=== PATIENT | male | born 1970 | race Caucasian/White ===

== ENCOUNTER 2022-02-03 16:16 | Inpatient (IN) | payer MEDICAID ==
[~2022-02-03] VITALS: Ht 170.2 cm; Wt 100.2 kg
[~2022-02-03 16:16] MED LIST: ATROPINE SULFATE 1MG/10ML SYR ONE; ETOMIDATE 2MG/ML 10ML VIAL IV ONE; SODIUM CHLORIDE 0.9% 10ML VIAL ONE; VECURONIUM BROMIDE 10 MG/VIAL IV ONE
[2022-02-03 16:37] LABS: BASOPHILS % 0.5 % (0.0-2.0); EOSINOPHILS % 0.6 % (0.0-5.0); HEMATOCRIT. 33.2 % (42.0-52.0); HEMOGLOBIN. 11.1 g/dL (14.0-18.0); LYMPHOCYTES % 14.9 % (20.0-50.0); MEAN CORPUSCULAR HEMOGLOBIN 28.9 pg (28.0-32.0); MEAN CORPUSCULAR VOLUME 86.7 fL (80.0-94.0); MEAN PLATELET VOLUME 9.9 fl (7.4-10.4); MONOCYTES % 11.2 % (2.0-8.0); NEUTROPHILS % 72.8 % (40.0-76.0); PLATELET 141 x1000/uL (130-400); RED BLOOD CELL COUNT 3.83 mill/uL (4.7-6.1); RED CELL DISTRIBUTION WIDTH 16.2 % (11.6-14.6)
[2022-02-03 16:42] LABS: CHLORIDE 103 mEq/L (98-107)
[2022-02-03] MEDS: LORAZEPAM 2MG/ML CPJ IV PRN (16:45)
[2022-02-03] MEDS ORDERED: SODIUM CHLORIDE 0.9% 1,000 ML IV NR (17:00)
[2022-02-03] MEDS ORDERED: LORAZEPAM 2MG/ML CPJ IV ONE ×2 (17:00→18:00)
[2022-02-03] MEDS ORDERED: LEVETIRACETAM 1000MG PREMIX 100 ML IV ONE ×2 (17:00→17:15)
[2022-02-03] MEDS ORDERED: FENTANYL 2500MCG/250ML PMX 250 ML IV PRN ×2 (17:15)
[2022-02-03] MEDS: PROPOFOL 10MG/ML 100ML 100 ML IV SCH (17:15)
[2022-02-03 18:18] LABS: CLARITY URINE CLEAR (CLEAR); COLOR URINE YELLOW (YELLOW); KETONES URINE NEGATIVE (NEGATIVE); LEUKOCYTE ESTERASE URINE 1+ (NEGATIVE); NITRITE URINE NEGATIVE (NEGATIVE); OCCULT BLOOD URINE 1+ (NEGATIVE); PH URINE 5.5 (4.5-8.0); PROTEIN URINE 1+ (NEGATIVE); SPECIFIC GRAVITY URINE 1.015 (1.005-1.030); UROBILINOGEN URINE 0.2 E.U./dL (0.2-1.0)
[2022-02-03 18:28] LABS: *AMPHETAMINES SCREEN URINE NEGATIVE (NEGATIVE); *BARBITURATES SCREEN URINE NEGATIVE (NEGATIVE)
[2022-02-03 18:29] LABS: *BENZODIAZEPINES SCREEN URINE NEGATIVE (NEGATIVE); *COCAINE SCREEN URINE NEGATIVE (NEGATIVE); METHADONE URINE SCREEN NEGATIVE (NEGATIVE); OPIATES URINE SCREEN NEGATIVE (NEGATIVE); PHENCYCLIDINE URINE SCREEN NEGATIVE (NEGATIVE)
[2022-02-03 18:30] LABS: CANNABINOID URINE SCREEN NEGATIVE (NEGATIVE)
[2022-02-03 18:41] LABS: BG BASE EXCESS -3.9 mmol/L (-2.0-2.0); BG CARBOXYHEMOGLOBIN 0.3 % (0.5-1.5); BG DEOXYHEMOGLOBIN 0.8 % (0.0-5.0); BG FRACTION INSPIRED OXYGEN 100; BG HCO3 ACT 19.7 mmol/L (22.0-26.0); BG METHEMOGLOBIN 0.3 % (0.0-1.5); BG OXYGEN SATURATION 99.2 % (92.0-98.5); BG OXYHEMOGLOBIN 98.6 % (94.0-97.0); BG PCO2 30.8 mmHg (35.0-45.0); BG PH 7.423 (7.350-7.450); BG SAMPLE SITE RIGHT RADIAL; BG TOTAL HEMOGLOBIN 10.7 g/dL (12.0-18.0); BG VENT MODE VENT - AC
[2022-02-03] MEDS ORDERED: IPRATROPIUM/ALBUTEROL 0.5-3(2.5)MG/3ML NEB HHN PRN (19:30)
[2022-02-03] MEDS ORDERED: DIPHENHYDRAMINE 50MG/ML VIAL IV PRN (19:30)
[2022-02-03] MEDS ORDERED: GUAIFENESIN 200MG/10ML SUGAR FREE UDC PO PRN (19:30)
[2022-02-03] MEDS ORDERED: DOCUSATE SODIUM 100MG CAPSULE PO PRN (19:30)
[2022-02-03] MEDS ORDERED: HYDRALAZINE 20MG/ML VIAL IV PRN (19:30)
[2022-02-03] MEDS ORDERED: HYDROCODONE/ACETAMINOPHEN 5/325MG TABLET PO PRN (19:30)
[2022-02-03] MEDS ORDERED: DEXTROSE 50% WATER 50ML SYRINGE IV PRN (19:30)
[2022-02-03] MEDS ORDERED: ACETAMINOPHEN 325MG TABLET PO PRN (19:30)
[2022-02-03] MEDS ORDERED: MORPHINE SULFATE 2 MG/ML CPJ (NOT FOR IM USE) IV PRN (19:30)
[2022-02-03] MEDS ORDERED: ONDANSETRON HCL 4MG/2ML INJ IV PRN (19:30)
[2022-02-03] MEDS ORDERED: MAGNESIUM/ALUMINUM HYDROXIDE/SIMETHICONE 30ML UDC PO PRN (19:30)
[2022-02-03] MEDS: ENOXAPARIN 40MG/0.4ML SYR SUBCUT SCH (21:01)
[2022-02-03] MEDS: BLOOD SUGAR DIAGNOSTIC STRIP TEST SCH (21:01)
[2022-02-03] MEDS: INSULIN LISPRO 100 UNITS/ML SUBCUT SCH (21:05)
[2022-02-03] MEDS ORDERED: NALOXONE HCL 0.4MG/ML VIAL IV PRN (21:30)
[2022-02-03] MEDS: SODIUM CHLORIDE 0.9% INJ 3ML FLUSH IVF SCH (22:13)
[2022-02-04] VITALS (80 sets, daily range): BP systolic 96–148; BP diastolic 66–92
[2022-02-04] MEDS: BLOOD SUGAR DIAGNOSTIC STRIP TEST SCH ×4 (01:30→18:55)
[2022-02-04] MEDS: LORAZEPAM 2MG/ML CPJ IV PRN ×2 (03:46→20:14)
[2022-02-04] MEDS: SODIUM CHLORIDE 0.9% INJ 3ML FLUSH IVF SCH ×3 (05:14→20:14)
[2022-02-04] MEDS: PROPOFOL 10MG/ML 100ML 100 ML IV SCH (05:15)
[2022-02-04 05:35] LABS: BASOPHILS % 0.4 % (0.0-2.0); HEMATOCRIT. 30.9 % (42.0-52.0); HEMOGLOBIN. 10.3 g/dL (14.0-18.0); LYMPHOCYTES % 20.4 % (20.0-50.0); MEAN CORPUSCULAR HEMOGLOBIN 29.1 pg (28.0-32.0); MEAN CORPUSCULAR VOLUME 87.2 fL (80.0-94.0); MEAN PLATELET VOLUME 10.1 fl (7.4-10.4); MONOCYTES % 11.9 % (2.0-8.0); NEUTROPHILS % 65.3 % (40.0-76.0); PLATELET 131 x1000/uL (130-400); RED BLOOD CELL COUNT 3.55 mill/uL (4.7-6.1); RED CELL DISTRIBUTION WIDTH 16.4 % (11.6-14.6)
[2022-02-04 05:53] LABS: CHLORIDE 108 mEq/L (98-107)
[2022-02-04] MEDS ORDERED: LEVETIRACETAM 500 MG in SODIUM CHLORIDE 0.9% 100 ML IV SCH (08:00)
[2022-02-04] MEDS: INSULIN LISPRO 100 UNITS/ML SUBCUT SCH ×3 (08:20→19:00)
[2022-02-04 08:29] LABS: BG CARBOXYHEMOGLOBIN 0.2 % (0.5-1.5); BG DEOXYHEMOGLOBIN 1.3 % (0.0-5.0); BG FRACTION INSPIRED OXYGEN 50; BG HCO3 ACT 18.6 mmol/L (22.0-26.0); BG METHEMOGLOBIN 0.2 % (0.0-1.5); BG OXYGEN SATURATION 98.7 % (92.0-98.5); BG OXYHEMOGLOBIN 98.3 % (94.0-97.0); BG PCO2 26.7 mmHg (35.0-45.0); BG PH 7.461 (7.350-7.450); BG PO2 229.7 mmHg (75.0-100.0); BG SAMPLE SITE LEFT RADIAL; BG VENT MODE VENT - AC
[2022-02-04] MEDS: LEVETIRACETAM 500MG PREMIX 100 ML IV SCH ×2 (09:18→20:14)
[2022-02-04] MEDS: DEXT 5%/0.45% NACL 1000ML 1,000 ML IV SCH (10:03)
[2022-02-04] MEDS ORDERED: MIDAZOLAM HCL 100 MG in SODIUM CHLORIDE 0.9% 80 ML IV PRN (11:30)
[2022-02-04] MEDS ORDERED: CEFTRIAXONE 1 G PREMIX 50 ML IV SCH (11:30)
[2022-02-04] MEDS: PANTOPRAZOLE SODIUM 40 MG/VIAL IV SCH (12:43)
[2022-02-04] MEDS: CEFTRIAXONE 1,000 MG in DEXTROSE 5% WATER 50 ML IV SCH (13:43)
[2022-02-04] MEDS: IPRATROPIUM/ALBUTEROL 0.5-3(2.5)MG/3ML NEB HHN SCH ×2 (14:22→20:48)
[2022-02-04] MEDS: FENTANYL 2500MCG/250ML PMX 250 ML IV PRN (14:29)
[2022-02-04] MEDS: ENOXAPARIN 40MG/0.4ML SYR SUBCUT SCH (19:00)
[2022-02-05] VITALS (50 sets, daily range): BP systolic 107–146; BP diastolic 62–96
[2022-02-05] MEDS: BLOOD SUGAR DIAGNOSTIC STRIP TEST SCH ×5 (00:42→23:28)
[2022-02-05] MEDS: INSULIN LISPRO 100 UNITS/ML SUBCUT SCH ×5 (00:42→23:29)
[2022-02-05] MEDS: LORAZEPAM 2MG/ML CPJ IV PRN ×4 (00:48→21:50)
[2022-02-05] MEDS: IPRATROPIUM/ALBUTEROL 0.5-3(2.5)MG/3ML NEB HHN SCH ×3 (02:22→19:58)
[2022-02-05] MEDS: DEXT 5%/0.45% NACL 1000ML 1,000 ML IV SCH (05:19)
[2022-02-05] MEDS: SODIUM CHLORIDE 0.9% INJ 3ML FLUSH IVF SCH ×3 (05:19→21:26)
[2022-02-05 07:04] LABS: BASOPHILS % 0.3 % (0.0-2.0); EOSINOPHILS % 2.4 % (0.0-5.0); HEMATOCRIT. 34.4 % (42.0-52.0); HEMOGLOBIN. 11.2 g/dL (14.0-18.0); LYMPHOCYTES % 12.4 % (20.0-50.0); MEAN CORPUSCULAR HEMOGLOBIN 29.4 pg (28.0-32.0); MEAN PLATELET VOLUME 10.7 fl (7.4-10.4); MONOCYTES % 12.3 % (2.0-8.0); NEUTROPHILS % 72.6 % (40.0-76.0); PLATELET 117 x1000/uL (130-400); RED BLOOD CELL COUNT 3.82 mill/uL (4.7-6.1); RED CELL DISTRIBUTION WIDTH 16.5 % (11.6-14.6)
[2022-02-05 07:45] LABS: CHLORIDE 109 mEq/L (98-107)
[2022-02-05] MEDS: PANTOPRAZOLE SODIUM 40 MG/VIAL IV SCH (08:58)
[2022-02-05] MEDS: LEVETIRACETAM 500MG PREMIX 100 ML IV SCH (08:58)
[2022-02-05 09:07] LABS: BG BASE EXCESS -2.6 mmol/L (-2.0-2.0); BG CARBOXYHEMOGLOBIN 0.3 % (0.5-1.5); BG FRACTION INSPIRED OXYGEN 40; BG HCO3 ACT 21.2 mmol/L (22.0-26.0); BG METHEMOGLOBIN 0.3 % (0.0-1.5); BG OXYHEMOGLOBIN 97.4 % (94.0-97.0); BG PCO2 33.5 mmHg (35.0-45.0); BG PH 7.419 (7.350-7.450); BG SAMPLE SITE RIGHT RADIAL; BG TOTAL HEMOGLOBIN 11.5 g/dL (12.0-18.0); BG VENT MODE VENT - AC
[2022-02-05] MEDS: CEFTRIAXONE 1,000 MG in DEXTROSE 5% WATER 50 ML IV SCH (12:39)
[2022-02-05] MEDS ORDERED: MAGNESIUM 2 G PREMIX 50 ML IV NR (16:00)
[2022-02-05] MEDS: FENTANYL 2500MCG/250ML PMX 250 ML IV PRN (16:42)
[2022-02-05] MEDS ORDERED: MIDAZOLAM 100MG/100ML PREMIX IV PRN (20:30)
[2022-02-05] MEDS ORDERED: LEVETIRACETAM 1000MG PREMIX 100 ML IV SCH (21:00)
[2022-02-05] MEDS: ENOXAPARIN 40MG/0.4ML SYR SUBCUT SCH (21:25)
[2022-02-05] MEDS ORDERED: LEVETIRACETAM 500MG PREMIX 100 ML IV NR (22:30)
[2022-02-06] VITALS (70 sets, daily range): BP systolic 83–167; BP diastolic 42–106
[2022-02-06] MEDS: IPRATROPIUM/ALBUTEROL 0.5-3(2.5)MG/3ML NEB HHN SCH ×4 (01:59→20:42)
[2022-02-06] MEDS: DEXT 5%/0.45% NACL 1000ML 1,000 ML IV SCH ×2 (02:44→21:38)
[2022-02-06] MEDS: LORAZEPAM 2MG/ML CPJ IV PRN ×2 (04:37→21:41)
[2022-02-06] MEDS: BLOOD SUGAR DIAGNOSTIC STRIP TEST SCH ×3 (05:37→17:14)
[2022-02-06] MEDS: INSULIN LISPRO 100 UNITS/ML SUBCUT SCH ×3 (05:38→17:14)
[2022-02-06] MEDS: PHENYTOIN 100 MG/4 ML UDC NG SCH ×3 (05:53→21:38)
[2022-02-06] MEDS: MIDAZOLAM HCL 100 MG in SODIUM CHLORIDE 0.9% 100 ML IV PRN (05:55)
[2022-02-06] MEDS: SODIUM CHLORIDE 0.9% INJ 3ML FLUSH IVF SCH ×3 (05:56→22:00)
[2022-02-06] MEDS: FENTANYL 2500MCG/250ML PMX 250 ML IV PRN ×2 (05:56→18:56)
[2022-02-06 06:00] LABS: BASOPHILS % 0.3 % (0.0-2.0); EOSINOPHILS % 2.4 % (0.0-5.0); HEMATOCRIT. 34.6 % (42.0-52.0); HEMOGLOBIN. 11.6 g/dL (14.0-18.0); LYMPHOCYTES % 18.2 % (20.0-50.0); MEAN CORPUSCULAR HEMOGLOBIN 29.7 pg (28.0-32.0); MEAN PLATELET VOLUME 10.1 fl (7.4-10.4); MONOCYTES % 12.2 % (2.0-8.0); NEUTROPHILS % 66.9 % (40.0-76.0); PLATELET 130 x1000/uL (130-400); RED BLOOD CELL COUNT 3.89 mill/uL (4.7-6.1); RED CELL DISTRIBUTION WIDTH 16.7 % (11.6-14.6)
[2022-02-06] MEDS: PANTOPRAZOLE SODIUM 40 MG/VIAL IV SCH (09:27)
[2022-02-06] MEDS: LEVETIRACETAM 1,500 MG in SODIUM CHLORIDE 0.9% 100 ML IV SCH ×2 (09:34→21:37)
[2022-02-06 09:36] LABS: BG BASE EXCESS -4.5 mmol/L (-2.0-2.0); BG CARBOXYHEMOGLOBIN 0.7 % (0.5-1.5); BG DEOXYHEMOGLOBIN 2.9 % (0.0-5.0); BG FRACTION INSPIRED OXYGEN 40; BG HCO3 ACT 20.6 mmol/L (22.0-26.0); BG METHEMOGLOBIN 0.3 % (0.0-1.5); BG OXYGEN SATURATION 97.1 % (92.0-98.5); BG OXYHEMOGLOBIN 96.1 % (94.0-97.0); BG PH 7.351 (7.350-7.450); BG PO2 103.8 mmHg (75.0-100.0); BG SAMPLE SITE LEFT RADIAL; BG TOTAL HEMOGLOBIN 12.7 g/dL (12.0-18.0); BG VENT MODE VENT - AC
[2022-02-06] MEDS: CEFTRIAXONE 1,000 MG in DEXTROSE 5% WATER 50 ML IV SCH (13:59)
[2022-02-06] MEDS: CLONIDINE 0.1MG TABLET PO PRN (14:58)
[2022-02-06] MEDS: ENOXAPARIN 30MG/0.3ML SYR SUBCUT SCH (21:38)
[2022-02-07] VITALS (59 sets, daily range): BP systolic 99–170; BP diastolic 37–136
[2022-02-07] MEDS: LORAZEPAM 2MG/ML CPJ IV PRN (00:46)
[2022-02-07] MEDS: MIDAZOLAM HCL 100 MG in SODIUM CHLORIDE 0.9% 100 ML IV PRN ×2 (00:46→21:06)
[2022-02-07] MEDS: BLOOD SUGAR DIAGNOSTIC STRIP TEST SCH ×4 (00:47→18:02)
[2022-02-07] MEDS: INSULIN LISPRO 100 UNITS/ML SUBCUT SCH ×4 (00:47→18:06)
[2022-02-07] MEDS: IPRATROPIUM/ALBUTEROL 0.5-3(2.5)MG/3ML NEB HHN SCH ×4 (02:06→20:32)
[2022-02-07] MEDS: FENTANYL 2500MCG/250ML PMX 250 ML IV PRN ×2 (03:11→13:28)
[2022-02-07] MEDS: SODIUM CHLORIDE 0.9% INJ 3ML FLUSH IVF SCH ×3 (05:17→21:21)
[2022-02-07] MEDS: PHENYTOIN 100 MG/4 ML UDC NG SCH ×3 (05:51→21:40)
[2022-02-07 06:32] LABS: BASOPHILS % 0.1 % (0.0-2.0); EOSINOPHILS % 2.8 % (0.0-5.0); HEMOGLOBIN. 10.2 g/dL (14.0-18.0); LYMPHOCYTES % 15.2 % (20.0-50.0); MEAN CORPUSCULAR HEMOGLOBIN 27.7 pg (28.0-32.0); MEAN CORPUSCULAR VOLUME 87.2 fL (80.0-94.0); MEAN PLATELET VOLUME 10.1 fl (7.4-10.4); MONOCYTES % 14.8 % (2.0-8.0); NEUTROPHILS % 67.1 % (40.0-76.0); PLATELET 136 x1000/uL (130-400); RED BLOOD CELL COUNT 3.67 mill/uL (4.7-6.1); RED CELL DISTRIBUTION WIDTH 16.4 % (11.6-14.6)
[2022-02-07 06:40] LABS: CHLORIDE 111 mEq/L (98-107)
[2022-02-07 09:08] LABS: BG CARBOXYHEMOGLOBIN 0.1 % (0.5-1.5); BG DEOXYHEMOGLOBIN 1.5 % (0.0-5.0); BG FRACTION INSPIRED OXYGEN 40; BG HCO3 ACT 19.6 mmol/L (22.0-26.0); BG METHEMOGLOBIN 0.3 % (0.0-1.5); BG OXYGEN SATURATION 98.5 % (92.0-98.5); BG OXYHEMOGLOBIN 98.1 % (94.0-97.0); BG PCO2 34.8 mmHg (35.0-45.0); BG PH 7.368 (7.350-7.450); BG PO2 135.1 mmHg (75.0-100.0); BG SAMPLE SITE RIGHT RADIAL; BG TOTAL HEMOGLOBIN 11.7 g/dL (12.0-18.0); BG VENT MODE VENT - AC
[2022-02-07] MEDS: LEVETIRACETAM 1,500 MG in SODIUM CHLORIDE 0.9% 100 ML IV SCH ×2 (12:14→21:20)
[2022-02-07] MEDS: PANTOPRAZOLE SODIUM 40 MG/VIAL IV SCH (12:48)
[2022-02-07] MEDS: ENOXAPARIN 30MG/0.3ML SYR SUBCUT SCH ×2 (12:58→21:07)
[2022-02-07] MEDS: SULFAMETHOXAZOLE/TRIMETHOPRIM 800/160MG TABLET PO SCH ×2 (12:59→22:59)
[2022-02-07] MEDS: DEXT 5%/0.45% NACL 1000ML 1,000 ML IV SCH (18:07)
[2022-02-07] MEDS ORDERED: AMLODIPINE 2.5MG TABLET NG SCH (21:00)
[2022-02-08] VITALS (62 sets, daily range): BP systolic 112–185; BP diastolic 69–113
[2022-02-08] MEDS: BLOOD SUGAR DIAGNOSTIC STRIP TEST SCH ×4 (00:15→18:17)
[2022-02-08] MEDS: INSULIN LISPRO 100 UNITS/ML SUBCUT SCH ×4 (00:20→18:21)
[2022-02-08] MEDS: CLONIDINE 0.1MG TABLET PO PRN (00:21)
[2022-02-08] MEDS: FENTANYL 2500MCG/250ML PMX 250 ML IV PRN (00:55)
[2022-02-08] MEDS: IPRATROPIUM/ALBUTEROL 0.5-3(2.5)MG/3ML NEB HHN SCH ×3 (01:26→14:19)
[2022-02-08] MEDS: MIDAZOLAM HCL 100 MG in SODIUM CHLORIDE 0.9% 100 ML IV PRN (05:01)
[2022-02-08] MEDS: SODIUM CHLORIDE 0.9% INJ 3ML FLUSH IVF SCH ×2 (06:00→14:57)
[2022-02-08] MEDS: PHENYTOIN 100 MG/4 ML UDC NG SCH ×2 (06:07→14:56)
[2022-02-08] MEDS: ENOXAPARIN 30MG/0.3ML SYR SUBCUT SCH (08:35)
[2022-02-08] MEDS: SULFAMETHOXAZOLE/TRIMETHOPRIM 800/160MG TABLET PO SCH (08:35)
[2022-02-08] MEDS: PANTOPRAZOLE SODIUM 40 MG/VIAL IV SCH (08:35)
[2022-02-08] MEDS ORDERED: AMLODIPINE 5MG TABLET NG SCH (09:00)
[2022-02-08 09:03] LABS: BG BASE EXCESS -2.3 mmol/L (-2.0-2.0); BG CARBOXYHEMOGLOBIN 0.2 % (0.5-1.5); BG DEOXYHEMOGLOBIN 2.8 % (0.0-5.0); BG FRACTION INSPIRED OXYGEN 40; BG HCO3 ACT 22.7 mmol/L (22.0-26.0); BG METHEMOGLOBIN 0.3 % (0.0-1.5); BG OXYGEN SATURATION 97.2 % (92.0-98.5); BG OXYHEMOGLOBIN 96.7 % (94.0-97.0); BG PCO2 39.6 mmHg (35.0-45.0); BG PEEP (cmH2O) 0 cmH2O; BG PH 7.376 (7.350-7.450); BG PO2 101.2 mmHg (75.0-100.0); BG SAMPLE SITE LEFT RADIAL; BG TOTAL HEMOGLOBIN 10.3 g/dL (12.0-18.0); BG VENT MODE VENT - AC
[2022-02-08] MEDS: LEVETIRACETAM 1,500 MG in SODIUM CHLORIDE 0.9% 100 ML IV SCH (09:24)
[2022-02-08 10:43] LABS: BG BASE EXCESS -5.1 mmol/L (-2.0-2.0); BG CARBOXYHEMOGLOBIN 0.3 % (0.5-1.5); BG CPAP (cmH2O) 0 cm(H2O); BG DEOXYHEMOGLOBIN 3.9 % (0.0-5.0); BG FRACTION INSPIRED OXYGEN 40; BG HCO3 ACT 21.1 mmol/L (22.0-26.0); BG METHEMOGLOBIN 0.3 % (0.0-1.5); BG OXYGEN SATURATION 96.1 % (92.0-98.5); BG OXYHEMOGLOBIN 95.5 % (94.0-97.0); BG PEEP (cmH2O) 0 cmH2O; BG PH 7.299 (7.350-7.450); BG PO2 97.9 mmHg (75.0-100.0); BG SAMPLE SITE LEFT RADIAL; BG TOTAL HEMOGLOBIN 10.9 g/dL (12.0-18.0); BG VENT MODE VENT - CPAP
[2022-02-08] MEDS ORDERED: LIDOCAINE HCL 1% 10 MG/ML 10ML VIAL ONE (13:19)
[2022-02-08] MEDS: DEXT 5%/0.45% NACL 1000ML 1,000 ML IV SCH (14:57)
== END 2022-02-08 21:46 | disposition left against medical advice (07) | DRG 720 ==
LOC: ER 16:16 → CVICU 19:01 → ENRESERV 23:43
PROVIDERS: ADMIT Internal Medicine; ATTEND Internal Medicine
PROC: 5A1955Z Respiratory Ventilation, Greater than 96 Consecutive Hours (ICD-10-PCS; principal; 2022-02-03)
PROC: 0BH17EZ Insertion of Endotracheal Airway into Trachea, Via Natural or Artificial Opening (ICD-10-PCS; 2022-02-03)
PROC: 4A10X4Z Monitoring of Central Nervous Electrical Activity, External Approach (ICD-10-PCS; 2022-02-05)
PROC: 0JBR0ZZ Excision of Left Foot Subcutaneous Tissue and Fascia, Open Approach (ICD-10-PCS; 2022-02-08)
PROC: 02HV33Z Insertion of Infusion Device into Superior Vena Cava, Percutaneous Approach (ICD-10-PCS; 2022-02-08)
PROC: B548ZZA Ultrasonography of Superior Vena Cava, Guidance (ICD-10-PCS; 2022-02-08)
DX: A41.51 Sepsis due to Escherichia coli [E. coli] (principal); J96.01 Acute respiratory failure with hypoxia; G93.40 Encephalopathy, unspecified; G40.401 Other generalized epilepsy and epileptic syndromes, not intractable, with status epilepticus; E72.20 Disorder of urea cycle metabolism, unspecified; I13.2 Hypertensive heart and chronic kidney disease with heart failure and with stage 5 chronic kidney disease, or end stage renal disease; N17.9 Acute kidney failure, unspecified; E11.22 Type 2 diabetes mellitus with diabetic chronic kidney disease; E87.3 Alkalosis; N30.00 Acute cystitis without hematuria; I25.10 Atherosclerotic heart disease of native coronary artery without angina pectoris; E11.621 Type 2 diabetes mellitus with foot ulcer; E87.5 Hyperkalemia; E11.65 Type 2 diabetes mellitus with hyperglycemia; E66.09 Other obesity due to excess calories; E83.42 Hypomagnesemia; E78.00 Pure hypercholesterolemia, unspecified; N18.6 End stage renal disease; R00.1 Bradycardia, unspecified; S50.821A Blister (nonthermal) of right forearm, initial encounter; X58.XXXA Exposure to other specified factors, initial encounter; I50.9 Heart failure, unspecified; Z86.73 Personal history of transient ischemic attack (TIA), and cerebral infarction without residual deficits; Z86.74 Personal history of sudden cardiac arrest; I25.2 Old myocardial infarction; Z78.1 Physical restraint status; Y93.89 Activity, other specified; Y92.89 Other specified places as the place of occurrence of the external cause; Y99.8 Other external cause status
CPT/HCPCS: 36415; 36600; 71045; 76937; 80048; 80053; 80305; 80320; 81003; 82040; 82140; 82375; 82805; 82962; 83036; 83735; 83880; 84134; 84443; 84484; 85025; 87070; 87077; 87186; 93005; 93306; 94002; 94003; 94640; 95816; 99291; C1725; C1769; C9113; J0461; J0696; J1650; J1815; J1953; J2060; J2250; J2704; J3010; J3475; J3490; J7040; J7050; J7060; A4315; G0480

== ENCOUNTER 2022-02-26 11:54 | Inpatient (IN) | payer MEDICAID ==
[~2022-02-26] VITALS: Ht 177.8 cm; Wt 103.0 kg
[2022-02-26 13:15] LABS: HEMATOCRIT. 33.2 % (42.0-52.0); MEAN CORPUSCULAR HEMOGLOBIN 28.7 pg (28.0-32.0); MEAN CORPUSCULAR VOLUME 86.7 fL (80.0-94.0); MEAN PLATELET VOLUME 9.4 fl (7.4-10.4); PLATELET 183 x1000/uL (130-400); RED BLOOD CELL COUNT 3.83 mill/uL (4.7-6.1); RED CELL DISTRIBUTION WIDTH 16.4 % (11.6-14.6)
[2022-02-26 13:43] LABS: CHLORIDE 105 mEq/L (98-107); CREATINE KINASE 61 IU/L (39-308); ETHANOL BLOOD < 10 mg/dL
[2022-02-26 13:52] LABS: PLATELET ESTIMATE NORMAL
[2022-02-26 13:54] LABS: CLARITY URINE CLEAR (CLEAR); COLOR URINE YELLOW (YELLOW); KETONES URINE NEGATIVE (NEGATIVE); LEUKOCYTE ESTERASE URINE NEGATIVE (NEGATIVE); NITRITE URINE NEGATIVE (NEGATIVE); OCCULT BLOOD URINE NEGATIVE (NEGATIVE); PROTEIN URINE 1+ (NEGATIVE); SPECIFIC GRAVITY URINE 1.016 (1.005-1.030); UROBILINOGEN URINE 0.2 E.U./dL (0.2-1.0)
[2022-02-26] MEDS ORDERED: ASPIRIN 325MG EC TABLET PO NR (14:00)
[2022-02-26 14:10] LABS: *AMPHETAMINES SCREEN URINE NEGATIVE (NEGATIVE); *BARBITURATES SCREEN URINE NEGATIVE (NEGATIVE); *BENZODIAZEPINES SCREEN URINE NEGATIVE (NEGATIVE); *COCAINE SCREEN URINE NEGATIVE (NEGATIVE); METHADONE URINE SCREEN NEGATIVE (NEGATIVE); OPIATES URINE SCREEN NEGATIVE (NEGATIVE); PHENCYCLIDINE URINE SCREEN NEGATIVE (NEGATIVE)
[2022-02-26 14:11] LABS: CANNABINOID URINE SCREEN NEGATIVE (NEGATIVE)
[2022-02-26] MEDS ORDERED: INSULIN REGULAR (HUMULIN R) 300UNITS/3ML VIAL SUBCUT NR (14:30)
[2022-02-26] MEDS ORDERED: HYDRALAZINE 20MG/ML VIAL IV ONE (16:30)
[2022-02-26] MEDS ORDERED: ONDANSETRON HCL 4MG/2ML INJ IV PRN (16:45)
[2022-02-26] MEDS ORDERED: GUAIFENESIN 200MG/10ML SUGAR FREE UDC PO PRN (16:45)
[2022-02-26] MEDS ORDERED: MAGNESIUM/ALUMINUM HYDROXIDE/SIMETHICONE 30ML UDC PO PRN (16:45)
[2022-02-26] MEDS ORDERED: CLONIDINE 0.1MG TABLET PO PRN (16:45)
[2022-02-26] MEDS ORDERED: ACETAMINOPHEN 325MG TABLET PO PRN ×2 (16:45)
[2022-02-26] MEDS ORDERED: ENOXAPARIN 40MG/0.4ML SYR SUBCUT SCH (16:45)
[2022-02-26] MEDS: HYDROCODONE/ACETAMINOPHEN 5/325MG TABLET PO PRN (16:55)
[2022-02-26] MEDS: ENOXAPARIN 30MG/0.3ML SYR SUBCUT SCH (19:52)
[2022-02-26 20:00] VITALS: BP 179/94
[2022-02-26] MEDS ORDERED: DEXTROSE 50% WATER 50ML SYRINGE IV PRN (21:15)
[2022-02-26] MEDS ORDERED: KEPP500 PO (21:35)
[2022-02-26] MEDS ORDERED: DIVA-75 PO (21:35)
[2022-02-26] MEDS: LORAZEPAM 2MG/ML CPJ IV PRN (21:47)
[2022-02-26] MEDS ORDERED: LEVETIRACETAM 500MG TABLET PO SCH (22:30)
[2022-02-27] VITALS (7 sets, daily range): BP systolic 120–179; BP diastolic 70–94
[2022-02-27] MEDS: ATORVASTATIN CALCIUM 40MG TABLET PO SCH ×2 (00:06→20:41)
[2022-02-27] MEDS: INSULIN GLARGINE 100 UNITS/ML SUBCUT SCH ×2 (00:07→22:11)
[2022-02-27] MEDS: HYDROCODONE/ACETAMINOPHEN 5/325MG TABLET PO PRN (00:24)
[2022-02-27] MEDS ORDERED: CARV12.545 PO (03:20)
[2022-02-27] MEDS ORDERED: ATOR-2 PO (03:20)
[2022-02-27] MEDS ORDERED: DICL100G31 TP (03:20)
[2022-02-27] MEDS ORDERED: DIVA-75 PO (03:20)
[2022-02-27] MEDS ORDERED: CHLO25TA2 PO (03:20)
[2022-02-27] MEDS ORDERED: AMLO10TA80 MT (03:20)
[2022-02-27] MEDS ORDERED: ASPI-1160 PO (03:20)
[2022-02-27] MEDS ORDERED: SERT-422 PO (03:30)
[2022-02-27] MEDS ORDERED: TRAZ-251 PO (03:30)
[2022-02-27] MEDS ORDERED: INSU100I28 SQ (03:30)
[2022-02-27] MEDS ORDERED: FERR325T6 PO (03:30)
[2022-02-27] MEDS ORDERED: TAMS-11 PO (03:30)
[2022-02-27] MEDS ORDERED: OMEP20CA14 PO (03:30)
[2022-02-27] MEDS ORDERED: SILV50CR31 TP (03:30)
[2022-02-27] MEDS ORDERED: RIVA20TA PO (03:30)
[2022-02-27] MEDS ORDERED: GABA-529 PO (03:30)
[2022-02-27] MEDS ORDERED: [UNRECOGNIZED DRUG - CODE] TP (03:30)
[2022-02-27] MEDS: ENOXAPARIN 30MG/0.3ML SYR SUBCUT SCH (06:00)
[2022-02-27] MEDS: BLOOD SUGAR DIAGNOSTIC STRIP TEST SCH ×4 (06:36→20:51)
[2022-02-27] MEDS: INSULIN LISPRO 100 UNITS/ML SUBCUT SCH ×4 (06:36→22:11)
[2022-02-27 07:23] LABS: BASOPHILS % 0.3 % (0.0-2.0); EOSINOPHILS % 3.8 % (0.0-5.0); HEMATOCRIT. 33.5 % (42.0-52.0); LYMPHOCYTES % 25.8 % (20.0-50.0); MEAN CORPUSCULAR HEMOGLOBIN 28.9 pg (28.0-32.0); MEAN PLATELET VOLUME 9.7 fl (7.4-10.4); MONOCYTES % 11.3 % (2.0-8.0); NEUTROPHILS % 58.8 % (40.0-76.0); PLATELET 183 x1000/uL (130-400)
[2022-02-27 07:25] LABS: CHLORIDE 108 mEq/L (98-107)
[2022-02-27 07:33] LABS: PHOSPHORUS 2.9 mg/dL (2.5-4.9)
[2022-02-27 07:35] LABS: TOTAL IRON BINDING CAPACITY 260 ug/dL (250-450)
[2022-02-27 07:53] LABS: VALPROIC ACID < 3.0 ug/mL (50-100)
[2022-02-27 07:59] LABS: FOLIC ACID (FOLATE) SERUM 15.6 ng/mL (>5.38)
[2022-02-27] MEDS ORDERED: DIVALPROEX SODIUM 500MG DR TABLET PO SCH (10:00)
[2022-02-27] MEDS ORDERED: MAGNESIUM OXIDE 400MG TABLET PO SCH (10:00)
[2022-02-27] MEDS: LEVETIRACETAM 500MG TABLET PO SCH ×2 (10:06→20:41)
[2022-02-27] MEDS: GABAPENTIN 100MG CAPSULE PO SCH ×3 (10:07→17:53)
[2022-02-27] MEDS: AMLODIPINE 10MG TABLET PO SCH (10:07)
[2022-02-27] MEDS: SERTRALINE HCL 50MG TABLET PO SCH (10:07)
[2022-02-27] MEDS: CARVEDILOL 12.5MG TABLET PO SCH ×2 (10:08→20:42)
[2022-02-27] MEDS: TAMSULOSIN HCL 0.4MG SR CAPSULE PO SCH (10:16)
[2022-02-27] MEDS ORDERED: INFLUENZA VACCINE 05/PF 0.5 ML SYRINGE IM ONE (12:00)
[2022-02-27] MEDS: KETOROLAC 15MG/ML VIAL IV PRN ×2 (16:02→22:32)
[2022-02-27] MEDS: CHLORTHALIDONE 25MG TABLET PO SCH ×2 (16:03→22:10)
[2022-02-27] MEDS: DIVALPROEX SODIUM 500MG DR TABLET PO SCH ×2 (16:09→20:42)
[2022-02-27] MEDS: MAGNESIUM OXIDE 400MG TABLET PO SCH ×2 (16:13→22:07)
[2022-02-27] MEDS: RIVAROXABAN 20 MG TABLET PO SCH (17:53)
[2022-02-27] MEDS ORDERED: BACL-141 PO (20:56)
[2022-02-28] VITALS: BP 119/65
[2022-02-28 04:00] VITALS: BP 154/87
[2022-02-28] MEDS: BACLOFEN 10MG TABLET PO SCH ×3 (06:43→21:57)
[2022-02-28] MEDS: BLOOD SUGAR DIAGNOSTIC STRIP TEST SCH ×4 (06:51→20:55)
[2022-02-28] MEDS: INSULIN LISPRO 100 UNITS/ML SUBCUT SCH ×4 (06:52→20:55)
[2022-02-28 07:48] LABS: BASOPHILS % 0.3 % (0.0-2.0); EOSINOPHILS % 3.4 % (0.0-5.0); HEMATOCRIT. 37.4 % (42.0-52.0); HEMOGLOBIN. 11.8 g/dL (14.0-18.0); LYMPHOCYTES % 26.8 % (20.0-50.0); MEAN CORPUSCULAR HEMOGLOBIN 28.9 pg (28.0-32.0); MEAN CORPUSCULAR VOLUME 91.8 fL (80.0-94.0); MEAN PLATELET VOLUME 9.8 fl (7.4-10.4); MONOCYTES % 10.9 % (2.0-8.0); NEUTROPHILS % 58.6 % (40.0-76.0); PLATELET 172 x1000/uL (130-400); RED BLOOD CELL COUNT 4.07 mill/uL (4.7-6.1); RED CELL DISTRIBUTION WIDTH 16.6 % (11.6-14.6)
[2022-02-28] MEDS: KETOROLAC 15MG/ML VIAL IV PRN (07:51)
[2022-02-28 08:00] VITALS: BP 163/91
[2022-02-28] MEDS: AMLODIPINE 10MG TABLET PO SCH (08:06)
[2022-02-28] MEDS: SERTRALINE HCL 50MG TABLET PO SCH (08:06)
[2022-02-28] MEDS: CARVEDILOL 12.5MG TABLET PO SCH ×2 (08:06→20:42)
[2022-02-28] MEDS: GABAPENTIN 100MG CAPSULE PO SCH ×3 (08:06→17:42)
[2022-02-28] MEDS: LEVETIRACETAM 500MG TABLET PO SCH ×2 (08:06→20:42)
[2022-02-28] MEDS: DIVALPROEX SODIUM 500MG DR TABLET PO SCH ×2 (08:06→20:42)
[2022-02-28] MEDS: TAMSULOSIN HCL 0.4MG SR CAPSULE PO SCH (08:06)
[2022-02-28 08:22] LABS: PHOSPHORUS 3.8 mg/dL (2.5-4.9)
[2022-02-28] MEDS ORDERED: VERAPAMIL HCL 2.5 MG/1 ML 2ML VIAL IV ONE (08:58)
[2022-02-28] MEDS ORDERED: DIPHENHYDRAMINE 50MG/ML VIAL ONE (08:58)
[2022-02-28] MEDS ORDERED: LIDOCAINE HCL 1% 20ML VIAL (Pyxis) INJ ONE (08:58)
[2022-02-28] MEDS ORDERED: MIDAZOLAM HCL 2 MG/2 ML VIAL ONE (08:59)
[2022-02-28] MEDS ORDERED: FENTANYL CITRATE/PF 50MCG/ML 2ML VIAL ONE (08:59)
[2022-02-28] MEDS ORDERED: IODIXANOL 320MG/ML 100 ML BOTTLE IV ONE (08:59)
[2022-02-28] MEDS ORDERED: SODIUM CHLORIDE 0.9% 1,000 ML IV ONE ×2 (10:45→23:15)
[2022-02-28] MEDS ORDERED: ATROPINE SULFATE 1MG/10ML SYR IV PRN (10:45)
[2022-02-28 12:00] VITALS: BP_SYST 118; BP_SYST 19; BP_DIAS 83
[2022-02-28] MEDS ORDERED: NICARDIPINE 100MCG/ML 10ML VIAL (CATH LAB) IV ONE (14:57)
[2022-02-28] MEDS ORDERED: NITROGLYCERIN 50MCG/ML 10ML VIAL (CATH LAB) IV ONE (14:57)
[2022-02-28] MEDS ORDERED: HEPARIN SODIUM 1,000 UNIT/1ML VIAL IV ONE (14:57)
[2022-02-28 16:00] VITALS: BP 132/90
[2022-02-28] MEDS: RIVAROXABAN 20 MG TABLET PO SCH (17:42)
[2022-02-28 20:00] VITALS: BP 125/76
[2022-02-28] MEDS: CHLORTHALIDONE 25MG TABLET PO SCH (20:42)
[2022-02-28] MEDS: ATORVASTATIN CALCIUM 40MG TABLET PO SCH (20:42)
[2022-02-28] MEDS: HYDROCODONE/ACETAMINOPHEN 5/325MG TABLET PO PRN (20:43)
[2022-02-28] MEDS: INSULIN GLARGINE 100 UNITS/ML SUBCUT SCH (21:57)
[2022-02-28] MEDS: LORAZEPAM 2MG/ML CPJ IV PRN (23:56)
[2022-03-01 00:15] VITALS: BP 131/95
[2022-03-01 04:00] VITALS: BP 119/73
[2022-03-01] MEDS: BACLOFEN 10MG TABLET PO SCH ×3 (05:28→21:42)
[2022-03-01] MEDS: INSULIN LISPRO 100 UNITS/ML SUBCUT SCH ×4 (06:31→21:45)
[2022-03-01] MEDS: BLOOD SUGAR DIAGNOSTIC STRIP TEST SCH ×4 (06:31→21:25)
[2022-03-01 08:00] VITALS: BP 183/76
[2022-03-01] MEDS: DIVALPROEX SODIUM 500MG DR TABLET PO SCH ×2 (09:00→21:42)
[2022-03-01] MEDS: AMLODIPINE 10MG TABLET PO SCH (09:00)
[2022-03-01] MEDS: CARVEDILOL 12.5MG TABLET PO SCH ×2 (09:00→21:42)
[2022-03-01] MEDS: GABAPENTIN 100MG CAPSULE PO SCH ×3 (09:00→17:00)
[2022-03-01] MEDS: TAMSULOSIN HCL 0.4MG SR CAPSULE PO SCH (09:00)
[2022-03-01] MEDS: SERTRALINE HCL 50MG TABLET PO SCH (09:00)
[2022-03-01] MEDS: LORAZEPAM 2MG/ML CPJ IV PRN ×2 (09:04→09:17)
[2022-03-01] MEDS: LEVETIRACETAM 1000MG PREMIX 100 ML IV SCH ×2 (09:35→21:41)
[2022-03-01 10:06] LABS: BG BASE EXCESS -1.1 mmol/L (-2.0-2.0); BG CARBOXYHEMOGLOBIN 0.4 % (0.5-1.5); BG DEOXYHEMOGLOBIN 2.7 % (0.0-5.0); BG FRACTION INSPIRED OXYGEN 28; BG HCO3 ACT 25.3 mmol/L (22.0-26.0); BG METHEMOGLOBIN 0.1 % (0.0-1.5); BG OXYGEN SATURATION 97.3 % (92.0-98.5); BG OXYHEMOGLOBIN 96.8 % (94.0-97.0); BG PCO2 49.6 mmHg (35.0-45.0); BG PH 7.325 (7.350-7.450); BG PO2 109.7 mmHg (75.0-100.0); BG SAMPLE SITE LEFT RADIAL; BG TOTAL HEMOGLOBIN 11.5 g/dL (12.0-18.0); BG VENT MODE NASAL CANNULA
[2022-03-01 12:00] VITALS: BP 165/90
[2022-03-01 16:00] VITALS: BP 134/79
[2022-03-01 16:11] LABS: BASOPHILS % 0.1 % (0.0-2.0); EOSINOPHILS % 3.9 % (0.0-5.0); HEMATOCRIT. 34.4 % (42.0-52.0); HEMOGLOBIN. 11.2 g/dL (14.0-18.0); LYMPHOCYTES % 23.9 % (20.0-50.0); MEAN CORPUSCULAR HEMOGLOBIN 28.7 pg (28.0-32.0); MEAN CORPUSCULAR VOLUME 88.6 fL (80.0-94.0); MEAN PLATELET VOLUME 9.9 fl (7.4-10.4); MONOCYTES % 10.3 % (2.0-8.0); NEUTROPHILS % 61.8 % (40.0-76.0); PLATELET 159 x1000/uL (130-400); RED BLOOD CELL COUNT 3.88 mill/uL (4.7-6.1); RED CELL DISTRIBUTION WIDTH 16.4 % (11.6-14.6)
[2022-03-01 16:21] LABS: INR 1.1; PROTHROMBIN TIME 11.9 sec (9.6-11.0)
[2022-03-01 16:43] LABS: CHLORIDE 108 mEq/L (98-107)
[2022-03-01 16:59] LABS: PHENOBARBITAL < 2.1 ug/mL (15.0-40.0)
[2022-03-01] MEDS: RIVAROXABAN 20 MG TABLET PO SCH (18:06)
[2022-03-01 20:00] VITALS: BP 144/68
[2022-03-01] MEDS: CHLORTHALIDONE 25MG TABLET PO SCH (21:43)
[2022-03-01] MEDS: ATORVASTATIN CALCIUM 40MG TABLET PO SCH (21:48)
[2022-03-01] MEDS: INSULIN GLARGINE 100 UNITS/ML SUBCUT SCH (22:19)
[2022-03-02] VITALS (7 sets, daily range): BP systolic 109–157; BP diastolic 63–95
[2022-03-02] MEDS: BACLOFEN 10MG TABLET PO SCH ×3 (05:58→20:58)
[2022-03-02] MEDS: BLOOD SUGAR DIAGNOSTIC STRIP TEST SCH ×4 (07:30→21:07)
[2022-03-02] MEDS: LORAZEPAM 2MG/ML CPJ IV PRN (07:42)
[2022-03-02] MEDS: LEVETIRACETAM 1000MG PREMIX 100 ML IV SCH ×3 (08:32→21:09)
[2022-03-02] MEDS: INSULIN LISPRO 100 UNITS/ML SUBCUT SCH ×4 (10:01→20:53)
[2022-03-02] MEDS: GABAPENTIN 100MG CAPSULE PO SCH ×3 (10:07→17:00)
[2022-03-02] MEDS: TAMSULOSIN HCL 0.4MG SR CAPSULE PO SCH (10:07)
[2022-03-02] MEDS: AMLODIPINE 10MG TABLET PO SCH (10:09)
[2022-03-02] MEDS: SERTRALINE HCL 50MG TABLET PO SCH (10:09)
[2022-03-02] MEDS: CARVEDILOL 12.5MG TABLET PO SCH ×2 (10:10→20:55)
[2022-03-02] MEDS: DIVALPROEX SODIUM 500MG DR TABLET PO SCH (10:10)
[2022-03-02] MEDS: RIVAROXABAN 20 MG TABLET PO SCH (17:43)
[2022-03-02] MEDS: INSULIN GLARGINE 100 UNITS/ML SUBCUT SCH (20:53)
[2022-03-02] MEDS: ATORVASTATIN CALCIUM 40MG TABLET PO SCH (20:58)
[2022-03-02] MEDS: CHLORTHALIDONE 25MG TABLET PO SCH (21:09)
[2022-03-02] MEDS: LEVETIRACETAM 1,500 MG in SODIUM CHLORIDE 0.9% 100 ML IV SCH (21:11)
[2022-03-02] MEDS ORDERED: NALOXONE HCL 0.4MG/ML VIAL IV PRN (21:30)
[2022-03-03] VITALS (9 sets, daily range): BP systolic 106–160; BP diastolic 59–102
[2022-03-03] MEDS: LORAZEPAM 2MG/ML CPJ IV PRN (05:41)
[2022-03-03] MEDS: BACLOFEN 10MG TABLET PO SCH ×3 (05:51→20:51)
[2022-03-03 06:23] LABS: BASOPHILS % 0.1 % (0.0-2.0); HEMATOCRIT. 33.4 % (42.0-52.0); HEMOGLOBIN. 10.9 g/dL (14.0-18.0); LYMPHOCYTES % 13.8 % (20.0-50.0); MEAN CORPUSCULAR HEMOGLOBIN 28.7 pg (28.0-32.0); MEAN CORPUSCULAR VOLUME 87.7 fL (80.0-94.0); NEUTROPHILS % 76.1 % (40.0-76.0); PLATELET 167 x1000/uL (130-400); RED BLOOD CELL COUNT 3.81 mill/uL (4.7-6.1); RED CELL DISTRIBUTION WIDTH 16.8 % (11.6-14.6)
[2022-03-03] MEDS: BLOOD SUGAR DIAGNOSTIC STRIP TEST SCH ×4 (07:40→20:51)
[2022-03-03 07:49] LABS: BG BASE EXCESS -2.3 mmol/L (-2.0-2.0); BG CARBOXYHEMOGLOBIN 0.4 % (0.5-1.5); BG DEOXYHEMOGLOBIN 4.9 % (0.0-5.0); BG FRACTION INSPIRED OXYGEN 21; BG HCO3 ACT 22.8 mmol/L (22.0-26.0); BG METHEMOGLOBIN 0.3 % (0.0-1.5); BG OXYGEN SATURATION 95.1 % (92.0-98.5); BG OXYHEMOGLOBIN 94.4 % (94.0-97.0); BG PCO2 40.3 mmHg (35.0-45.0); BG PO2 80.8 mmHg (75.0-100.0); BG SAMPLE SITE RIGHT RADIAL; BG TOTAL HEMOGLOBIN 12.2 g/dL (12.0-18.0); BG VENT MODE ROOM AIR
[2022-03-03] MEDS: LEVETIRACETAM 1,500 MG in SODIUM CHLORIDE 0.9% 100 ML IV SCH ×2 (08:22→20:47)
[2022-03-03] MEDS: TAMSULOSIN HCL 0.4MG SR CAPSULE PO SCH (08:34)
[2022-03-03] MEDS: CARVEDILOL 12.5MG TABLET PO SCH ×2 (08:34→20:50)
[2022-03-03] MEDS: SERTRALINE HCL 50MG TABLET PO SCH (08:35)
[2022-03-03] MEDS: AMLODIPINE 10MG TABLET PO SCH (08:35)
[2022-03-03] MEDS: GABAPENTIN 100MG CAPSULE PO SCH ×3 (08:38→16:33)
[2022-03-03] MEDS: INSULIN LISPRO 100 UNITS/ML SUBCUT SCH ×7 (09:02→20:50)
[2022-03-03] MEDS: FERROUS SULFATE 325MG TABLET PO SCH (13:43)
[2022-03-03 14:03] LABS: CREATINE KINASE 53 IU/L (39-308)
[2022-03-03] MEDS ORDERED: PHENYTOIN SODIUM 500 MG in SODIUM CHLORIDE 0.9% 50 ML IV ONE (15:30)
[2022-03-03] MEDS: RIVAROXABAN 20 MG TABLET PO SCH (17:21)
[2022-03-03] MEDS: INSULIN GLARGINE 100 UNITS/ML SUBCUT SCH (20:49)
[2022-03-03] MEDS: ATORVASTATIN CALCIUM 40MG TABLET PO SCH (20:52)
[2022-03-03] MEDS: CHLORTHALIDONE 25MG TABLET PO SCH (20:57)
[2022-03-03] MEDS: PHENYTOIN SODIUM 100MG/2ML VIAL IV SCH (21:17)
[2022-03-04] VITALS (11 sets, daily range): BP systolic 92–155; BP diastolic 53–94
[2022-03-04] MEDS ORDERED: LORAZEPAM 2MG/ML CPJ IV PRN (02:45)
[2022-03-04] MEDS: BACLOFEN 10MG TABLET PO SCH ×2 (05:13→13:51)
[2022-03-04] MEDS: PHENYTOIN SODIUM 100MG/2ML VIAL IV SCH ×2 (05:13→13:50)
[2022-03-04] MEDS ORDERED: LOPERAMIDE HCL 2MG CAPSULE PO NR (06:45)
[2022-03-04] MEDS ORDERED: LOPERAMIDE HCL 2MG CAPSULE PO PRN (06:45)
[2022-03-04 07:00] LABS: BASOPHILS % 0.1 % (0.0-2.0); HEMATOCRIT. 34.6 % (42.0-52.0); HEMOGLOBIN. 11.5 g/dL (14.0-18.0); LYMPHOCYTES % 19.9 % (20.0-50.0); MEAN CORPUSCULAR VOLUME 87.2 fL (80.0-94.0); MEAN PLATELET VOLUME 10.2 fl (7.4-10.4); MONOCYTES % 11.6 % (2.0-8.0); NEUTROPHILS % 66.4 % (40.0-76.0); PLATELET 167 x1000/uL (130-400); RED BLOOD CELL COUNT 3.96 mill/uL (4.7-6.1); RED CELL DISTRIBUTION WIDTH 16.4 % (11.6-14.6)
[2022-03-04] MEDS: BLOOD SUGAR DIAGNOSTIC STRIP TEST SCH ×3 (07:30→17:30)
[2022-03-04 07:58] LABS: PHOSPHORUS 3.5 mg/dL (2.5-4.9)
[2022-03-04] MEDS: INSULIN LISPRO 100 UNITS/ML SUBCUT SCH ×6 (08:00→18:00)
[2022-03-04 08:24] LABS: BG BASE EXCESS -1.6 mmol/L (-2.0-2.0); BG CARBOXYHEMOGLOBIN 0.6 % (0.5-1.5); BG DEOXYHEMOGLOBIN 2.9 % (0.0-5.0); BG FRACTION INSPIRED OXYGEN 21; BG HCO3 ACT 23.3 mmol/L (22.0-26.0); BG METHEMOGLOBIN 0.1 % (0.0-1.5); BG OXYGEN SATURATION 97.1 % (92.0-98.5); BG OXYHEMOGLOBIN 96.4 % (94.0-97.0); BG PCO2 40.1 mmHg (35.0-45.0); BG PH 7.382 (7.350-7.450); BG PO2 102.5 mmHg (75.0-100.0); BG SAMPLE SITE RIGHT RADIAL; BG TOTAL HEMOGLOBIN 11.9 g/dL (12.0-18.0); BG VENT MODE ROOM AIR
[2022-03-04] MEDS: GABAPENTIN 100MG CAPSULE PO SCH ×3 (08:34→17:00)
[2022-03-04] MEDS: AMLODIPINE 10MG TABLET PO SCH (08:34)
[2022-03-04] MEDS: CARVEDILOL 12.5MG TABLET PO SCH (08:34)
[2022-03-04] MEDS: FERROUS SULFATE 325MG TABLET PO SCH (08:34)
[2022-03-04] MEDS: TAMSULOSIN HCL 0.4MG SR CAPSULE PO SCH (08:35)
[2022-03-04] MEDS: SERTRALINE HCL 50MG TABLET PO SCH (08:35)
[2022-03-04] MEDS: LEVETIRACETAM 1,500 MG in SODIUM CHLORIDE 0.9% 100 ML IV SCH (08:36)
[2022-03-04] MEDS: SODIUM CHLORIDE 0.9% 1,000 ML IV SCH ×2 (11:12→17:45)
[2022-03-04] MEDS ORDERED: KEPP500 PO (14:08)
[2022-03-04] MEDS ORDERED: IMOD PO (14:08)
[2022-03-04] MEDS ORDERED: PHEN100C4 PO (14:08)
[2022-03-04] MEDS: RIVAROXABAN 20 MG TABLET PO SCH (17:00)
== END 2022-03-04 18:59 | disposition home or self-care (01) | DRG 192 ==
LOC: ER 11:54 → EDBEDREQ 14:24 → EDBEDREQTM 14:24 → 8WST 16:33 → SUPCPDRO 16:37 → EDBEDREQTM 16:39 → EDBEDREQSVC 16:39 → EDBEDREQ 16:39 → ENRESERV 17:47 → 5EST 03-01 10:09
PROVIDERS: ADMIT Internal Medicine; ATTEND Internal Medicine
PROC: 4A023N7 Measurement of Cardiac Sampling and Pressure, Left Heart, Percutaneous Approach (ICD-10-PCS; principal; 2022-02-28)
PROC: B211YZZ Fluoroscopy of Multiple Coronary Arteries using Other Contrast (ICD-10-PCS; 2022-02-28)
PROC: 4A10X4Z Monitoring of Central Nervous Electrical Activity, External Approach (ICD-10-PCS; 2022-03-01)
DX: M94.0 Chondrocostal junction syndrome [Tietze] (principal); N17.9 Acute kidney failure, unspecified; I69.354 Hemiplegia and hemiparesis following cerebral infarction affecting left non-dominant side; I25.110 Atherosclerotic heart disease of native coronary artery with unstable angina pectoris; I50.32 Chronic diastolic (congestive) heart failure; Z86.74 Personal history of sudden cardiac arrest; D50.9 Iron deficiency anemia, unspecified; I11.0 Hypertensive heart disease with heart failure; G40.909 Epilepsy, unspecified, not intractable, without status epilepticus; I48.91 Unspecified atrial fibrillation; E11.9 Type 2 diabetes mellitus without complications; E66.9 Obesity, unspecified; E78.00 Pure hypercholesterolemia, unspecified; E78.5 Hyperlipidemia, unspecified; R53.1 Weakness; H53.2 Diplopia; F41.9 Anxiety disorder, unspecified; N40.0 Benign prostatic hyperplasia without lower urinary tract symptoms; R42 Dizziness and giddiness; Z20.822 Contact with and (suspected) exposure to COVID-19; R51.9 Headache, unspecified; G47.30 Sleep apnea, unspecified; M19.90 Unspecified osteoarthritis, unspecified site; Z79.01 Long term (current) use of anticoagulants; Z79.82 Long term (current) use of aspirin; Z86.718 Personal history of other venous thrombosis and embolism; Z87.891 Personal history of nicotine dependence; Z79.4 Long term (current) use of insulin; I25.2 Old myocardial infarction; Z86.711 Personal history of pulmonary embolism; Z95.5 Presence of coronary angioplasty implant and graft; Z79.899 Other long term (current) drug therapy; Z68.33 Body mass index [BMI] 33.0-33.9, adult
CPT/HCPCS: 36415; 36600; 70551; 71045; 72141; 76770; 80048; 80053; 80061; 80165; 80184; 80305; 80320; 81003; 82375; 82550; 82607; 82728; 82746; 82805; 82962; 83036; 83540; 83550; 83605; 83735; 83880; 84100; 84484; 85025; 85347; 85384; 87426; 90686; 93005; 93306; 93458; 93880; 95816; 97162; 99291; C1769; C1887; C1893; J0360; J1165; J1200; J1644; J1650; J1815; J1885; J1953; J2060; J2250; J2405; J3010; J3490; J7030; J7050; Q9967; G0480

== ENCOUNTER 2022-09-20 14:22 | Emergency (ER) | payer MEDICAID ==
[~2022-09-20] VITALS: Ht 175.3 cm; Wt 99.0 kg
[~2022-09-20 14:22] MED LIST changes: +AMLO10TA80 MT; +ATOR-2 PO; -ATROPINE SULFATE 1MG/10ML SYR ONE; +BACL20TA PO; +CHLO25TA2 PO; +DICL100G31 TP; +DIVA-75 MT; -ETOMIDATE 2MG/ML 10ML VIAL IV ONE; +FERR325T6 PO; +GABA-529 PO; +IMOD PO; +INSU100I28 SQ; +INSU100V37 SQ; +KEPP500 PO; +OMEP20CA14 PO; +PHEN100C4 PO; +RIVA20TA PO; +SERT-422 PO; +SILV50CR31 TP; -SODIUM CHLORIDE 0.9% 10ML VIAL ONE; +TAMS-11 PO; +TRAZ-251 PO; -VECURONIUM BROMIDE 10 MG/VIAL IV ONE; +[UNRECOGNIZED DRUG - CODE] TP
[2022-09-20] MEDS ORDERED: ACETAMINOPHEN 325MG TABLET PO STA (15:57)
[2022-09-20] MEDS ORDERED: SODIUM CHLORIDE 0.9% 1,000 ML IV ONE (16:00)
[2022-09-20 16:49] LABS: BASOPHILS % 0.1 % (0.0-2.0); EOSINOPHILS % 1.5 % (0.0-5.0); HEMATOCRIT. 39.5 % (42.0-52.0); LYMPHOCYTES % 9.8 % (20.0-50.0); MEAN CORPUSCULAR HEMOGLOBIN 28.8 pg (28.0-32.0); MEAN CORPUSCULAR VOLUME 87.8 fL (80.0-94.0); MEAN PLATELET VOLUME 10.1 fl (7.4-10.4); MONOCYTES % 8.3 % (2.0-8.0); NEUTROPHILS % 80.3 % (40.0-76.0); PLATELET 168 x1000/uL (130-400); RED CELL DISTRIBUTION WIDTH 14.5 % (11.6-14.6)
[2022-09-20 16:53] LABS: CHLORIDE 105 mEq/L (98-107)
[2022-09-20 17:28] LABS: CLARITY URINE CLEAR (CLEAR); COLOR URINE YELLOW (YELLOW); KETONES URINE NEGATIVE (NEGATIVE); LEUKOCYTE ESTERASE URINE NEGATIVE (NEGATIVE); NITRITE URINE NEGATIVE (NEGATIVE); OCCULT BLOOD URINE 1+ (NEGATIVE); PROTEIN URINE 2+ (NEGATIVE); SPECIFIC GRAVITY URINE 1.016 (1.005-1.030); UROBILINOGEN URINE 0.2 E.U./dL (0.2-1.0)
[2022-09-20] MEDS ORDERED: BENZONATATE 200MG CAPSULE PO ONE (20:15)
[2022-09-20] MEDS ORDERED: TOPUD MT (21:29)
[2022-09-20] MEDS ORDERED: BENZ200C52 MT (21:29)
[2022-09-20 22:06] VITALS: BP 124/72
== END 2022-09-20 22:07 | disposition home or self-care (01) ==
LOC: ER 14:22
DX: J06.9 Acute upper respiratory infection, unspecified (principal); R50.9 Fever, unspecified; R05.9 Cough, unspecified; I48.91 Unspecified atrial fibrillation; D64.9 Anemia, unspecified; F41.9 Anxiety disorder, unspecified; E11.9 Type 2 diabetes mellitus without complications; E78.00 Pure hypercholesterolemia, unspecified; I10 Essential (primary) hypertension; Z20.822 Contact with and (suspected) exposure to COVID-19
CPT/HCPCS: 36415; 71045; 73630; 80053; 81003; 83605; 84484; 85025; 87040; 87086; 87426; 96360; 96361; 99285; C9803; J7030

== ENCOUNTER 2022-11-02 08:56 | Inpatient (IN) | payer MEDICAID ==
[~2022-11-02] VITALS: Ht 165.1 cm; Wt 101.6 kg
[~2022-11-02 08:56] MED LIST changes: +BENZ200C52 MT; +TOPUD MT
[2022-11-02 09:27] LABS: BASOPHILS % 0.3 % (0.0-2.0); EOSINOPHILS % 2.4 % (0.0-5.0); HEMATOCRIT. 32.7 % (42.0-52.0); HEMOGLOBIN. 10.5 g/dL (14.0-18.0); MEAN CORPUSCULAR HEMOGLOBIN 28.3 pg (28.0-32.0); MEAN CORPUSCULAR VOLUME 88.2 fL (80.0-94.0); MEAN PLATELET VOLUME 9.8 fl (7.4-10.4); NEUTROPHILS % 68.3 % (40.0-76.0); PLATELET 198 x1000/uL (130-400); RED CELL DISTRIBUTION WIDTH 15.1 % (11.6-14.6)
[2022-11-02 09:34] LABS: CHLORIDE 106 mEq/L (98-107)
[2022-11-02 09:43] LABS: ETHANOL BLOOD < 10 mg/dL
[2022-11-02] MEDS ORDERED: SODIUM CHLORIDE 0.9% 1,000 ML IV ONE (10:00)
[2022-11-02] MEDS ORDERED: INSULIN REGULAR (HUMULIN R) 300UNITS/3ML VIAL IV ONE (10:00)
[2022-11-02] MEDS ORDERED: LORAZEPAM 2MG/ML CPJ IV ONE (12:15)
[2022-11-02] MEDS ORDERED: PHENYTOIN SODIUM 1,000 MG in SODIUM CHLORIDE 0.9% 100 ML IV ONE (12:15)
[2022-11-02] MEDS ORDERED: LEVETIRACETAM 1000MG PREMIX 100 ML IV ONE (12:30)
[2022-11-02 15:00] VITALS: BP 143/76
[2022-11-02] MEDS ORDERED: MAGNESIUM/ALUMINUM HYDROXIDE/SIMETHICONE 30ML UDC PO PRN (16:00)
[2022-11-02] MEDS ORDERED: CLONIDINE 0.1MG TABLET PO PRN (16:00)
[2022-11-02] MEDS ORDERED: DIPHENHYDRAMINE 50MG/ML VIAL IV PRN (16:00)
[2022-11-02] MEDS ORDERED: ONDANSETRON HCL 4MG/2ML INJ IV PRN (16:00)
[2022-11-02] MEDS ORDERED: DEXTROSE 50% WATER 50ML SYRINGE IV PRN (16:00)
[2022-11-02] MEDS ORDERED: ACETAMINOPHEN 325MG TABLET PO PRN ×2 (16:00)
[2022-11-02] MEDS: BLOOD SUGAR DIAGNOSTIC STRIP TEST SCH ×2 (16:40→21:00)
[2022-11-02] MEDS: DIVALPROEX SODIUM 250MG ER TABLET PO SCH (17:00)
[2022-11-02] MEDS: APIXABAN 5 MG TABLET PO SCH (17:00)
[2022-11-02] MEDS: LORAZEPAM 2MG/ML CPJ IV PRN (18:16)
[2022-11-02] MEDS: PHENYTOIN SODIUM 300 MG in SODIUM CHLORIDE 0.9% 50 ML IV SCH (18:30)
[2022-11-02] MEDS: SODIUM CHLORIDE 0.9% 1,000 ML IV SCH (18:30)
[2022-11-02] MEDS: INSULIN LISPRO 100 UNITS/ML SUBCUT SCH ×2 (18:42→21:00)
[2022-11-02] MEDS ORDERED: LEVETIRACETAM 1,500 MG in SODIUM CHLORIDE 0.9% 100 ML IV SCH (19:30)
[2022-11-02 20:00] VITALS: BP 105/57
[2022-11-02] MEDS: CARVEDILOL 3.125 MG TABLET PO SCH (21:00)
[2022-11-02] MEDS ORDERED: LEVETIRACETAM 500MG TABLET PO SCH (21:00)
[2022-11-02] MEDS: ATORVASTATIN CALCIUM 40MG TABLET PO SCH (21:00)
[2022-11-02] MEDS ORDERED: PHENYTOIN SODIUM EXTENDED 100MG CAPSULE PO SCH (22:00)
[2022-11-02] MEDS: INSULIN GLARGINE 100 UNITS/ML SUBCUT SCH (22:00)
[2022-11-02] MEDS: SODIUM CHLORIDE 0.9% INJ 3ML FLUSH IVF SCH (22:30)
[2022-11-03] VITALS: BP 109/66
[2022-11-03] MEDS: LORAZEPAM 2MG/ML CPJ IV PRN ×2 (01:05→19:32)
[2022-11-03] MEDS: SODIUM CHLORIDE 0.9% 1,000 ML IV SCH ×4 (03:37→23:15)
[2022-11-03 04:00] VITALS: BP 105/55
[2022-11-03] MEDS: INSULIN LISPRO 100 UNITS/ML SUBCUT SCH ×4 (05:53→21:00)
[2022-11-03] MEDS: BLOOD SUGAR DIAGNOSTIC STRIP TEST SCH ×4 (05:53→21:07)
[2022-11-03] MEDS: PHENYTOIN SODIUM 300 MG in SODIUM CHLORIDE 0.9% 50 ML IV SCH ×2 (05:54→17:54)
[2022-11-03] MEDS: SODIUM CHLORIDE 0.9% INJ 3ML FLUSH IVF SCH ×3 (05:54→21:07)
[2022-11-03 08:00] VITALS: BP 143/72
[2022-11-03] MEDS: TAMSULOSIN HCL 0.4MG SR CAPSULE PO SCH ×2 (09:00→17:15)
[2022-11-03] MEDS: CARVEDILOL 3.125 MG TABLET PO SCH ×3 (09:00→21:07)
[2022-11-03] MEDS: APIXABAN 5 MG TABLET PO SCH ×3 (09:00→17:13)
[2022-11-03] MEDS: DIVALPROEX SODIUM 250MG ER TABLET PO SCH ×3 (09:00→17:13)
[2022-11-03] MEDS: INSULIN GLARGINE 100 UNITS/ML SUBCUT SCH ×2 (09:20→21:08)
[2022-11-03] MEDS: LEVETIRACETAM 1,500 MG in SODIUM CHLORIDE 0.9% 100 ML IV SCH ×2 (10:18→21:07)
[2022-11-03] MEDS ORDERED: LIDOCAINE HCL/PF 1% 10 MG/ML 5ML VIAL ONE (11:14)
[2022-11-03 12:00] VITALS: BP 150/89
[2022-11-03 17:14] LABS: CLARITY URINE CLEAR (CLEAR); COLOR URINE YELLOW (YELLOW); KETONES URINE NEGATIVE (NEGATIVE); LEUKOCYTE ESTERASE URINE NEGATIVE (NEGATIVE); NITRITE URINE NEGATIVE (NEGATIVE); OCCULT BLOOD URINE NEGATIVE (NEGATIVE); PH URINE 6.5 (4.5-8.0); PROTEIN URINE 2+ (NEGATIVE); SPECIFIC GRAVITY URINE 1.014 (1.005-1.030); UROBILINOGEN URINE 0.2 E.U./dL (0.2-1.0)
[2022-11-03 17:28] LABS: *AMPHETAMINES SCREEN URINE NEGATIVE (NEGATIVE); *BARBITURATES SCREEN URINE NEGATIVE (NEGATIVE); *BENZODIAZEPINES SCREEN URINE PRESUMTIVE POSITIVE (NEGATIVE); *COCAINE SCREEN URINE NEGATIVE (NEGATIVE); CANNABINOID URINE SCREEN NEGATIVE (NEGATIVE); METHADONE URINE SCREEN NEGATIVE (NEGATIVE); OPIATES URINE SCREEN NEGATIVE (NEGATIVE); PHENCYCLIDINE URINE SCREEN NEGATIVE (NEGATIVE)
[2022-11-03 20:00] VITALS: BP 133/70
[2022-11-03] MEDS: ATORVASTATIN CALCIUM 40MG TABLET PO SCH (21:07)
[2022-11-04] VITALS: BP 136/77
[2022-11-04 04:00] VITALS: BP 116/53
[2022-11-04] MEDS: SODIUM CHLORIDE 0.9% INJ 3ML FLUSH IVF SCH ×2 (04:56→13:31)
[2022-11-04] MEDS: PHENYTOIN SODIUM 300 MG in SODIUM CHLORIDE 0.9% 50 ML IV SCH (04:56)
[2022-11-04] MEDS: BLOOD SUGAR DIAGNOSTIC STRIP TEST SCH ×3 (05:46→17:10)
[2022-11-04] MEDS: INSULIN LISPRO 100 UNITS/ML SUBCUT SCH ×3 (05:46→17:10)
[2022-11-04 08:00] VITALS: BP 148/86
[2022-11-04] MEDS: TAMSULOSIN HCL 0.4MG SR CAPSULE PO SCH (08:35)
[2022-11-04] MEDS: APIXABAN 5 MG TABLET PO SCH ×2 (08:35→17:11)
[2022-11-04] MEDS: CARVEDILOL 3.125 MG TABLET PO SCH (08:36)
[2022-11-04] MEDS: DIVALPROEX SODIUM 250MG ER TABLET PO SCH ×2 (08:36→17:12)
[2022-11-04] MEDS: INSULIN GLARGINE 100 UNITS/ML SUBCUT SCH (08:46)
[2022-11-04] MEDS: LEVETIRACETAM 1,500 MG in SODIUM CHLORIDE 0.9% 100 ML IV SCH (09:00)
[2022-11-04] MEDS ORDERED: PHENYTOIN SODIUM 500 MG in SODIUM CHLORIDE 0.9% 50 ML IV NR (11:30)
[2022-11-04 12:00] VITALS: BP 154/91
[2022-11-04] MEDS: SODIUM CHLORIDE 0.9% 1,000 ML IV SCH (13:31)
[2022-11-04 16:00] VITALS: BP 141/83
[2022-11-20] MEDS ORDERED: VALP500V2 IV (13:42)
== END 2022-11-04 18:40 | disposition home or self-care (01) | DRG 53 ==
LOC: ER 08:56 → MICUSO 10:54 → 7EST 14:35
PROVIDERS: ADMIT Internal Medicine; ATTEND Internal Medicine
PROC: 02HV33Z Insertion of Infusion Device into Superior Vena Cava, Percutaneous Approach (ICD-10-PCS; principal; 2022-11-03)
PROC: B548ZZA Ultrasonography of Superior Vena Cava, Guidance (ICD-10-PCS; 2022-11-03)
DX: G40.901 Epilepsy, unspecified, not intractable, with status epilepticus (principal); E44.0 Moderate protein-calorie malnutrition; E11.65 Type 2 diabetes mellitus with hyperglycemia; E78.00 Pure hypercholesterolemia, unspecified; I48.91 Unspecified atrial fibrillation; I10 Essential (primary) hypertension; E78.5 Hyperlipidemia, unspecified; I25.10 Atherosclerotic heart disease of native coronary artery without angina pectoris; N40.0 Benign prostatic hyperplasia without lower urinary tract symptoms; M19.90 Unspecified osteoarthritis, unspecified site; I25.2 Old myocardial infarction; Z86.73 Personal history of transient ischemic attack (TIA), and cerebral infarction without residual deficits; Z95.1 Presence of aortocoronary bypass graft; Z82.49 Family history of ischemic heart disease and other diseases of the circulatory system
CPT/HCPCS: 36415; 36573; 71045; 80053; 80185; 80305; 80320; 81003; 82010; 82962; 83036; 85025; 93005; 99285; C1725; C1892; C1893; J1165; J1815; J1953; J2060; J3490; J7030; J7050; G0480

== ENCOUNTER 2022-12-26 16:13 | Inpatient (IN) | payer MEDICAID ==
[~2022-12-26] VITALS: Ht 177.8 cm; Wt 103.9 kg
[~2022-12-26 16:13] MED LIST changes: +VALP500V2 IV
[2022-12-26] MEDS ORDERED: MORPHINE SULFATE 4 MG/ML CPJ (NOT FOR IM USE) IV ONE (17:15)
[2022-12-26] MEDS ORDERED: ONDANSETRON HCL 4MG/2ML INJ IM ONE (17:15)
[2022-12-26 17:21] LABS: CHLORIDE 106 mEq/L (98-107)
[2022-12-26 17:25] LABS: BASOPHILS % 0.3 % (0.0-2.0); EOSINOPHILS % 1.5 % (0.0-5.0); HEMATOCRIT. 36.3 % (42.0-52.0); HEMOGLOBIN. 11.9 g/dL (14.0-18.0); LYMPHOCYTES % 23.4 % (20.0-50.0); MEAN CORPUSCULAR HEMOGLOBIN 28.5 pg (28.0-32.0); MEAN CORPUSCULAR VOLUME 86.9 fL (80.0-94.0); MEAN PLATELET VOLUME 9.6 fl (7.4-10.4); MONOCYTES % 9.1 % (2.0-8.0); NEUTROPHILS % 65.7 % (40.0-76.0); PLATELET 192 x1000/uL (130-400); RED BLOOD CELL COUNT 4.17 mill/uL (4.7-6.1)
[2022-12-26] MEDS ORDERED: MORPHINE SULFATE 4 MG/ML CPJ (NOT FOR IM USE) IV NR (19:15)
[2022-12-26] MEDS ORDERED: CLONIDINE 0.1MG TABLET PO PRN (21:30)
[2022-12-26] MEDS ORDERED: ACETAMINOPHEN 325MG TABLET PO PRN ×2 (21:30)
[2022-12-26] MEDS ORDERED: LORAZEPAM 2MG/ML CPJ IV PRN (21:30)
[2022-12-26] MEDS ORDERED: ONDANSETRON HCL 4MG/2ML INJ IV PRN (21:30)
[2022-12-26] MEDS ORDERED: DEXTROSE 50% WATER 50ML SYRINGE IV PRN (21:45)
[2022-12-26] MEDS ORDERED: FUROSEMIDE 40MG/4ML VIAL IVP SCH (21:45)
[2022-12-26] MEDS: LEVETIRACETAM 500MG TABLET PO SCH (22:39)
[2022-12-26] MEDS: GABAPENTIN 300MG CAPSULE PO SCH (22:39)
[2022-12-26] MEDS ORDERED: NITROGLYCERIN 0.4MG TABLET SL SL PRN (23:15)
[2022-12-26] MEDS: INSULIN GLARGINE 100 UNITS/ML SUBCUT SCH (23:15)
[2022-12-26] MEDS ORDERED: SODIUM POLYSTYRENE SULFONATE 15 G/60 ML BOT PO NR (23:15)
[2022-12-27] VITALS (7 sets, daily range): BP systolic 122–146; BP diastolic 59–91
[2022-12-27] MEDS: GABAPENTIN 300MG CAPSULE PO SCH ×3 (06:33→21:34)
[2022-12-27] MEDS: LEVETIRACETAM 500MG TABLET PO SCH ×3 (06:33→21:34)
[2022-12-27] MEDS: BLOOD SUGAR DIAGNOSTIC STRIP TEST SCH ×4 (06:35→21:36)
[2022-12-27] MEDS: INSULIN LISPRO 100 UNITS/ML SUBCUT SCH ×7 (06:50→21:36)
[2022-12-27] MEDS: IPRATROPIUM/ALBUTEROL 0.5-3(2.5)MG/3ML NEB HHN SCH ×4 (08:11→21:09)
[2022-12-27] MEDS: DIVALPROEX SODIUM 500MG DR TABLET PO SCH ×3 (09:00→18:16)
[2022-12-27] MEDS ORDERED: ENOXAPARIN 30MG/0.3ML SYR SUBCUT SCH (09:00)
[2022-12-27] MEDS ORDERED: AZITHROMYCIN 250 MG in DEXT 5% WATER 250 ML IV SCH (09:00)
[2022-12-27] MEDS: TAMSULOSIN HCL 0.4MG SR CAPSULE PO SCH (09:35)
[2022-12-27] MEDS: SERTRALINE HCL 25MG TABLET PO SCH (09:36)
[2022-12-27] MEDS: APIXABAN 5 MG TABLET PO SCH ×2 (09:36→18:17)
[2022-12-27] MEDS: AMLODIPINE 10MG TABLET PO SCH (09:37)
[2022-12-27] MEDS: PHENYTOIN SODIUM EXTENDED 100MG CAPSULE PO SCH (09:42)
[2022-12-27] MEDS ORDERED: SODIUM POLYSTYRENE SULFONATE 15 G/60 ML BOT PO NR (12:00)
[2022-12-27] MEDS: AZITHROMYCIN 250 MG in DEXT 5% WATER 250 ML IV SCH (12:21)
[2022-12-27 18:51] LABS: BASOPHILS % 0.2 % (0.0-2.0); EOSINOPHILS % 1.5 % (0.0-5.0); HEMATOCRIT. 36.7 % (42.0-52.0); HEMOGLOBIN. 12.1 g/dL (14.0-18.0); LYMPHOCYTES % 21.8 % (20.0-50.0); MEAN CORPUSCULAR HEMOGLOBIN 28.2 pg (28.0-32.0); MEAN PLATELET VOLUME 9.5 fl (7.4-10.4); MONOCYTES % 11.1 % (2.0-8.0); NEUTROPHILS % 65.4 % (40.0-76.0); PLATELET 214 x1000/uL (130-400); RED BLOOD CELL COUNT 4.27 mill/uL (4.7-6.1); RED CELL DISTRIBUTION WIDTH 15.2 % (11.6-14.6)
[2022-12-27 19:02] LABS: CHLORIDE 106 mEq/L (98-107)
[2022-12-27] MEDS: ATORVASTATIN CALCIUM 10MG TABLET PO SCH (20:46)
[2022-12-27] MEDS: INSULIN GLARGINE 100 UNITS/ML SUBCUT SCH (21:35)
[2022-12-28] VITALS: BP 127/78
[2022-12-28] MEDS: IPRATROPIUM/ALBUTEROL 0.5-3(2.5)MG/3ML NEB HHN SCH ×6 (00:41→20:23)
[2022-12-28 04:00] VITALS: BP 125/78
[2022-12-28] MEDS: GABAPENTIN 300MG CAPSULE PO SCH ×3 (06:49→21:16)
[2022-12-28] MEDS: LEVETIRACETAM 500MG TABLET PO SCH ×3 (06:49→21:16)
[2022-12-28] MEDS: BLOOD SUGAR DIAGNOSTIC STRIP TEST SCH ×4 (06:51→21:23)
[2022-12-28 07:46] VITALS: BP 136/80
[2022-12-28 08:03] LABS: BASOPHILS % 0.2 % (0.0-2.0); EOSINOPHILS % 2.1 % (0.0-5.0); HEMATOCRIT. 36.4 % (42.0-52.0); HEMOGLOBIN. 11.8 g/dL (14.0-18.0); LYMPHOCYTES % 23.6 % (20.0-50.0); MEAN CORPUSCULAR HEMOGLOBIN 28.1 pg (28.0-32.0); MEAN CORPUSCULAR VOLUME 86.6 fL (80.0-94.0); MEAN PLATELET VOLUME 9.6 fl (7.4-10.4); MONOCYTES % 9.7 % (2.0-8.0); NEUTROPHILS % 64.4 % (40.0-76.0); PLATELET 200 x1000/uL (130-400); RED BLOOD CELL COUNT 4.21 mill/uL (4.7-6.1); RED CELL DISTRIBUTION WIDTH 15.2 % (11.6-14.6)
[2022-12-28] MEDS: AMLODIPINE 10MG TABLET PO SCH (08:18)
[2022-12-28] MEDS: DIVALPROEX SODIUM 500MG DR TABLET PO SCH ×3 (08:18→16:56)
[2022-12-28] MEDS: APIXABAN 5 MG TABLET PO SCH ×2 (08:18→16:56)
[2022-12-28] MEDS: PHENYTOIN SODIUM EXTENDED 100MG CAPSULE PO SCH (08:18)
[2022-12-28] MEDS: SERTRALINE HCL 25MG TABLET PO SCH (08:18)
[2022-12-28] MEDS: TAMSULOSIN HCL 0.4MG SR CAPSULE PO SCH (08:18)
[2022-12-28] MEDS: INSULIN LISPRO 100 UNITS/ML SUBCUT SCH ×7 (08:20→21:23)
[2022-12-28] MEDS: AZITHROMYCIN 250 MG in DEXT 5% WATER 250 ML IV SCH (10:29)
[2022-12-28 11:33] VITALS: BP 115/77
[2022-12-28] MEDS ORDERED: INSULIN GLARGINE 100 UNITS/ML SUBCUT SCH (12:00)
[2022-12-28 16:00] VITALS: BP 122/62
[2022-12-28 20:00] VITALS: BP 127/85
[2022-12-28] MEDS: IPRATROPIUM BROMIDE (0.02%) 0.5MG/2.5ML NEB HHN SCH (20:34)
[2022-12-28] MEDS: ALBUTEROL (0.083%) 2.5MG/3ML NEB HHN SCH (20:35)
[2022-12-28] MEDS: ATORVASTATIN CALCIUM 10MG TABLET PO SCH (21:16)
[2022-12-28] MEDS: INSULIN GLARGINE 100 UNITS/ML SUBCUT SCH (21:18)
[2022-12-29] VITALS: BP 130/86
[2022-12-29] MEDS: ALBUTEROL (0.083%) 2.5MG/3ML NEB HHN SCH ×3 (01:53→10:00)
[2022-12-29] MEDS: IPRATROPIUM BROMIDE (0.02%) 0.5MG/2.5ML NEB HHN SCH ×3 (01:53→10:01)
[2022-12-29 04:00] VITALS: BP 130/72
[2022-12-29] MEDS: GABAPENTIN 300MG CAPSULE PO SCH ×2 (06:21→13:18)
[2022-12-29] MEDS: LEVETIRACETAM 500MG TABLET PO SCH ×2 (06:21→13:18)
[2022-12-29] MEDS: BLOOD SUGAR DIAGNOSTIC STRIP TEST SCH ×2 (06:21→11:10)
[2022-12-29 08:00] VITALS: BP 155/87
[2022-12-29] MEDS: INSULIN LISPRO 100 UNITS/ML SUBCUT SCH ×4 (08:02→11:20)
[2022-12-29] MEDS: PHENYTOIN SODIUM EXTENDED 100MG CAPSULE PO SCH (08:03)
[2022-12-29] MEDS: APIXABAN 5 MG TABLET PO SCH (08:04)
[2022-12-29] MEDS: AMLODIPINE 10MG TABLET PO SCH (08:04)
[2022-12-29] MEDS: DIVALPROEX SODIUM 500MG DR TABLET PO SCH ×2 (08:04→13:18)
[2022-12-29] MEDS: TAMSULOSIN HCL 0.4MG SR CAPSULE PO SCH (08:04)
[2022-12-29] MEDS: SERTRALINE HCL 25MG TABLET PO SCH (08:04)
[2022-12-29] MEDS ORDERED: AZITHROMYCIN 250 MG TABLET PO SCH (09:00)
[2022-12-29] MEDS ORDERED: INSULIN GLARGINE 100 UNITS/ML SUBCUT SCH (10:00)
[2022-12-29 12:00] VITALS: BP 111/72
[2022-12-29 12:33] VITALS: BP 111/72
== END 2022-12-29 14:50 | disposition home or self-care (01) | DRG 364 ==
LOC: ER 16:13 → 3WST 21:56 → EDBEDREQTM 22:05 → EDBEDREQ 22:05
PROVIDERS: ADMIT Hospitalist; ATTEND Hospitalist
PROC: 0LBW0ZZ Excision of Left Foot Tendon, Open Approach (ICD-10-PCS; principal; 2022-12-28)
PROC: 05HY33Z Insertion of Infusion Device into Upper Vein, Percutaneous Approach (ICD-10-PCS; 2022-12-28)
PROC: B54MZZA Ultrasonography of Right Upper Extremity Veins, Guidance (ICD-10-PCS; 2022-12-28)
DX: E11.621 Type 2 diabetes mellitus with foot ulcer (principal); L97.529 Non-pressure chronic ulcer of other part of left foot with unspecified severity; N17.0 Acute kidney failure with tubular necrosis; E44.0 Moderate protein-calorie malnutrition; G40.901 Epilepsy, unspecified, not intractable, with status epilepticus; I50.33 Acute on chronic diastolic (congestive) heart failure; I25.110 Atherosclerotic heart disease of native coronary artery with unstable angina pectoris; I48.0 Paroxysmal atrial fibrillation; E11.65 Type 2 diabetes mellitus with hyperglycemia; J44.1 Chronic obstructive pulmonary disease with (acute) exacerbation; I13.0 Hypertensive heart and chronic kidney disease with heart failure and stage 1 through stage 4 chronic kidney disease, or unspecified chronic kidney disease; E11.42 Type 2 diabetes mellitus with diabetic polyneuropathy; E11.22 Type 2 diabetes mellitus with diabetic chronic kidney disease; N18.30 Chronic kidney disease, stage 3 unspecified; E78.00 Pure hypercholesterolemia, unspecified; E78.1 Pure hyperglyceridemia; S90.512A Abrasion, left ankle, initial encounter; F41.9 Anxiety disorder, unspecified; M19.90 Unspecified osteoarthritis, unspecified site; N40.0 Benign prostatic hyperplasia without lower urinary tract symptoms; E87.5 Hyperkalemia; Z68.32 Body mass index [BMI] 32.0-32.9, adult; Z86.73 Personal history of transient ischemic attack (TIA), and cerebral infarction without residual deficits; Z79.01 Long term (current) use of anticoagulants; Z79.4 Long term (current) use of insulin; Z79.899 Other long term (current) drug therapy; Z86.711 Personal history of pulmonary embolism; Z86.718 Personal history of other venous thrombosis and embolism; Z86.79 Personal history of other diseases of the circulatory system; Z87.891 Personal history of nicotine dependence; Z95.1 Presence of aortocoronary bypass graft; X58.XXXA Exposure to other specified factors, initial encounter; Y93.89 Activity, other specified; Y92.89 Other specified places as the place of occurrence of the external cause; Y99.8 Other external cause status
CPT/HCPCS: 36415; 36573; 71045; 80048; 80053; 80061; 82962; 83036; 83880; 84484; 85025; 85379; 86803; 93005; 93306; 93970; 94640; 99285; C1725; J0456; J1815; J1940; J2270; J2405; J7060

== ENCOUNTER 2023-02-11 05:05 | Emergency (ER) | payer MEDICAID ==
[~2023-02-11] VITALS: Ht 177.8 cm; Wt 143.0 kg
[~2023-02-11 05:05] MED LIST changes: -[UNRECOGNIZED DRUG - CODE] TP
[2023-02-11] MEDS ORDERED: LORAZEPAM 2MG/ML CPJ IV ONE (05:30)
[2023-02-11] MEDS ORDERED: SODIUM CHLORIDE 0.9% 1,000 ML IV ONE (05:30)
[2023-02-11 06:05] LABS: BASOPHILS % 0.2 % (0.0-2.0); EOSINOPHILS % 1.9 % (0.0-5.0); HEMATOCRIT. 35.8 % (42.0-52.0); HEMOGLOBIN. 11.8 g/dL (14.0-18.0); LYMPHOCYTES % 20.8 % (20.0-50.0); MEAN CORPUSCULAR HEMOGLOBIN 28.1 pg (28.0-32.0); MEAN CORPUSCULAR VOLUME 85.4 fL (80.0-94.0); MEAN PLATELET VOLUME 9.1 fl (7.4-10.4); MONOCYTES % 10.2 % (2.0-8.0); NEUTROPHILS % 66.9 % (40.0-76.0); PLATELET 241 x1000/uL (130-400); RED CELL DISTRIBUTION WIDTH 15.4 % (11.6-14.6)
[2023-02-11 06:12] LABS: CHLORIDE 102 mEq/L (98-107)
[2023-02-11 06:22] LABS: BETA HYDROXYBUTYRATE 0.1 mMol/L (0.0-0.3); ETHANOL BLOOD < 10 mg/dL
[2023-02-11 06:56] LABS: CLARITY URINE CLEAR (CLEAR); COLOR URINE YELLOW (YELLOW); KETONES URINE NEGATIVE (NEGATIVE); LEUKOCYTE ESTERASE URINE NEGATIVE (NEGATIVE); NITRITE URINE NEGATIVE (NEGATIVE); OCCULT BLOOD URINE NEGATIVE (NEGATIVE); PROTEIN URINE 1+ (NEGATIVE); SPECIFIC GRAVITY URINE 1.014 (1.005-1.030); UROBILINOGEN URINE 0.2 E.U./dL (0.2-1.0)
[2023-02-11 08:32] LABS: *AMPHETAMINES SCREEN URINE NEGATIVE (NEGATIVE); *BARBITURATES SCREEN URINE NEGATIVE (NEGATIVE); *BENZODIAZEPINES SCREEN URINE NEGATIVE (NEGATIVE); *COCAINE SCREEN URINE NEGATIVE (NEGATIVE); CANNABINOID URINE SCREEN NEGATIVE (NEGATIVE); METHADONE URINE SCREEN NEGATIVE (NEGATIVE); OPIATES URINE SCREEN NEGATIVE (NEGATIVE); PHENCYCLIDINE URINE SCREEN NEGATIVE (NEGATIVE)
[2023-02-11] MEDS ORDERED: VALPROIC ACID 250MG CAPSULE PO NR (11:30)
[2023-02-11] MEDS ORDERED: LEVETIRACETAM 500MG TABLET PO NR (11:30)
[2023-02-11] MEDS ORDERED: PHENYTOIN SODIUM EXTENDED 100MG CAPSULE PO NR (11:30)
[2023-02-11 12:24] VITALS: BP 132/78
== END 2023-02-11 12:27 | disposition home or self-care (01) ==
LOC: ER 05:05
DX: R56.9 Unspecified convulsions (principal); I25.2 Old myocardial infarction; I10 Essential (primary) hypertension; E11.9 Type 2 diabetes mellitus without complications; J44.1 Chronic obstructive pulmonary disease with (acute) exacerbation; Z91.14 Patient's other noncompliance with medication regimen; Z79.899 Other long term (current) drug therapy; Z98.890 Other specified postprocedural states; Z86.73 Personal history of transient ischemic attack (TIA), and cerebral infarction without residual deficits
CPT/HCPCS: 36415; 70450; 80053; 80165; 80185; 80305; 80307; 80320; 80329; 81003; 82010; 82140; 82962; 83605; 83735; 84484; 85025; 93005; 96361; 96374; 99291; J2060; J7030; G0480

== ENCOUNTER 2023-04-14 12:39 | Emergency (ER) | payer MEDICAID ==
[~2023-04-14] VITALS: Ht 182.9 cm; Wt 91.0 kg
[~2023-04-14 12:39] MED LIST changes: +CARB-31 MT; -DIVA-75 MT; +EMPA25TA MT; +INSLIS SUBCUT; -INSU100V37 SQ; +KEPP250 MT; -KEPP500 PO; +LAM25 PO; -PHEN100C4 PO; +SERT25TA74 PO; -VALP500V2 IV
[2023-04-14] MEDS ORDERED: SODIUM CHLORIDE 0.9% 1,000 ML IV ONE (13:00)
[2023-04-14 14:02] LABS: BASOPHILS % 0.1 % (0.0-2.0); EOSINOPHILS % 1.9 % (0.0-5.0); HEMATOCRIT. 36.2 % (42.0-52.0); HEMOGLOBIN. 11.6 g/dL (14.0-18.0); LYMPHOCYTES % 12.9 % (20.0-50.0); MEAN CORPUSCULAR VOLUME 87.1 fL (80.0-94.0); MEAN PLATELET VOLUME 9.1 fl (7.4-10.4); NEUTROPHILS % 74.1 % (40.0-76.0); PLATELET 239 x1000/uL (130-400); RED BLOOD CELL COUNT 4.15 mill/uL (4.7-6.1); RED CELL DISTRIBUTION WIDTH 16.7 % (11.6-14.6)
[2023-04-14 14:12] LABS: CHLORIDE 93 mEq/L (98-107)
[2023-04-14 14:23] LABS: BG BASE EXCESS 2.9 mmol/L (-2.0-2.0); BG CARBOXYHEMOGLOBIN 0.3 % (0.5-1.5); BG DEOXYHEMOGLOBIN 0.6 % (0.0-5.0); BG FRACTION INSPIRED OXYGEN 100; BG HCO3 ACT 28.8 mmol/L (22.0-26.0); BG OXYGEN SATURATION 99.4 % (92.0-98.5); BG OXYHEMOGLOBIN 99.1 % (94.0-97.0); BG PCO2 49.3 mmHg (35.0-45.0); BG PH 7.384 (7.350-7.450); BG SAMPLE SITE LEFT RADIAL; BG TOTAL HEMOGLOBIN 13.3 g/dL (12.0-18.0); BG VENT MODE MASK - NRB
[2023-04-14 14:29] LABS: BETA HYDROXYBUTYRATE 0.1 mMol/L (0.0-0.3); ETHANOL BLOOD < 10 mg/dL (-10)
[2023-04-14 14:45] LABS: CLARITY URINE CLEAR (CLEAR); COLOR URINE YELLOW (YELLOW); KETONES URINE NEGATIVE (NEGATIVE); LEUKOCYTE ESTERASE URINE NEGATIVE (NEGATIVE); NITRITE URINE POSITIVE (NEGATIVE); OCCULT BLOOD URINE NEGATIVE (NEGATIVE); PROTEIN URINE NEGATIVE (NEGATIVE); SPECIFIC GRAVITY URINE 1.021 (1.005-1.030); UROBILINOGEN URINE 0.2 E.U./dL (0.2-1.0)
[2023-04-14] MEDS ORDERED: INSULIN REGULAR (HUMULIN R) 300UNITS/3ML VIAL SUBCUT ONE (14:45)
[2023-04-14 15:02] LABS: *AMPHETAMINES SCREEN URINE NEGATIVE (NEGATIVE); *BARBITURATES SCREEN URINE NEGATIVE (NEGATIVE); *BENZODIAZEPINES SCREEN URINE PRESUMTIVE POSITIVE (NEGATIVE); *COCAINE SCREEN URINE NEGATIVE (NEGATIVE); CANNABINOID URINE SCREEN NEGATIVE (NEGATIVE); METHADONE URINE SCREEN NEGATIVE (NEGATIVE); OPIATES URINE SCREEN NEGATIVE (NEGATIVE); PHENCYCLIDINE URINE SCREEN NEGATIVE (NEGATIVE)
[2023-04-14] MEDS ORDERED: CEFTRIAXONE 1GM PREMIX 50 ML IV ONE (16:15)
[2023-04-14] MEDS ORDERED: LEVETIRACETAM 500MG PREMIX 100 ML IV ONE (16:15)
[2023-04-14] MEDS ORDERED: CEPH500C2 MT (19:01)
[2023-04-14 19:21] VITALS: BP 127/75
== END 2023-04-14 19:21 | disposition home or self-care (01) ==
LOC: ER 12:39
DX: J96.90 Respiratory failure, unspecified, unspecified whether with hypoxia or hypercapnia (principal); E11.65 Type 2 diabetes mellitus with hyperglycemia; G40.909 Epilepsy, unspecified, not intractable, without status epilepticus; R41.82 Altered mental status, unspecified; I48.91 Unspecified atrial fibrillation; F41.9 Anxiety disorder, unspecified; I25.2 Old myocardial infarction; Z79.4 Long term (current) use of insulin
CPT/HCPCS: 36415; 36600; 70450; 71045; 80053; 80305; 80320; 81003; 82010; 82375; 82805; 82962; 83605; 84484; 85025; 87040; 93005; 96361; 96365; 96368; 96372; 99291; J0696; J1815; J1953; J7030; 96367; G0480

== ENCOUNTER 2023-06-07 07:46 | Emergency (ER) | payer MEDICAID ==
[~2023-06-07] VITALS: Ht 177.8 cm; Wt 100.0 kg
[~2023-06-07 07:46] MED LIST changes: -AMLO10TA80 MT; +APIX5TAB PO; -KEPP250 MT; -RIVA20TA PO; -SERT25TA74 PO
[2023-06-07 07:49] VITALS: BP 158/94; PULSE 76; RESP 16; TEMP 98.3; O2SAT 96
[2023-06-07 08:31] LABS: BASOPHILS % 0.3 % (0.0-2.0); DIFFERENTIAL COMMENT 0; EOSINOPHILS % 2.9 % (0.0-5.0); HEMATOCRIT. 40.7 % (42.0-52.0); HEMOGLOBIN. 12.9 g/dL (14.0-18.0); LYMPHOCYTES % 16.8 % (20.0-50.0); MEAN CORPUSCULAR HEMOGLOBIN 25.1 pg (28.0-32.0); MEAN CORPUSCULAR HGB CONC 31.7 g/dL (31.0-37.0); MEAN CORPUSCULAR VOLUME 79.3 fL (80.0-94.0); MEAN PLATELET VOLUME 8.7 fl (7.4-10.4); MONOCYTES % 7.1 % (2.0-8.0); NEUTROPHILS % 72.9 % (40.0-76.0); PLATELET 287 x1000/uL (130-400); RED BLOOD CELL COUNT 5.13 mill/uL (4.7-6.1); RED CELL DISTRIBUTION WIDTH 17.3 % (11.6-14.6); WHITE BLOOD COUNT 7.8 x1000/uL (4.5-11.0)
[2023-06-07 08:38] LABS: CHLORIDE 102 mEq/L (98-107); INDEX HEMOLYSI 1 (1-3); INDEX ICTERIC 1 (1-4); INDEX LIPEMIC 1 (1-3); SODIUM 133 mEq/L (136-145)
[2023-06-07 08:40] LABS: PROTHROMBIN TIME 10.9 sec (9.6-11.0)
[2023-06-07 08:48] LABS: ALANINE AMINOTRANSFERASE 33 IU/L (13-61); ALBUMIN 3.4 g/dL (3.4-5.0); ASPARTATE AMINOTRANSFERASE 21 IU/L (15-37); BILIRUBIN TOTAL 0.3 mg/dL (0.1-1.0); CALCIUM 9.3 mg/dL (8.5-10.1); CARBON DIOXIDE 25 mEq/L (21-32); CREATININE 1.5 mg/dL (0.6-1.3); GLUCOSE 273 mg/dL (70-105); PROTEIN TOTAL 9.1 g/dL (6.0-8.3); TROPONIN I HIGH SENSITIVITY 7 ng/L (<78); UREA NITROGEN BLOOD 33 mg/dL (7-21)
== END 2023-06-07 11:41 | disposition left against medical advice (07) ==
LOC: ER 07:57
DX: R42 Dizziness and giddiness (principal); K76.82 Hepatic encephalopathy
CPT/HCPCS: 36415; 80053; 84484; 85025; 93005; 99281

== ENCOUNTER 2023-06-13 13:35 | Inpatient (IN) | payer MEDICAID ==
[~2023-06-13] VITALS: Ht 172.7 cm; Wt 102.5 kg
[2023-06-13] MEDS ORDERED: ALBUTEROL (0.083%) 2.5MG/3ML NEB HHN STA ×2 (14:10→18:12)
[2023-06-13] MEDS ORDERED: METHYLPREDNISOLONE SOD SUCC 125MG/2ML (ACT-O-VIAL) IV STA (14:10)
[2023-06-13] MEDS ORDERED: IPRATROPIUM BROMIDE (0.02%) 0.5MG/2.5ML NEB HHN STA ×2 (14:10→18:12)
[2023-06-13] MEDS ORDERED: MAGNESIUM 2 G PREMIX 50 ML IV ONE (14:15)
[2023-06-13] MEDS ORDERED: METHYLPREDNISOLONE SOD SUCC 125MG VIAL IV NR (14:30)
[2023-06-13 14:48] LABS: BASOPHILS % 0.4 % (0.0-2.0); EOSINOPHILS % 2.1 % (0.0-5.0); HEMATOCRIT. 37.3 % (42.0-52.0); HEMOGLOBIN. 11.8 g/dL (14.0-18.0); LYMPHOCYTES % 18.7 % (20.0-50.0); MEAN CORPUSCULAR HEMOGLOBIN 26.6 pg (28.0-32.0); MEAN CORPUSCULAR HGB CONC 31.8 g/dL (31.0-37.0); MEAN CORPUSCULAR VOLUME 83.8 fL (80.0-94.0); MEAN PLATELET VOLUME 9.2 fl (7.4-10.4); MONOCYTES % 8.7 % (2.0-8.0); NEUTROPHILS % 70.1 % (40.0-76.0); PLATELET 254 x1000/uL (130-400); RED BLOOD CELL COUNT 4.45 mill/uL (4.7-6.1); RED CELL DISTRIBUTION WIDTH 18.1 % (11.6-14.6); WHITE BLOOD COUNT 7.8 x1000/uL (4.5-11.0)
[2023-06-13 14:56] LABS: CHLORIDE 96 mEq/L (98-107); INDEX HEMOLYSI 1 (1-3); INDEX ICTERIC 1 (1-4); INDEX LIPEMIC 1 (1-3); POTASSIUM 4.6 mEq/L (3.5-5.1); SODIUM 128 mEq/L (136-145)
[2023-06-13 15:14] LABS: ALANINE AMINOTRANSFERASE 31 IU/L (13-61); ALBUMIN 3.3 g/dL (3.4-5.0); ASPARTATE AMINOTRANSFERASE 16 IU/L (15-37); BILIRUBIN TOTAL 0.4 mg/dL (0.1-1.0); CALCIUM 9.3 mg/dL (8.5-10.1); CARBON DIOXIDE 21 mEq/L (21-32); CREATININE 1.6 mg/dL (0.6-1.3); NT PRO B-TYPE NATRIURETIC PEP 169 pg/mL (5-125); PROTEIN TOTAL 8.6 g/dL (6.0-8.3); TROPONIN I HIGH SENSITIVITY 7 ng/L (<78); UREA NITROGEN BLOOD 50 mg/dL (7-21)
[2023-06-13 15:34] LABS: GLUCOSE 595 mg/dL (70-105)
[2023-06-13 15:38] VITALS: PULSE 114; RESP 20; O2SAT 100
[2023-06-13] MEDS ORDERED: INSULIN REGULAR (HUMULIN R) 300UNITS/3ML VIAL IV NR (16:00)
[2023-06-13] MEDS ORDERED: INSULIN REGULAR (HUMULIN R) 300UNITS/3ML VIAL IV ONE (16:00)
[2023-06-13] MEDS ORDERED: KETOROLAC 15MG/ML VIAL IV ONE (19:15)
[2023-06-13] MEDS ORDERED: CLONIDINE 0.1MG TABLET PO PRN (22:45)
[2023-06-13] MEDS ORDERED: LORAZEPAM 2MG/ML CPJ IM PRN (22:45)
[2023-06-13] MEDS ORDERED: MAGNESIUM/ALUMINUM HYDROXIDE/SIMETHICONE 30ML UDC PO PRN (22:45)
[2023-06-13] MEDS ORDERED: IPRATROPIUM/ALBUTEROL 0.5-3(2.5)MG/3ML NEB NEB PRN (22:45)
[2023-06-13] MEDS ORDERED: INSULIN LISPRO 100 UNITS/ML SUBCUT NR (22:45)
[2023-06-13] MEDS ORDERED: GUAIFENESIN 200MG/10ML SUGAR FREE UDC PO PRN (22:45)
[2023-06-13] MEDS ORDERED: ONDANSETRON HCL 4MG/2ML INJ IV PRN (22:45)
[2023-06-13] MEDS ORDERED: INSULIN GLARGINE 100 UNITS/ML SUBCUT SCH (22:45)
[2023-06-13] MEDS ORDERED: DEXTROSE 50% WATER 50ML SYRINGE IV PRN (22:45)
[2023-06-13 22:55] LABS: CLARITY URINE CLEAR (CLEAR); COLOR URINE YELLOW (YELLOW); GLUCOSE URINE 3+ (NEGATIVE); KETONES URINE NEGATIVE (NEGATIVE); LEUKOCYTE ESTERASE URINE NEGATIVE (NEGATIVE); NITRITE URINE NEGATIVE (NEGATIVE); OCCULT BLOOD URINE NEGATIVE (NEGATIVE); PROTEIN URINE NEGATIVE (NEGATIVE); SPECIFIC GRAVITY URINE 1.027 (1.005-1.030); UROBILINOGEN URINE 0.2 E.U./dL (0.2-1.0)
[2023-06-13] MEDS ORDERED: NALOXONE HCL 0.4MG/ML VIAL IV PRN (23:30)
[2023-06-13] MEDS ORDERED: ENOXAPARIN 80MG/0.8ML SYR SUBCUT NR (23:30)
[2023-06-13] MEDS: SODIUM CHLORIDE 0.9% 1,000 ML IV SCH (23:40)
[2023-06-13 23:41] LABS: BACTERIA URINE TRACE; RBC URINE 0-2 /hpf (0-2); SQUAMOUS EPITHELIAL CELL URINE RARE /lpf (RARE/1+); WBC URINE 0-2 /hpf (0-2)
[2023-06-14 00:30] VITALS: BP 156/100; PULSE 107; RESP 20; TEMP 97
[2023-06-14 04:00] VITALS: BP 140/80; PULSE 103; RESP 20; TEMP 98
[2023-06-14] MEDS: HYDROCODONE/ACETAMINOPHEN 5/325MG TABLET PO PRN ×2 (05:01→09:59)
[2023-06-14] MEDS: BLOOD SUGAR DIAGNOSTIC STRIP TEST SCH ×4 (05:59→21:33)
[2023-06-14] MEDS: INSULIN LISPRO 100 UNITS/ML SUBCUT SCH ×5 (06:01→21:34)
[2023-06-14 07:02] LABS: HEMATOCRIT. 41.1 % (42.0-52.0); HEMOGLOBIN. 13.1 g/dL (14.0-18.0); MEAN CORPUSCULAR HEMOGLOBIN 26.3 pg (28.0-32.0); MEAN CORPUSCULAR HGB CONC 31.8 g/dL (31.0-37.0); MEAN CORPUSCULAR VOLUME 82.7 fL (80.0-94.0); MEAN PLATELET VOLUME 10.1 fl (7.4-10.4); PLATELET 276 x1000/uL (130-400); RED BLOOD CELL COUNT 4.97 mill/uL (4.7-6.1); RED CELL DISTRIBUTION WIDTH 18.5 % (11.6-14.6); WHITE BLOOD COUNT 11.4 x1000/uL (4.5-11.0)
[2023-06-14 07:07] LABS: DIFFERENTIAL COMMENT 1
[2023-06-14 07:12] LABS: CHLORIDE 95 mEq/L (98-107); INDEX HEMOLYSI 6 (1-3); INDEX ICTERIC 1 (1-4); INDEX LIPEMIC 1 (1-3); SODIUM 125 mEq/L (136-145)
[2023-06-14 07:25] LABS: ALANINE AMINOTRANSFERASE 38 IU/L (13-61); ALBUMIN 3.6 g/dL (3.4-5.0); ASPARTATE AMINOTRANSFERASE 65 IU/L (15-37); BILIRUBIN TOTAL 0.4 mg/dL (0.1-1.0); CALCIUM 9.8 mg/dL (8.5-10.1); CARBON DIOXIDE 18 mEq/L (21-32); CREATININE 1.7 mg/dL (0.6-1.3); PHOSPHORUS 3.6 mg/dL (2.5-4.9); PROTEIN TOTAL 10.4 g/dL (6.0-8.3); UREA NITROGEN BLOOD 55 mg/dL (7-21)
[2023-06-14 07:40] LABS: GLUCOSE 485 mg/dL (70-105)
[2023-06-14 07:41] LABS: POTASSIUM 6.6 mEq/L (3.5-5.1)
[2023-06-14] MEDS ORDERED: INSULIN LISPRO 100 UNITS/ML SUBCUT NR ×2 (07:49→09:33)
[2023-06-14] MEDS ORDERED: SODIUM POLYSTYRENE SULFONATE 15 G/60 ML BOT PO NR (07:49)
[2023-06-14] MEDS ORDERED: INSULIN LISPRO 100 UNITS/ML SUBCUT SCH (08:10)
[2023-06-14 08:42] VITALS: PULSE 92; RESP 20
[2023-06-14] MEDS: IPRATROPIUM/ALBUTEROL 0.5-3(2.5)MG/3ML NEB NEB SCH ×3 (08:42→20:57)
[2023-06-14] MEDS ORDERED: CALCIUM CHLORIDE 1,000 MG in DEXT 5% WATER 90 ML IV NR (09:00)
[2023-06-14 10:07] LABS: PROTHROMBIN TIME 10.3 sec (9.6-11.0)
[2023-06-14 10:32] LABS: BG BASE EXCESS -4.9 mmol/L (-2.0-2.0); BG CARBOXYHEMOGLOBIN 0.8 % (0.5-1.5); BG DEOXYHEMOGLOBIN 3.8 % (0.0-5.0); BG FRACTION INSPIRED OXYGEN 21; BG HCO3 ACT 20.6 mmol/L (22.0-26.0); BG METHEMOGLOBIN 0.2 % (0.0-1.5); BG OXYGEN SATURATION 96.2 % (92.0-98.5); BG OXYHEMOGLOBIN 95.2 % (94.0-97.0); BG PCO2 39.7 mmHg (35.0-45.0); BG PH 7.332 (7.350-7.450); BG PO2 88.8 mmHg (75.0-100.0); BG SAMPLE SITE LEFT RADIAL; BG TOTAL HEMOGLOBIN 12.8 g/dL (12.0-18.0); BG VENT MODE ROOM AIR
[2023-06-14 11:11] LABS: ANISOCYTOSIS 2+; PLATELET ESTIMATE NORMAL
[2023-06-14] MEDS: SODIUM CHLORIDE 0.9% 1,000 ML IV SCH ×2 (12:05→20:29)
[2023-06-14 13:22] LABS: POTASSIUM 4.4 mEq/L (3.5-5.1)
[2023-06-14 13:24] LABS: CALCIUM 9.8 mg/dL (8.5-10.1)
[2023-06-14 13:35] LABS: BETA HYDROXYBUTYRATE 0.1 mMol/L (0.0-0.3); CREATININE 1.8 mg/dL (0.6-1.3)
[2023-06-14 15:57] VITALS: PULSE 98; RESP 20
[2023-06-14] MEDS: LOPERAMIDE HCL 2MG CAPSULE PO PRN ×2 (16:39→22:30)
[2023-06-14] MEDS: PANTOPRAZOLE SODIUM 40 MG/VIAL IV SCH (17:30)
[2023-06-14] MEDS: ENOXAPARIN 100MG/ML SYR SUBCUT SCH (18:18)
[2023-06-14] MEDS: SERTRALINE HCL 50MG TABLET PO SCH (18:19)
[2023-06-14] MEDS: TAMSULOSIN HCL 0.4MG SR CAPSULE PO SCH (18:19)
[2023-06-14 20:00] VITALS: BP 151/94; PULSE 99; RESP 18; TEMP 97.3
[2023-06-14] MEDS: TRAZODONE HCL 50MG TABLET PO SCH (20:29)
[2023-06-14] MEDS: CARVEDILOL 3.125 MG TABLET PO SCH (20:30)
[2023-06-14 20:55] VITALS: PULSE 99; RESP 20
[2023-06-14] MEDS: CARBIDOPA/LEVODOPA 10/100MG TABLET PO SCH (21:33)
[2023-06-14] MEDS ORDERED: INSULIN GLARGINE 100 UNITS/ML SUBCUT SCH ×2 (22:00)
[2023-06-15] VITALS (13 sets, daily range): BP systolic 120–156; BP diastolic 67–96; PULSE 70–98; RESP 13–21; TEMP 97.2–98; O2SAT 99
[2023-06-15] MEDS: IPRATROPIUM/ALBUTEROL 0.5-3(2.5)MG/3ML NEB NEB SCH ×4 (02:42→20:08)
[2023-06-15] MEDS: LOPERAMIDE HCL 2MG CAPSULE PO PRN (03:44)
[2023-06-15] MEDS: SODIUM CHLORIDE 0.9% 1,000 ML IV SCH (03:44)
[2023-06-15 04:26] LABS: *AMPHETAMINES SCREEN URINE NEGATIVE (NEGATIVE); *BARBITURATES SCREEN URINE NEGATIVE (NEGATIVE); *BENZODIAZEPINES SCREEN URINE NEGATIVE (NEGATIVE); *COCAINE SCREEN URINE NEGATIVE (NEGATIVE); CANNABINOID URINE SCREEN NEGATIVE (NEGATIVE); ECSTASY MDMA SCREEN URINE NEGATIVE (NEGATIVE); METHADONE URINE SCREEN NEGATIVE (NEGATIVE); OPIATES URINE SCREEN PRESUMTIVE POSITIVE (NEGATIVE); PHENCYCLIDINE URINE SCREEN NEGATIVE (NEGATIVE)
[2023-06-15] MEDS: CARBIDOPA/LEVODOPA 10/100MG TABLET PO SCH ×2 (05:32→22:37)
[2023-06-15] MEDS: ENOXAPARIN 100MG/ML SYR SUBCUT SCH ×2 (05:32→22:37)
[2023-06-15] MEDS: BLOOD SUGAR DIAGNOSTIC STRIP TEST SCH ×3 (07:40→23:44)
[2023-06-15] MEDS: INSULIN LISPRO 100 UNITS/ML SUBCUT SCH ×5 (07:40→20:22)
[2023-06-15 08:00] LABS: HEMATOCRIT 36.9 % (42.0-52.0); HEMOGLOBIN 11.3 g/dL (14.0-18.0); MEAN CORPUSCULAR HEMOGLOBIN 25.5 pg (28.0-32.0); MEAN CORPUSCULAR HGB CONC 30.7 g/dL (31.0-37.0); MEAN CORPUSCULAR VOLUME 82.8 fL (80.0-94.0); PLATELET 234 x1000/uL (130-400); RED BLOOD CELL COUNT 4.45 mill/uL (4.7-6.1); RED CELL DISTRIBUTION WIDTH 18.5 % (11.6-14.6)
[2023-06-15] MEDS: SERTRALINE HCL 50MG TABLET PO SCH (08:05)
[2023-06-15] MEDS: TAMSULOSIN HCL 0.4MG SR CAPSULE PO SCH (08:05)
[2023-06-15] MEDS: PANTOPRAZOLE SODIUM 40 MG/VIAL IV SCH (08:06)
[2023-06-15] MEDS: CARVEDILOL 3.125 MG TABLET PO SCH ×2 (08:06→20:45)
[2023-06-15 08:09] LABS: POTASSIUM 3.8 mEq/L (3.5-5.1)
[2023-06-15 08:24] LABS: CALCIUM 8.9 mg/dL (8.5-10.1); CREATININE 1.6 mg/dL (0.6-1.3)
[2023-06-15 08:36] LABS: VITAMIN B12 SERUM 767 pg/mL (211-911)
[2023-06-15] MEDS ORDERED: INSULIN GLARGINE 100 UNITS/ML SUBCUT SCH (10:00)
[2023-06-15 11:11] LABS: FERRITIN 14 ng/mL (22-322)
[2023-06-15] MEDS ORDERED: INS NPH/REG HM 70-30 10ML VIAL (HUMULIN 70-30) SUBCUT SCH ×2 (11:15→17:40)
[2023-06-15] MEDS ORDERED: FAMO20TA8 MT (13:35)
[2023-06-15] MEDS ORDERED: INSU100I33 SQ ×2 (13:35)
[2023-06-15] MEDS ORDERED: DEXT 10%/0.45% NACL 1,000 ML IV SCH (17:15)
[2023-06-15] MEDS ORDERED: DEXT 5%/0.45% NACL 1000ML 1,000 ML IV SCH (17:30)
[2023-06-15] MEDS ORDERED: BLOOD SUGAR DIAGNOSTIC STRIP TEST SCH (18:00)
[2023-06-15] MEDS: HYDROCODONE/ACETAMINOPHEN 5/325MG TABLET PO PRN (20:44)
[2023-06-15] MEDS: TRAZODONE HCL 50MG TABLET PO SCH (20:45)
[2023-06-16] VITALS (13 sets, daily range): BP systolic 107–142; BP diastolic 53–88; PULSE 73–81; RESP 9–21; TEMP 97.7–97.9; O2SAT 99–100
[2023-06-16] MEDS ORDERED: INSULIN LISPRO 100 UNITS/ML SUBCUT NR
[2023-06-16] MEDS: SODIUM CHLORIDE 0.45% 1,000 ML IV SCH ×2 (00:40→11:04)
[2023-06-16] MEDS: LOPERAMIDE HCL 2MG CAPSULE PO PRN ×2 (01:50→05:38)
[2023-06-16] MEDS: BLOOD SUGAR DIAGNOSTIC STRIP TEST SCH ×4 (01:55→14:33)
[2023-06-16] MEDS: ACETAMINOPHEN 325MG TABLET PO PRN ×2 (01:57→05:38)
[2023-06-16] MEDS: IPRATROPIUM/ALBUTEROL 0.5-3(2.5)MG/3ML NEB NEB SCH ×2 (02:08→13:05)
[2023-06-16] MEDS ORDERED: INSULIN LISPRO 100 UNITS/ML SUBCUT SCH (02:10)
[2023-06-16] MEDS: CARBIDOPA/LEVODOPA 10/100MG TABLET PO SCH ×2 (05:38→14:33)
[2023-06-16] MEDS: ENOXAPARIN 100MG/ML SYR SUBCUT SCH (05:40)
[2023-06-16] MEDS: INSULIN LISPRO 100 UNITS/ML SUBCUT SCH ×3 (06:00→12:29)
[2023-06-16 06:34] LABS: HEMATOCRIT 37.9 % (42.0-52.0); HEMOGLOBIN 11.8 g/dL (14.0-18.0); MEAN CORPUSCULAR HEMOGLOBIN 25.4 pg (28.0-32.0); MEAN CORPUSCULAR HGB CONC 31.2 g/dL (31.0-37.0); MEAN CORPUSCULAR VOLUME 81.6 fL (80.0-94.0); PLATELET 218 x1000/uL (130-400); RED BLOOD CELL COUNT 4.65 mill/uL (4.7-6.1); RED CELL DISTRIBUTION WIDTH 18.8 % (11.6-14.6); WHITE BLOOD COUNT 7.3 x1000/uL (4.5-11.0)
[2023-06-16 07:41] LABS: POTASSIUM 3.6 mEq/L (3.5-5.1)
[2023-06-16 07:52] LABS: CALCIUM 8.5 mg/dL (8.5-10.1); CREATININE 1.4 mg/dL (0.6-1.3)
[2023-06-16] MEDS ORDERED: INS NPH/REG HM 70-30 10ML VIAL (HUMULIN 70-30) SUBCUT SCH (08:15)
[2023-06-16] MEDS: PANTOPRAZOLE SODIUM 40 MG/VIAL IV SCH (09:43)
[2023-06-16] MEDS: SERTRALINE HCL 50MG TABLET PO SCH (09:43)
[2023-06-16] MEDS: CARVEDILOL 3.125 MG TABLET PO SCH (09:43)
[2023-06-16] MEDS: TAMSULOSIN HCL 0.4MG SR CAPSULE PO SCH (09:43)
[2023-06-16] MEDS ORDERED: IRON SUCROSE COMPLEX 100 MG/5 ML ML IV SCH (17:00)
[2023-06-16] MEDS ORDERED: INSULIN GLARGINE 100 UNITS/ML SUBCUT SCH (22:00)
[2023-06-17] MEDS ORDERED: FAMOTIDINE 20MG/2ML VIAL IV SCH (09:00)
== END 2023-06-16 15:00 | disposition left against medical advice (07) | DRG 243 ==
LOC: ER 13:35 → 7WST 21:07 → EDBEDREQ 21:13 → EDBEDREQTM 21:13 → CVICU 06-15 20:45 → 5EST 06-16 08:25
PROVIDERS: ADMIT Internal Medicine; ATTEND Internal Medicine
DX: K21.9 Gastro-esophageal reflux disease without esophagitis (principal); N17.0 Acute kidney failure with tubular necrosis; E11.649 Type 2 diabetes mellitus with hypoglycemia without coma; E44.1 Mild protein-calorie malnutrition; E11.319 Type 2 diabetes mellitus with unspecified diabetic retinopathy without macular edema; E11.621 Type 2 diabetes mellitus with foot ulcer; D50.9 Iron deficiency anemia, unspecified; E11.65 Type 2 diabetes mellitus with hyperglycemia; J44.1 Chronic obstructive pulmonary disease with (acute) exacerbation; I69.354 Hemiplegia and hemiparesis following cerebral infarction affecting left non-dominant side; L97.529 Non-pressure chronic ulcer of other part of left foot with unspecified severity; I48.91 Unspecified atrial fibrillation; H54.8 Legal blindness, as defined in USA; G47.33 Obstructive sleep apnea (adult) (pediatric); F41.9 Anxiety disorder, unspecified; R00.2 Palpitations; Z53.29 Procedure and treatment not carried out because of patient's decision for other reasons; E78.00 Pure hypercholesterolemia, unspecified; M19.90 Unspecified osteoarthritis, unspecified site; I50.9 Heart failure, unspecified; K57.90 Diverticulosis of intestine, part unspecified, without perforation or abscess without bleeding; I11.0 Hypertensive heart disease with heart failure; N40.0 Benign prostatic hyperplasia without lower urinary tract symptoms; G20 Parkinson's disease; I25.2 Old myocardial infarction; Z79.899 Other long term (current) drug therapy; Z86.718 Personal history of other venous thrombosis and embolism; Z79.4 Long term (current) use of insulin; Z86.711 Personal history of pulmonary embolism; Z87.891 Personal history of nicotine dependence; Z68.34 Body mass index [BMI] 34.0-34.9, adult
CPT/HCPCS: 36415; 36600; 71045; 74176; 80048; 80053; 80305; 81003; 82010; 82270; 82375; 82570; 82607; 82728; 82746; 82803; 82805; 82962; 83010; 83036; 83540; 83550; 83605; 83615; 83735; 83880; 83930; 83935; 84100; 84300; 84484; 85025; 85027; 85044; 85379; 87493; 93005; 93970; 94640; 99285; C9113; J1650; J1815; J1885; J2405; J2930; J3475; J3490; J7060

== ENCOUNTER 2023-06-22 18:29 | Emergency (ER) | payer MEDICAID ==
[~2023-06-22] VITALS: Ht 182.9 cm; Wt 100.0 kg
[~2023-06-22 18:29] MED LIST changes: +FAMO20TA8 MT; -IMOD PO; -INSLIS SUBCUT; -INSU100I28 SQ; -SILV50CR31 TP; -TOPUD MT
[2023-06-22] MEDS ORDERED: ASPIRIN 81MG TABLET PO NR (19:00)
[2023-06-22] MEDS ORDERED: ASPIRIN 81MG TABLET PO ONE (19:00)
[2023-06-22 19:04] VITALS: BP 161/102; PULSE 85; RESP 18; TEMP 98.9; O2SAT 98
[2023-06-22 21:20] LABS: BASOPHILS % 0.3 % (0.0-2.0); DIFFERENTIAL COMMENT 0; EOSINOPHILS % 2.4 % (0.0-5.0); HEMATOCRIT. 38.9 % (42.0-52.0); HEMOGLOBIN. 11.8 g/dL (14.0-18.0); LYMPHOCYTES % 19.3 % (20.0-50.0); MEAN CORPUSCULAR HEMOGLOBIN 24.5 pg (28.0-32.0); MEAN CORPUSCULAR HGB CONC 30.4 g/dL (31.0-37.0); MEAN CORPUSCULAR VOLUME 80.7 fL (80.0-94.0); MONOCYTES % 9.5 % (2.0-8.0); NEUTROPHILS % 68.5 % (40.0-76.0); PLATELET 259 x1000/uL (130-400); RED BLOOD CELL COUNT 4.82 mill/uL (4.7-6.1); RED CELL DISTRIBUTION WIDTH 18.6 % (11.6-14.6)
[2023-06-22 21:26] LABS: CHLORIDE 103 mEq/L (98-107); INDEX HEMOLYSI 1 (1-3); INDEX ICTERIC 1 (1-4); INDEX LIPEMIC 1 (1-3); POTASSIUM 3.5 mEq/L (3.5-5.1); SODIUM 135 mEq/L (136-145)
[2023-06-22 21:30] LABS: PROTHROMBIN TIME 10.7 sec (9.6-11.0)
[2023-06-22 21:39] LABS: ALANINE AMINOTRANSFERASE 44 IU/L (13-61); ALBUMIN 3.1 g/dL (3.4-5.0); ASPARTATE AMINOTRANSFERASE 17 IU/L (15-37); BILIRUBIN TOTAL 0.2 mg/dL (0.1-1.0); CALCIUM 8.8 mg/dL (8.5-10.1); CARBON DIOXIDE 24 mEq/L (21-32); CREATININE 1.6 mg/dL (0.6-1.3); ETHANOL BLOOD < 10 mg/dL (-10); GLUCOSE 186 mg/dL (70-105); NT PRO B-TYPE NATRIURETIC PEP 62 pg/mL (5-125); PROTEIN TOTAL 8.2 g/dL (6.0-8.3); TROPONIN I HIGH SENSITIVITY 6 ng/L (<78); UREA NITROGEN BLOOD 30 mg/dL (7-21)
[2023-06-23] MEDS ORDERED: MAGNESIUM/ALUMINUM HYDROXIDE/SIMETHICONE 30ML UDC PO PRN (04:15)
[2023-06-23] MEDS ORDERED: IPRATROPIUM/ALBUTEROL 0.5-3(2.5)MG/3ML NEB HHN PRN (04:15)
[2023-06-23] MEDS ORDERED: ACETAMINOPHEN 325MG TABLET PO PRN ×2 (04:15)
[2023-06-23] MEDS ORDERED: ONDANSETRON HCL 4MG/2ML INJ IV PRN (04:15)
[2023-06-23] MEDS ORDERED: CLONIDINE 0.1MG TABLET PO PRN (04:15)
[2023-06-23] MEDS ORDERED: DEXTROSE 50% WATER 50ML SYRINGE IV PRN (04:15)
[2023-06-23] MEDS ORDERED: GUAIFENESIN 200MG/10ML SUGAR FREE UDC PO PRN (04:15)
[2023-06-23] MEDS ORDERED: DOCUSATE SODIUM 100MG CAPSULE PO PRN (04:15)
[2023-06-23] MEDS ORDERED: SODIUM CHLORIDE 0.9% 1,000 ML IV SCH (05:45)
[2023-06-23] MEDS ORDERED: INSULIN LISPRO 100 UNITS/ML SUBCUT SCH (08:20)
[2023-06-23] MEDS ORDERED: TRAZODONE HCL 50MG TABLET PO SCH (09:00)
[2023-06-23] MEDS ORDERED: BLOOD SUGAR DIAGNOSTIC STRIP TEST SCH (09:00)
[2023-06-23] MEDS ORDERED: ENOXAPARIN 100MG/ML SYR SUBCUT SCH (09:00)
[2023-06-23] MEDS ORDERED: FERROUS SULFATE 325MG TABLET PO SCH (09:00)
[2023-06-23] MEDS ORDERED: TAMSULOSIN HCL 0.4MG SR CAPSULE PO SCH (09:00)
[2023-06-23] MEDS ORDERED: CHLORTHALIDONE 25MG TABLET PO SCH (09:00)
[2023-06-23] MEDS ORDERED: LAMOTRIGINE 25MG TABLET PO SCH (09:00)
[2023-06-23] MEDS ORDERED: SERTRALINE HCL 50MG TABLET PO SCH (09:00)
== END 2023-06-23 08:52 | disposition left against medical advice (07) ==
LOC: ER 18:29 → EDBEDREQTM 21:33 → EDBEDREQ 21:33 → CANBEDREQ 06-23 08:51 → ER 06-23 08:52
DX: R07.89 Other chest pain (principal); E11.9 Type 2 diabetes mellitus without complications; I48.91 Unspecified atrial fibrillation; I44.7 Left bundle-branch block, unspecified; E78.00 Pure hypercholesterolemia, unspecified; I10 Essential (primary) hypertension; I25.2 Old myocardial infarction; N18.9 Chronic kidney disease, unspecified; Z86.73 Personal history of transient ischemic attack (TIA), and cerebral infarction without residual deficits; Z86.718 Personal history of other venous thrombosis and embolism; Z79.899 Other long term (current) drug therapy
CPT/HCPCS: 80053; 80320; 83880 ×2; 85025; 85610; 85730; 84484 ×2; 36415 ×2; 71045; 93005; 82550; 82553; 83036; 85379; 93970; Z7610; G0480

== ENCOUNTER 2023-07-04 01:03 | Emergency (ER) | payer MEDICAID ==
[~2023-07-04] VITALS: Ht 182.9 cm; Wt 114.0 kg
[2023-07-04 01:16] VITALS: O2SAT 98
[2023-07-04 01:36] LABS: DIFFERENTIAL COMMENT 0; HEMATOCRIT. 38.7 % (42.0-52.0); HEMOGLOBIN. 11.9 g/dL (14.0-18.0); LYMPHOCYTES % 8.3 % (20.0-50.0); MEAN CORPUSCULAR HGB CONC 30.7 g/dL (31.0-37.0); MEAN CORPUSCULAR VOLUME 81.4 fL (80.0-94.0); MEAN PLATELET VOLUME 8.9 fl (7.4-10.4); MONOCYTES % 8.4 % (2.0-8.0); NEUTROPHILS % 83.3 % (40.0-76.0); PLATELET 241 x1000/uL (130-400); RED BLOOD CELL COUNT 4.76 mill/uL (4.7-6.1); RED CELL DISTRIBUTION WIDTH 20.1 % (11.6-14.6); WHITE BLOOD COUNT 10.7 x1000/uL (4.5-11.0)
[2023-07-04 01:38] VITALS: TEMP 97.7
[2023-07-04 01:42] LABS: CHLORIDE 106 mEq/L (98-107); INDEX HEMOLYSI 1 (1-3); INDEX ICTERIC 1 (1-4); INDEX LIPEMIC 1 (1-3); POTASSIUM 4.6 mEq/L (3.5-5.1); SODIUM 136 mEq/L (136-145)
[2023-07-04 01:52] LABS: ALANINE AMINOTRANSFERASE 23 IU/L (13-61); ALBUMIN 3.1 g/dL (3.4-5.0); ASPARTATE AMINOTRANSFERASE 14 IU/L (15-37); BILIRUBIN TOTAL 0.2 mg/dL (0.1-1.0); CALCIUM 8.6 mg/dL (8.5-10.1); CARBON DIOXIDE 20 mEq/L (21-32); CREATININE 1.7 mg/dL (0.6-1.3); GLUCOSE 343 mg/dL (70-105); PROTEIN TOTAL 7.7 g/dL (6.0-8.3); UREA NITROGEN BLOOD 51 mg/dL (7-21)
[2023-07-04 05:30] VITALS: BP 142/85; PULSE 73; RESP 14
== END 2023-07-04 05:32 | disposition home or self-care (01) ==
LOC: ER 01:54 → CANBEDREQ 19:54
DX: R56.9 Unspecified convulsions (principal); R55 Syncope and collapse; I48.91 Unspecified atrial fibrillation; D64.9 Anemia, unspecified; F41.9 Anxiety disorder, unspecified; J44.9 Chronic obstructive pulmonary disease, unspecified; E11.9 Type 2 diabetes mellitus without complications; E78.00 Pure hypercholesterolemia, unspecified; I10 Essential (primary) hypertension; I25.2 Old myocardial infarction; Z86.73 Personal history of transient ischemic attack (TIA), and cerebral infarction without residual deficits; I20.9 Angina pectoris, unspecified
CPT/HCPCS: 80053; 82962; 85025; 36415; 93005; 99284; Z7610

== ENCOUNTER 2023-07-09 14:07 | Inpatient (IN) | payer MEDICAID ==
[~2023-07-09] VITALS: Ht 180.3 cm; Wt 94.8 kg
[2023-07-09] MEDS ORDERED: LEVETIRACETAM 1000MG PREMIX 100 ML IV ONE (14:15)
[2023-07-09] MEDS ORDERED: LORAZEPAM 2MG/ML CPJ IV ONE (15:00)
[2023-07-09 16:47] LABS: BASOPHILS % 0.3 % (0.0-2.0); EOSINOPHILS % 0.7 % (0.0-5.0); HEMATOCRIT. 40.1 % (42.0-52.0); HEMOGLOBIN. 12.9 g/dL (14.0-18.0); LYMPHOCYTES % 13.5 % (20.0-50.0); MEAN CORPUSCULAR HEMOGLOBIN 25.7 pg (28.0-32.0); MEAN CORPUSCULAR VOLUME 80.1 fL (80.0-94.0); NEUTROPHILS % 77.5 % (40.0-76.0); PLATELET 246 x1000/uL (130-400); RED BLOOD CELL COUNT 5.01 mill/uL (4.7-6.1); RED CELL DISTRIBUTION WIDTH 19.9 % (11.6-14.6); WHITE BLOOD COUNT 8.3 x1000/uL (4.5-11.0)
[2023-07-09 17:04] LABS: CHLORIDE 104 mEq/L (98-107); INDEX HEMOLYSI 1 (1-3); INDEX ICTERIC 1 (1-4); INDEX LIPEMIC 1 (1-3); POTASSIUM 4.2 mEq/L (3.5-5.1); SODIUM 133 mEq/L (136-145)
[2023-07-09 17:06] LABS: AMMONIA 25 uMol/L (<32)
[2023-07-09 17:11] LABS: ALBUMIN 3.3 g/dL (3.4-5.0); ASPARTATE AMINOTRANSFERASE 13 IU/L (15-37); BILIRUBIN TOTAL 0.2 mg/dL (0.1-1.0); CARBON DIOXIDE 28 mEq/L (21-32); CREATINE KINASE 41 IU/L (39-308); CREATININE 1.5 mg/dL (0.6-1.3); ETHANOL BLOOD < 10 mg/dL (-10); GLUCOSE 306 mg/dL (70-105); PROTEIN TOTAL 8.2 g/dL (6.0-8.3); UREA NITROGEN BLOOD 43 mg/dL (7-21)
[2023-07-09] MEDS ORDERED: LEVETIRACETAM 1000MG PREMIX 100 ML IV NR (18:00)
[2023-07-09] MEDS ORDERED: LORAZEPAM 2MG/ML CPJ IV NR (18:00)
[2023-07-09 18:03] LABS: ALANINE AMINOTRANSFERASE 14 IU/L (13-61); CALCIUM 8.8 mg/dL (8.5-10.1)
[2023-07-09] MEDS ORDERED: MAGNESIUM/ALUMINUM HYDROXIDE/SIMETHICONE 30ML UDC PO PRN (21:45)
[2023-07-09] MEDS ORDERED: ACETAMINOPHEN 325MG TABLET PO PRN (21:45)
[2023-07-09] MEDS ORDERED: ONDANSETRON HCL 4MG/2ML INJ IV PRN (21:45)
[2023-07-09] MEDS ORDERED: CLONIDINE 0.1MG TABLET PO PRN (21:45)
[2023-07-09] MEDS ORDERED: DEXTROSE 50% WATER 50ML SYRINGE IV PRN (21:45)
[2023-07-09] MEDS ORDERED: GUAIFENESIN 200MG/10ML SUGAR FREE UDC PO PRN (21:45)
[2023-07-09] MEDS ORDERED: DOCUSATE SODIUM 100MG CAPSULE PO PRN (21:45)
[2023-07-09] MEDS ORDERED: ENOXAPARIN 30MG/0.3ML SYR SUBCUT SCH (23:00)
[2023-07-09 23:55] VITALS: BP 173/109; PULSE 80; RESP 17; TEMP 97.7
[2023-07-10] MEDS ORDERED: LORAZEPAM 2MG/ML CPJ IV PRN (03:00)
[2023-07-10 06:26] LABS: CLARITY URINE CLEAR (CLEAR); COLOR URINE YELLOW (YELLOW); GLUCOSE URINE 3+ (NEGATIVE); KETONES URINE NEGATIVE (NEGATIVE); LEUKOCYTE ESTERASE URINE NEGATIVE (NEGATIVE); NITRITE URINE NEGATIVE (NEGATIVE); OCCULT BLOOD URINE NEGATIVE (NEGATIVE); PROTEIN URINE 1+ (NEGATIVE); SPECIFIC GRAVITY URINE 1.023 (1.005-1.030); UROBILINOGEN URINE 0.2 E.U./dL (0.2-1.0)
[2023-07-10 06:29] LABS: BACTERIA URINE NONE SEEN; SQUAMOUS EPITHELIAL CELL URINE NONE SEEN /lpf (RARE/1+); WBC URINE NONE SEEN /hpf (0-2); YEAST URINE NONE SEEN
[2023-07-10] MEDS: BLOOD SUGAR DIAGNOSTIC STRIP TEST SCH ×4 (06:50→20:15)
[2023-07-10 07:50] LABS: BASOPHILS % 0.2 % (0.0-2.0); EOSINOPHILS % 1.3 % (0.0-5.0); HEMATOCRIT. 40.7 % (42.0-52.0); LYMPHOCYTES % 12.2 % (20.0-50.0); MEAN CORPUSCULAR HEMOGLOBIN 25.8 pg (28.0-32.0); MEAN CORPUSCULAR HGB CONC 31.9 g/dL (31.0-37.0); MEAN CORPUSCULAR VOLUME 80.7 fL (80.0-94.0); MEAN PLATELET VOLUME 9.7 fl (7.4-10.4); MONOCYTES % 8.9 % (2.0-8.0); NEUTROPHILS % 77.4 % (40.0-76.0); PLATELET 225 x1000/uL (130-400); RED BLOOD CELL COUNT 5.05 mill/uL (4.7-6.1); RED CELL DISTRIBUTION WIDTH 20.1 % (11.6-14.6); WHITE BLOOD COUNT 8.7 x1000/uL (4.5-11.0)
[2023-07-10 08:00] VITALS: BP 144/89; PULSE 80; RESP 17; TEMP 97.8
[2023-07-10] MEDS: FAMOTIDINE 20MG TABLET PO SCH ×2 (08:45→20:09)
[2023-07-10] MEDS: BACLOFEN 10MG TABLET PO SCH (08:45)
[2023-07-10] MEDS: CARBIDOPA/LEVODOPA 10/100MG TABLET PO SCH ×3 (08:45→17:55)
[2023-07-10] MEDS: CHLORTHALIDONE 25MG TABLET PO SCH (08:46)
[2023-07-10] MEDS: LAMOTRIGINE 25MG TABLET PO SCH ×2 (08:46→17:55)
[2023-07-10] MEDS: SERTRALINE HCL 50MG TABLET PO SCH (08:46)
[2023-07-10] MEDS: APIXABAN 5 MG TABLET PO SCH ×2 (08:46→17:55)
[2023-07-10] MEDS: GABAPENTIN 100MG CAPSULE PO SCH ×2 (08:46→17:55)
[2023-07-10] MEDS: TAMSULOSIN HCL 0.4MG SR CAPSULE PO SCH (08:47)
[2023-07-10] MEDS: INSULIN LISPRO 100 UNITS/ML SUBCUT SCH ×4 (08:47→20:15)
[2023-07-10] MEDS ORDERED: BENZONATATE 100MG CAPSULE PO PRN (09:00)
[2023-07-10] MEDS ORDERED: LEVETIRACETAM 500MG PREMIX 100 ML IV SCH (09:00)
[2023-07-10 11:32] LABS: PROTHROMBIN TIME 10.6 sec (9.6-11.0)
[2023-07-10 12:00] VITALS: BP 144/89; PULSE 77; RESP 12; TEMP 99
[2023-07-10] MEDS ORDERED: LORAZEPAM 2MG/ML CPJ IV NR (12:45)
[2023-07-10 14:56] LABS: CHLORIDE 104 mEq/L (98-107); INDEX HEMOLYSI 3 (1-3); INDEX ICTERIC 1 (1-4); INDEX LIPEMIC 1 (1-3); POTASSIUM 4.5 mEq/L (3.5-5.1); SODIUM 137 mEq/L (136-145)
[2023-07-10 15:30] LABS: FOLIC ACID (FOLATE) SERUM 17.3 ng/mL (>5.38)
[2023-07-10 16:00] VITALS: BP 147/84; PULSE 110; RESP 19; TEMP 97
[2023-07-10 16:14] LABS: *AMPHETAMINES SCREEN URINE NEGATIVE (NEGATIVE); *BARBITURATES SCREEN URINE NEGATIVE (NEGATIVE); *BENZODIAZEPINES SCREEN URINE NEGATIVE (NEGATIVE); *COCAINE SCREEN URINE NEGATIVE (NEGATIVE); CANNABINOID URINE SCREEN NEGATIVE (NEGATIVE); ECSTASY MDMA SCREEN URINE NEGATIVE (NEGATIVE); METHADONE URINE SCREEN NEGATIVE (NEGATIVE); OPIATES URINE SCREEN NEGATIVE (NEGATIVE); PHENCYCLIDINE URINE SCREEN NEGATIVE (NEGATIVE)
[2023-07-10 16:53] LABS: ALANINE AMINOTRANSFERASE 22 IU/L (13-61); ALBUMIN 3.3 g/dL (3.4-5.0); ASPARTATE AMINOTRANSFERASE 24 IU/L (15-37); BILIRUBIN TOTAL 0.4 mg/dL (0.1-1.0); CALCIUM 9.2 mg/dL (8.5-10.1); CARBON DIOXIDE 22 mEq/L (21-32); CHOLESTEROL 136 mg/dL (<200); CREATININE 1.5 mg/dL (0.6-1.3); GLUCOSE 279 mg/dL (70-105); HDL CHOLESTEROL 47 mg/dL (40-59); IRON 43 ug/dL (50-175); LDL CHOLESTEROL 64 mg/dL (5-100); PHOSPHORUS 3.3 mg/dL (2.5-4.9); PROTEIN TOTAL 8.2 g/dL (6.0-8.3); T4 FREE 1.32 ng/dL (0.76-1.46); TOTAL IRON BINDING CAPACITY 477 ug/dL (250-450); TRIGLYCERIDE 319 mg/dL (0-150); TROPONIN I HIGH SENSITIVITY 7 ng/L (<78); UREA NITROGEN BLOOD 41 mg/dL (7-21)
[2023-07-10 18:50] LABS: THYROID STIMULATING HORMONE 0.83 uIU/mL (0.36-3.74)
[2023-07-10 20:00] VITALS: BP 125/74; PULSE 121; RESP 15; TEMP 97.3
[2023-07-10] MEDS: ACETAMINOPHEN 325MG TABLET PO PRN (20:09)
[2023-07-10] MEDS: TRAZODONE HCL 50MG TABLET PO SCH (20:23)
[2023-07-10] MEDS: ATORVASTATIN CALCIUM 40MG TABLET PO SCH (20:24)
[2023-07-10] MEDS: LEVETIRACETAM 1,500 MG in SODIUM CHLORIDE 0.9% 100 ML IV SCH (21:09)
[2023-07-10 21:59] LABS: TROPONIN I HIGH SENSITIVITY 6 ng/L (<78)
[2023-07-11] VITALS (15 sets, daily range): BP systolic 94–211; BP diastolic 37–134; PULSE 65–100; RESP 12–20; TEMP 97.4–98.3
[2023-07-11] MEDS: BLOOD SUGAR DIAGNOSTIC STRIP TEST SCH ×4 (06:50→23:33)
[2023-07-11] MEDS: CARBIDOPA/LEVODOPA 10/100MG TABLET PO SCH ×3 (08:35→17:23)
[2023-07-11] MEDS: APIXABAN 5 MG TABLET PO SCH ×2 (08:35→17:23)
[2023-07-11] MEDS: BACLOFEN 10MG TABLET PO SCH (08:35)
[2023-07-11] MEDS: LAMOTRIGINE 25MG TABLET PO SCH ×2 (08:35→17:23)
[2023-07-11] MEDS: SERTRALINE HCL 50MG TABLET PO SCH (08:35)
[2023-07-11] MEDS: FAMOTIDINE 20MG TABLET PO SCH ×2 (08:35→23:33)
[2023-07-11] MEDS: LEVETIRACETAM 1,500 MG in SODIUM CHLORIDE 0.9% 100 ML IV SCH (08:35)
[2023-07-11] MEDS: CHLORTHALIDONE 25MG TABLET PO SCH (08:36)
[2023-07-11] MEDS: GABAPENTIN 100MG CAPSULE PO SCH ×2 (08:36→17:23)
[2023-07-11] MEDS: TAMSULOSIN HCL 0.4MG SR CAPSULE PO SCH (08:36)
[2023-07-11] MEDS: INSULIN LISPRO 100 UNITS/ML SUBCUT SCH ×4 (08:42→23:34)
[2023-07-11 10:59] LABS: BASOPHILS % 0.2 % (0.0-2.0); EOSINOPHILS % 1.1 % (0.0-5.0); HEMATOCRIT. 41.7 % (42.0-52.0); HEMOGLOBIN. 13.1 g/dL (14.0-18.0); MEAN CORPUSCULAR HEMOGLOBIN 25.7 pg (28.0-32.0); MEAN CORPUSCULAR HGB CONC 31.3 g/dL (31.0-37.0); MEAN PLATELET VOLUME 9.2 fl (7.4-10.4); MONOCYTES % 7.3 % (2.0-8.0); NEUTROPHILS % 78.4 % (40.0-76.0); PLATELET 216 x1000/uL (130-400); RED BLOOD CELL COUNT 5.09 mill/uL (4.7-6.1); RED CELL DISTRIBUTION WIDTH 19.7 % (11.6-14.6); WHITE BLOOD COUNT 8.5 x1000/uL (4.5-11.0)
[2023-07-11] MEDS: LORAZEPAM 2MG/ML CPJ IM PRN ×2 (11:15→16:11)
[2023-07-11 13:08] LABS: CHLORIDE 101 mEq/L (98-107); INDEX HEMOLYSI 3 (1-3); INDEX ICTERIC 1 (1-4); INDEX LIPEMIC 1 (1-3); POTASSIUM 4.4 mEq/L (3.5-5.1); SODIUM 131 mEq/L (136-145)
[2023-07-11 13:09] LABS: ALBUMIN 3.1 g/dL (3.4-5.0); CALCIUM 9.5 mg/dL (8.5-10.1); CARBON DIOXIDE 22 mEq/L (21-32); GLUCOSE 357 mg/dL (70-105); LDL CHOLESTEROL 57 mg/dL (5-100); PHOSPHORUS 3.2 mg/dL (2.5-4.9); TRIGLYCERIDE 289 mg/dL (0-150); UREA NITROGEN BLOOD 43 mg/dL (7-21)
[2023-07-11 13:23] LABS: ALANINE AMINOTRANSFERASE 20 IU/L (13-61); ASPARTATE AMINOTRANSFERASE 23 IU/L (15-37); BILIRUBIN TOTAL 0.2 mg/dL (0.1-1.0); CREATININE 1.6 mg/dL (0.6-1.3); HDL CHOLESTEROL 48 mg/dL (40-59); IRON 40 ug/dL (50-175); PROTEIN TOTAL 8.1 g/dL (6.0-8.3); T4 FREE 1.15 ng/dL (0.76-1.46); THYROID STIMULATING HORMONE 0.59 uIU/mL (0.36-3.74); TOTAL IRON BINDING CAPACITY 451 ug/dL (250-450)
[2023-07-11 13:36] LABS: VITAMIN B12 SERUM 817 pg/mL (211-911)
[2023-07-11] MEDS ORDERED: CARV12.545 PO (14:33)
[2023-07-11] MEDS ORDERED: GABA-532 PO (14:33)
[2023-07-11] MEDS ORDERED: CARB-31 PO (14:36)
[2023-07-11] MEDS ORDERED: INSU100I33 SQ ×2 (14:48→14:52)
[2023-07-11 15:24] LABS: CHOLESTEROL 117 mg/dL (<200)
[2023-07-11] MEDS ORDERED: PHENYTOIN 10MG/ML SYR IV ONE (16:15)
[2023-07-11] MEDS ORDERED: PHENYTOIN SODIUM IV NR (17:00)
[2023-07-11] MEDS ORDERED: SODIUM CHLORIDE 0.9% IV NR (17:00)
[2023-07-11] MEDS: ACYCLOVIR INJ 750 MG in DEXT 5% WATER 250 ML IV SCH (18:37)
[2023-07-11] MEDS ORDERED: LORAZEPAM 2MG/ML CPJ IM PRN (19:45)
[2023-07-11] MEDS: LEVETIRACETAM 2,000 MG in SODIUM CHLORIDE 0.9% 100 ML IV SCH (20:59)
[2023-07-11 23:32] LABS: BG BASE EXCESS 3.5 mmol/L (-2.0-2.0); BG CARBOXYHEMOGLOBIN 0.9 % (0.5-1.5); BG DEOXYHEMOGLOBIN 0.9 % (0.0-5.0); BG FRACTION INSPIRED OXYGEN 50; BG HCO3 ACT 28.2 mmol/L (22.0-26.0); BG METHEMOGLOBIN 0.2 % (0.0-1.5); BG OXYGEN SATURATION 99.1 % (92.0-98.5); BG PCO2 42.8 mmHg (35.0-45.0); BG PH 7.436 (7.350-7.450); BG PO2 161.4 mmHg (75.0-100.0); BG SAMPLE SITE LEFT RADIAL; BG TOTAL HEMOGLOBIN 14.4 g/dL (12.0-18.0); BG VENT MODE VENT - AC
[2023-07-11] MEDS: TRAZODONE HCL 50MG TABLET PO SCH (23:32)
[2023-07-11] MEDS: ATORVASTATIN CALCIUM 40MG TABLET PO SCH (23:33)
[2023-07-12] VITALS (103 sets, daily range): BP systolic 88–151; BP diastolic 60–94; PULSE 68–94; RESP 8–18; TEMP 98.1–98.6
[2023-07-12] MEDS: PROPOFOL 10MG/ML 100ML 100 ML IV PRN ×6 (00:10→21:19)
[2023-07-12] MEDS: ACYCLOVIR INJ 750 MG in DEXT 5% WATER 250 ML IV SCH ×3 (02:47→18:21)
[2023-07-12 07:03] LABS: POTASSIUM 4.5 mEq/L (3.5-5.1)
[2023-07-12 07:11] LABS: CALCIUM 8.6 mg/dL (8.5-10.1); CREATININE 1.9 mg/dL (0.6-1.3)
[2023-07-12] MEDS: BLOOD SUGAR DIAGNOSTIC STRIP TEST SCH ×4 (08:38→23:37)
[2023-07-12] MEDS: APIXABAN 5 MG TABLET PO SCH ×2 (08:54→17:11)
[2023-07-12] MEDS: FAMOTIDINE 20MG TABLET PO SCH ×2 (08:54→20:17)
[2023-07-12] MEDS: PHENYTOIN SODIUM 100MG/2ML VIAL IV SCH ×2 (08:54→17:10)
[2023-07-12] MEDS: CARBIDOPA/LEVODOPA 10/100MG TABLET PO SCH ×3 (08:54→17:10)
[2023-07-12] MEDS: LEVETIRACETAM 2,000 MG in SODIUM CHLORIDE 0.9% 100 ML IV SCH ×2 (08:54→21:21)
[2023-07-12] MEDS: CHLORTHALIDONE 25MG TABLET PO SCH (08:54)
[2023-07-12] MEDS: BACLOFEN 10MG TABLET PO SCH (08:55)
[2023-07-12] MEDS: SERTRALINE HCL 50MG TABLET PO SCH (08:55)
[2023-07-12] MEDS: TAMSULOSIN HCL 0.4MG SR CAPSULE PO SCH (08:55)
[2023-07-12] MEDS: LAMOTRIGINE 25MG TABLET PO SCH ×2 (08:55→17:10)
[2023-07-12] MEDS: GABAPENTIN 100MG CAPSULE PO SCH ×2 (08:55→17:10)
[2023-07-12] MEDS: INSULIN LISPRO 100 UNITS/ML SUBCUT SCH ×4 (08:56→23:37)
[2023-07-12] MEDS ORDERED: LIDOCAINE HCL 1% 10 MG/ML 10ML VIAL ONE (09:52)
[2023-07-12 10:02] LABS: BG DEOXYHEMOGLOBIN 1.7 % (0.0-5.0); BG FRACTION INSPIRED OXYGEN 405; BG HCO3 ACT 23.8 mmol/L (22.0-26.0); BG METHEMOGLOBIN 0.3 % (0.0-1.5); BG OXYGEN SATURATION 98.3 % (92.0-98.5); BG PCO2 39.7 mmHg (35.0-45.0); BG PH 7.395 (7.350-7.450); BG PO2 126.7 mmHg (75.0-100.0); BG SAMPLE SITE RIGHT BRACHIAL; BG TOTAL HEMOGLOBIN 13.4 g/dL (12.0-18.0); BG VENT MODE VENT - AC
[2023-07-12 10:05] LABS: HEMATOCRIT 41.4 % (42.0-52.0); HEMOGLOBIN 12.8 g/dL (14.0-18.0); MEAN CORPUSCULAR HEMOGLOBIN 24.9 pg (28.0-32.0); MEAN CORPUSCULAR HGB CONC 30.8 g/dL (31.0-37.0); MEAN CORPUSCULAR VOLUME 80.7 fL (80.0-94.0); PLATELET 225 x1000/uL (130-400); RED BLOOD CELL COUNT 5.13 mill/uL (4.7-6.1); RED CELL DISTRIBUTION WIDTH 20.5 % (11.6-14.6); WHITE BLOOD COUNT 10.1 x1000/uL (4.5-11.0)
[2023-07-12 10:28] LABS: TROPONIN I HIGH SENSITIVITY 8 ng/L (<78)
[2023-07-12] MEDS: ATORVASTATIN CALCIUM 40MG TABLET PO SCH (20:17)
[2023-07-12] MEDS: TRAZODONE HCL 50MG TABLET PO SCH (20:17)
[2023-07-12] MEDS: CEFTRIAXONE 2 G in DEXTROSE 5% WATER 50 ML IV SCH (20:17)
[2023-07-12] MEDS ORDERED: VANCOMYCIN 1500MG in DEXTROSE 5% WATER 250ML IV NR (21:00)
[2023-07-12] MEDS ORDERED: INSULIN GLARGINE 100 UNITS/ML SUBCUT SCH (22:00)
[2023-07-13] VITALS (100 sets, daily range): BP systolic 101–158; BP diastolic 51–104; PULSE 68–120; RESP 8–72; TEMP 98.2–99.5; O2SAT 98
[2023-07-13] MEDS: ACYCLOVIR INJ 750 MG in DEXT 5% WATER 250 ML IV SCH ×3 (02:03→17:32)
[2023-07-13] MEDS: PROPOFOL 10MG/ML 100ML 100 ML IV PRN ×3 (02:46→10:23)
[2023-07-13] MEDS: BLOOD SUGAR DIAGNOSTIC STRIP TEST SCH ×4 (05:27→23:06)
[2023-07-13] MEDS: INSULIN LISPRO 100 UNITS/ML SUBCUT SCH ×4 (05:30→23:14)
[2023-07-13 05:40] LABS: BASOPHILS % 0.2 % (0.0-2.0); DIFFERENTIAL COMMENT 0; EOSINOPHILS % 1.8 % (0.0-5.0); HEMATOCRIT. 41.3 % (42.0-52.0); HEMOGLOBIN. 12.8 g/dL (14.0-18.0); LYMPHOCYTES % 13.6 % (20.0-50.0); MEAN CORPUSCULAR HEMOGLOBIN 25.5 pg (28.0-32.0); MEAN CORPUSCULAR HGB CONC 30.9 g/dL (31.0-37.0); MEAN CORPUSCULAR VOLUME 82.4 fL (80.0-94.0); MEAN PLATELET VOLUME 9.3 fl (7.4-10.4); MONOCYTES % 9.3 % (2.0-8.0); NEUTROPHILS % 75.1 % (40.0-76.0); PLATELET 190 x1000/uL (130-400); RED BLOOD CELL COUNT 5.02 mill/uL (4.7-6.1); RED CELL DISTRIBUTION WIDTH 20.2 % (11.6-14.6)
[2023-07-13 05:53] LABS: CHLORIDE 104 mEq/L (98-107); INDEX HEMOLYSI 2 (1-3); INDEX ICTERIC 1 (1-4); INDEX LIPEMIC 1 (1-3); POTASSIUM 3.5 mEq/L (3.5-5.1); SODIUM 134 mEq/L (136-145)
[2023-07-13 06:01] LABS: ALANINE AMINOTRANSFERASE 12 IU/L (13-61); ASPARTATE AMINOTRANSFERASE 16 IU/L (15-37); BILIRUBIN TOTAL 0.3 mg/dL (0.1-1.0); CALCIUM 8.3 mg/dL (8.5-10.1); CARBON DIOXIDE 25 mEq/L (21-32); CREATINE KINASE 53 IU/L (39-308); CREATININE 1.9 mg/dL (0.6-1.3); GLUCOSE 227 mg/dL (70-105); PHOSPHORUS 3.1 mg/dL (2.5-4.9); TRIGLYCERIDE 345 mg/dL (0-150); UREA NITROGEN BLOOD 42 mg/dL (7-21)
[2023-07-13] MEDS: CEFTRIAXONE 2 G in DEXTROSE 5% WATER 50 ML IV SCH ×2 (09:23→19:58)
[2023-07-13] MEDS: PHENYTOIN SODIUM 100MG/2ML VIAL IV SCH ×2 (09:23→17:25)
[2023-07-13] MEDS: CHLORTHALIDONE 25MG TABLET PO SCH (09:24)
[2023-07-13] MEDS: FAMOTIDINE 20MG TABLET PO SCH ×2 (09:24→20:42)
[2023-07-13] MEDS: SERTRALINE HCL 50MG TABLET PO SCH (09:24)
[2023-07-13] MEDS: LAMOTRIGINE 25MG TABLET PO SCH ×2 (09:24→17:24)
[2023-07-13] MEDS: CARBIDOPA/LEVODOPA 10/100MG TABLET PO SCH ×3 (09:24→17:24)
[2023-07-13] MEDS: GABAPENTIN 100MG CAPSULE PO SCH ×2 (09:24→17:24)
[2023-07-13] MEDS: TAMSULOSIN HCL 0.4MG SR CAPSULE PO SCH (09:24)
[2023-07-13] MEDS: BACLOFEN 10MG TABLET PO SCH (09:24)
[2023-07-13] MEDS: APIXABAN 5 MG TABLET PO SCH ×2 (09:24→17:25)
[2023-07-13] MEDS: LEVETIRACETAM 2,000 MG in SODIUM CHLORIDE 0.9% 100 ML IV SCH ×2 (09:43→20:42)
[2023-07-13 10:03] LABS: BG BASE EXCESS -0.8 mmol/L (-2.0-2.0); BG CARBOXYHEMOGLOBIN 0.9 % (0.5-1.5); BG DEOXYHEMOGLOBIN 1.9 % (0.0-5.0); BG FRACTION INSPIRED OXYGEN 35; BG HCO3 ACT 22.8 mmol/L (22.0-26.0); BG METHEMOGLOBIN 0.1 % (0.0-1.5); BG OXYGEN SATURATION 98.1 % (92.0-98.5); BG OXYHEMOGLOBIN 97.1 % (94.0-97.0); BG PCO2 34.6 mmHg (35.0-45.0); BG PH 7.437 (7.350-7.450); BG PO2 109.4 mmHg (75.0-100.0); BG SAMPLE SITE RIGHT RADIAL; BG TOTAL HEMOGLOBIN 13.8 g/dL (12.0-18.0); BG VENT MODE VENT - AC
[2023-07-13] MEDS: LORAZEPAM 2MG/ML CPJ IV PRN (12:01)
[2023-07-13] MEDS: IPRATROPIUM/ALBUTEROL 0.5-3(2.5)MG/3ML NEB HHN PRN ×2 (12:17→16:35)
[2023-07-13 13:54] LABS: BG BASE EXCESS 1.3 mmol/L (-2.0-2.0); BG CARBOXYHEMOGLOBIN 0.9 % (0.5-1.5); BG DEOXYHEMOGLOBIN 2.7 % (0.0-5.0); BG FRACTION INSPIRED OXYGEN 35; BG HCO3 ACT 26.3 mmol/L (22.0-26.0); BG METHEMOGLOBIN 0.1 % (0.0-1.5); BG OXYGEN SATURATION 97.3 % (92.0-98.5); BG OXYHEMOGLOBIN 96.3 % (94.0-97.0); BG PH 7.404 (7.350-7.450); BG PO2 94.7 mmHg (75.0-100.0); BG SAMPLE SITE RIGHT RADIAL; BG TOTAL HEMOGLOBIN 13.9 g/dL (12.0-18.0); BG VENT MODE VENT - CPAP
[2023-07-13] MEDS ORDERED: VANCOMYCIN 750MG PREMIX 150 ML IV SCH (15:00)
[2023-07-13] MEDS: TRAZODONE HCL 50MG TABLET PO SCH (20:42)
[2023-07-13] MEDS: ATORVASTATIN CALCIUM 40MG TABLET PO SCH (20:42)
[2023-07-13] MEDS ORDERED: VANCOMYCIN 1.25GM PMX (XELLIA) 250 ML IV NR (21:00)
[2023-07-13] MEDS: INSULIN GLARGINE 100 UNITS/ML SUBCUT SCH (21:34)
[2023-07-14] VITALS (49 sets, daily range): BP systolic 116–167; BP diastolic 69–101; PULSE 68–93; RESP 7–38; TEMP 97.3–98.3
[2023-07-14] MEDS: ACYCLOVIR INJ 750 MG in DEXT 5% WATER 250 ML IV SCH ×3 (01:30→18:45)
[2023-07-14] MEDS: BLOOD SUGAR DIAGNOSTIC STRIP TEST SCH ×4 (06:00→23:37)
[2023-07-14 06:46] LABS: BASOPHILS % 0.2 % (0.0-2.0); EOSINOPHILS % 1.8 % (0.0-5.0); HEMATOCRIT. 39.4 % (42.0-52.0); HEMOGLOBIN. 12.1 g/dL (14.0-18.0); LYMPHOCYTES % 9.8 % (20.0-50.0); MEAN CORPUSCULAR HGB CONC 30.9 g/dL (31.0-37.0); MEAN CORPUSCULAR VOLUME 80.9 fL (80.0-94.0); MEAN PLATELET VOLUME 9.5 fl (7.4-10.4); MONOCYTES % 8.6 % (2.0-8.0); NEUTROPHILS % 79.6 % (40.0-76.0); PLATELET 181 x1000/uL (130-400); RED BLOOD CELL COUNT 4.87 mill/uL (4.7-6.1); RED CELL DISTRIBUTION WIDTH 20.2 % (11.6-14.6); WHITE BLOOD COUNT 11.2 x1000/uL (4.5-11.0)
[2023-07-14 08:12] LABS: CALCIUM 8.9 mg/dL (8.5-10.1); POTASSIUM 3.3 mEq/L (3.5-5.1)
[2023-07-14 08:18] LABS: CREATININE 1.7 mg/dL (0.6-1.3); PHOSPHORUS 3.8 mg/dL (2.5-4.9)
[2023-07-14 08:25] LABS: BG BASE EXCESS 2.3 mmol/L (-2.0-2.0); BG CARBOXYHEMOGLOBIN 0.9 % (0.5-1.5); BG DEOXYHEMOGLOBIN 1.3 % (0.0-5.0); BG FRACTION INSPIRED OXYGEN 32; BG METHEMOGLOBIN 0.2 % (0.0-1.5); BG OXYGEN SATURATION 98.7 % (92.0-98.5); BG OXYHEMOGLOBIN 97.6 % (94.0-97.0); BG PCO2 37.5 mmHg (35.0-45.0); BG PH 7.459 (7.350-7.450); BG SAMPLE SITE LEFT RADIAL; BG TOTAL HEMOGLOBIN 13.3 g/dL (12.0-18.0); BG VENT MODE NASAL CANNULA
[2023-07-14] MEDS: INSULIN LISPRO 100 UNITS/ML SUBCUT SCH ×4 (08:50→23:35)
[2023-07-14] MEDS: APIXABAN 5 MG TABLET PO SCH (09:00)
[2023-07-14] MEDS: CEFTRIAXONE 2 G in DEXTROSE 5% WATER 50 ML IV SCH (09:04)
[2023-07-14] MEDS: SERTRALINE HCL 50MG TABLET PO SCH (09:05)
[2023-07-14] MEDS: FAMOTIDINE 20MG TABLET PO SCH ×2 (09:05→21:00)
[2023-07-14] MEDS: GABAPENTIN 100MG CAPSULE PO SCH ×2 (09:05→18:45)
[2023-07-14] MEDS: PHENYTOIN SODIUM 100MG/2ML VIAL IV SCH ×2 (09:05→18:45)
[2023-07-14] MEDS: CARBIDOPA/LEVODOPA 10/100MG TABLET PO SCH ×3 (09:05→18:49)
[2023-07-14] MEDS: LAMOTRIGINE 25MG TABLET PO SCH ×2 (09:05→18:45)
[2023-07-14] MEDS: BACLOFEN 10MG TABLET PO SCH (09:05)
[2023-07-14] MEDS: LEVETIRACETAM 2,000 MG in SODIUM CHLORIDE 0.9% 250 ML IV SCH ×2 (09:05→21:00)
[2023-07-14] MEDS: CHLORTHALIDONE 25MG TABLET PO SCH (09:06)
[2023-07-14] MEDS: TAMSULOSIN HCL 0.4MG SR CAPSULE PO SCH (09:06)
[2023-07-14] MEDS: TRAZODONE HCL 50MG TABLET PO SCH (21:00)
[2023-07-14] MEDS: ATORVASTATIN CALCIUM 40MG TABLET PO SCH (21:00)
[2023-07-14] MEDS ORDERED: VANCOMYCIN 1G PREMIX 200 ML IV NR (21:00)
[2023-07-14] MEDS: MORPHINE SULFATE 2 MG/ML CPJ (NOT FOR IM USE) IV PRN (22:00)
[2023-07-14] MEDS: LORAZEPAM 2MG/ML CPJ IV PRN (22:00)
[2023-07-14] MEDS ORDERED: CEFEPIME 2,000 MG in DEXT 5% WATER 100 ML IV SCH (22:00)
[2023-07-14] MEDS: INSULIN GLARGINE 100 UNITS/ML SUBCUT SCH (22:02)
[2023-07-14] MEDS: CEFEPIME 2,000 MG in DEXT 5% WATER 100 ML IV SCH (22:59)
[2023-07-15] VITALS (9 sets, daily range): BP systolic 116–142; BP diastolic 35–96; PULSE 69–91; RESP 12–20; TEMP 97.5–99
[2023-07-15] MEDS: LORAZEPAM 2MG/ML CPJ IV PRN (02:01)
[2023-07-15] MEDS: MORPHINE SULFATE 2 MG/ML CPJ (NOT FOR IM USE) IV PRN ×2 (02:02→11:53)
[2023-07-15] MEDS: ACYCLOVIR INJ 750 MG in DEXT 5% WATER 250 ML IV SCH ×3 (02:57→19:21)
[2023-07-15] MEDS: BLOOD SUGAR DIAGNOSTIC STRIP TEST SCH ×3 (05:23→18:12)
[2023-07-15] MEDS: INSULIN LISPRO 100 UNITS/ML SUBCUT SCH ×3 (05:23→18:12)
[2023-07-15 07:36] LABS: POTASSIUM 3.2 mEq/L (3.5-5.1)
[2023-07-15 07:43] LABS: CALCIUM 8.5 mg/dL (8.5-10.1); CREATININE 1.3 mg/dL (0.6-1.3)
[2023-07-15] MEDS: LAMOTRIGINE 25MG TABLET PO SCH ×2 (09:26→18:06)
[2023-07-15] MEDS: SERTRALINE HCL 50MG TABLET PO SCH (09:26)
[2023-07-15] MEDS: GABAPENTIN 100MG CAPSULE PO SCH ×2 (09:26→18:07)
[2023-07-15] MEDS: FAMOTIDINE 20MG TABLET PO SCH ×2 (09:26→22:37)
[2023-07-15] MEDS: TAMSULOSIN HCL 0.4MG SR CAPSULE PO SCH (09:26)
[2023-07-15] MEDS: LEVETIRACETAM 2,000 MG in SODIUM CHLORIDE 0.9% 250 ML IV SCH ×2 (09:27→22:40)
[2023-07-15] MEDS: CEFEPIME 2,000 MG in DEXT 5% WATER 100 ML IV SCH ×2 (09:27→18:39)
[2023-07-15] MEDS: CHLORTHALIDONE 25MG TABLET PO SCH (09:27)
[2023-07-15] MEDS: BACLOFEN 10MG TABLET PO SCH (09:28)
[2023-07-15] MEDS: CARBIDOPA/LEVODOPA 10/100MG TABLET PO SCH ×3 (10:15→18:07)
[2023-07-15] MEDS ORDERED: POTASSIUM CHLORIDE INJ 40 MEQ in DEXT 5% WATER 250 ML IV ONE (10:15)
[2023-07-15] MEDS: PHENYTOIN SODIUM 100MG/2ML VIAL IV SCH ×2 (10:15→18:07)
[2023-07-15] MEDS: KCL 20MEQ/100ML X 2 FOR TOTAL KCL 40MEQ/200ML IV SCH ×2 (13:36→16:47)
[2023-07-15] MEDS ORDERED: NALOXONE HCL 0.4MG/ML VIAL IV PRN (15:15)
[2023-07-15] MEDS: VANCOMYCIN 1G PREMIX 200 ML IV SCH (15:18)
[2023-07-15] MEDS: TRAZODONE HCL 50MG TABLET PO SCH (22:37)
[2023-07-15] MEDS: ATORVASTATIN CALCIUM 40MG TABLET PO SCH (22:37)
[2023-07-15] MEDS: INSULIN GLARGINE 100 UNITS/ML SUBCUT SCH (22:58)
[2023-07-16] VITALS (9 sets, daily range): BP systolic 120–143; BP diastolic 74–91; PULSE 75–87; RESP 16–20; TEMP 97.6–98.1
[2023-07-16] MEDS: CEFEPIME 2,000 MG in DEXT 5% WATER 100 ML IV SCH ×3 (00:09→15:22)
[2023-07-16] MEDS: BLOOD SUGAR DIAGNOSTIC STRIP TEST SCH ×5 (00:25→22:03)
[2023-07-16] MEDS: INSULIN LISPRO 100 UNITS/ML SUBCUT SCH ×5 (00:30→22:26)
[2023-07-16] MEDS: MORPHINE SULFATE 2 MG/ML CPJ (NOT FOR IM USE) IV PRN ×3 (01:58→22:52)
[2023-07-16] MEDS: ACYCLOVIR INJ 750 MG in DEXT 5% WATER 250 ML IV SCH ×3 (02:04→18:13)
[2023-07-16] MEDS: LAMOTRIGINE 25MG TABLET PO SCH ×2 (08:55→17:44)
[2023-07-16] MEDS: GABAPENTIN 100MG CAPSULE PO SCH ×2 (08:55→17:44)
[2023-07-16] MEDS: TAMSULOSIN HCL 0.4MG SR CAPSULE PO SCH (08:55)
[2023-07-16] MEDS: CARBIDOPA/LEVODOPA 10/100MG TABLET PO SCH ×3 (08:55→17:44)
[2023-07-16] MEDS: SERTRALINE HCL 50MG TABLET PO SCH (08:55)
[2023-07-16] MEDS: FAMOTIDINE 20MG TABLET PO SCH ×2 (08:56→22:05)
[2023-07-16] MEDS: CHLORTHALIDONE 25MG TABLET PO SCH (08:56)
[2023-07-16] MEDS: BACLOFEN 10MG TABLET PO SCH (08:56)
[2023-07-16] MEDS: LEVETIRACETAM 2,000 MG in SODIUM CHLORIDE 0.9% 250 ML IV SCH ×2 (08:56→22:05)
[2023-07-16] MEDS: VANCOMYCIN 1G PREMIX 200 ML IV SCH (08:56)
[2023-07-16] MEDS: PHENYTOIN SODIUM 100MG/2ML VIAL IV SCH ×2 (08:57→17:44)
[2023-07-16 09:59] LABS: BG BASE EXCESS -0.3 mmol/L (-2.0-2.0); BG CARBOXYHEMOGLOBIN 0.9 % (0.5-1.5); BG DEOXYHEMOGLOBIN 0.2 % (0.0-5.0); BG FRACTION INSPIRED OXYGEN 100; BG HCO3 ACT 26.8 mmol/L (22.0-26.0); BG METHEMOGLOBIN 0.3 % (0.0-1.5); BG OXYGEN SATURATION 99.8 % (92.0-98.5); BG OXYHEMOGLOBIN 98.6 % (94.0-97.0); BG PH 7.314 (7.350-7.450); BG PO2 450.6 mmHg (75.0-100.0); BG SAMPLE SITE RIGHT RADIAL; BG TOTAL HEMOGLOBIN 13.6 g/dL (12.0-18.0); BG VENT MODE MASK - NRB
[2023-07-16 12:27] LABS: BG BASE EXCESS -0.3 mmol/L (-2.0-2.0); BG CARBOXYHEMOGLOBIN 0.6 % (0.5-1.5); BG DEOXYHEMOGLOBIN 3.7 % (0.0-5.0); BG FRACTION INSPIRED OXYGEN 30; BG HCO3 ACT 24.7 mmol/L (22.0-26.0); BG METHEMOGLOBIN 0.1 % (0.0-1.5); BG OXYGEN SATURATION 96.3 % (92.0-98.5); BG OXYHEMOGLOBIN 95.6 % (94.0-97.0); BG PCO2 42.2 mmHg (35.0-45.0); BG PH 7.386 (7.350-7.450); BG PO2 86.7 mmHg (75.0-100.0); BG SAMPLE SITE RIGHT BRACHIAL; BG TOTAL HEMOGLOBIN 12.9 g/dL (12.0-18.0); BG VENT MODE MASK - BIPAP
[2023-07-16] MEDS ORDERED: LIDOCAINE HCL 1% 10 MG/ML 10ML VIAL ONE (13:16)
[2023-07-16] MEDS: ACETAMINOPHEN 325MG TABLET PO PRN (15:12)
[2023-07-16 16:41] LABS: GLUCOSE CSF 122 mg/dL (41-75)
[2023-07-16] MEDS ORDERED: IPRATROPIUM/ALBUTEROL 0.5-3(2.5)MG/3ML NEB HHN PRN (17:15)
[2023-07-16 18:00] LABS: BASOPHILS % 0.3 % (0.0-2.0); HEMATOCRIT. 37.5 % (42.0-52.0); HEMOGLOBIN. 11.7 g/dL (14.0-18.0); LYMPHOCYTES % 13.8 % (20.0-50.0); MEAN CORPUSCULAR HEMOGLOBIN 25.3 pg (28.0-32.0); MEAN CORPUSCULAR HGB CONC 31.3 g/dL (31.0-37.0); MEAN CORPUSCULAR VOLUME 80.8 fL (80.0-94.0); MEAN PLATELET VOLUME 9.5 fl (7.4-10.4); MONOCYTES % 8.1 % (2.0-8.0); NEUTROPHILS % 73.8 % (40.0-76.0); PLATELET 167 x1000/uL (130-400); RED BLOOD CELL COUNT 4.64 mill/uL (4.7-6.1); RED CELL DISTRIBUTION WIDTH 19.6 % (11.6-14.6); WHITE BLOOD COUNT 7.3 x1000/uL (4.5-11.0)
[2023-07-16 18:11] LABS: CHLORIDE 102 mEq/L (98-107); INDEX HEMOLYSI 1 (1-3); INDEX ICTERIC 1 (1-4); INDEX LIPEMIC 1 (1-3); POTASSIUM 3.3 mEq/L (3.5-5.1); SODIUM 135 mEq/L (136-145)
[2023-07-16 18:19] LABS: CALCIUM 8.5 mg/dL (8.5-10.1); CARBON DIOXIDE 27 mEq/L (21-32); CREATININE 1.2 mg/dL (0.6-1.3); GLUCOSE 226 mg/dL (70-105); PHENYTOIN 14.6 ug/mL (10-20); PHOSPHORUS 2.2 mg/dL (2.5-4.9); UREA NITROGEN BLOOD 19 mg/dL (7-21)
[2023-07-16 18:46] LABS: CSF APPEARANCE CLEAR (CLEAR)
[2023-07-16 18:47] LABS: CSF WHITE BLOOD CELL 0 /cu mm (0-10)
[2023-07-16] MEDS ORDERED: DEXTROSE 50% WATER 50ML SYRINGE IV PRN (21:15)
[2023-07-16] MEDS: TRAZODONE HCL 50MG TABLET PO SCH (22:05)
[2023-07-16] MEDS: POTASSIUM CHLORIDE 20MEQ TABLET SR PO SCH (22:06)
[2023-07-16] MEDS: INSULIN GLARGINE 100 UNITS/ML SUBCUT SCH (22:11)
[2023-07-16] MEDS: ATORVASTATIN CALCIUM 40MG TABLET PO SCH (22:23)
[2023-07-16] MEDS: PIPERACILLIN/TAZOBACTAM 3.375 G in DEXTROSE 5% WATER 50 ML IV SCH (22:50)
[2023-07-17] VITALS: BP 105/61; PULSE 82; RESP 20; TEMP 97.4
[2023-07-17] MEDS: MORPHINE SULFATE 2 MG/ML CPJ (NOT FOR IM USE) IV PRN ×3 (03:06→10:38)
[2023-07-17] MEDS: ACYCLOVIR INJ 750 MG in DEXT 5% WATER 250 ML IV SCH ×2 (03:11→10:30)
[2023-07-17 04:00] VITALS: BP 115/64; PULSE 76; RESP 20; TEMP 97.4
[2023-07-17 04:29] VITALS: RESP 19
[2023-07-17] MEDS: BLOOD SUGAR DIAGNOSTIC STRIP TEST SCH ×4 (06:41→20:59)
[2023-07-17] MEDS: PIPERACILLIN/TAZOBACTAM 3.375 G in DEXTROSE 5% WATER 50 ML IV SCH ×3 (06:43→21:01)
[2023-07-17] MEDS: INSULIN LISPRO 100 UNITS/ML SUBCUT SCH ×4 (06:47→21:01)
[2023-07-17 08:00] VITALS: BP 117/68; PULSE 78; RESP 20; TEMP 98
[2023-07-17] MEDS: BACLOFEN 10MG TABLET PO SCH (09:01)
[2023-07-17] MEDS: SERTRALINE HCL 50MG TABLET PO SCH (09:01)
[2023-07-17] MEDS: TAMSULOSIN HCL 0.4MG SR CAPSULE PO SCH (09:01)
[2023-07-17] MEDS: FAMOTIDINE 20MG TABLET PO SCH ×2 (09:01→20:59)
[2023-07-17] MEDS: CARBIDOPA/LEVODOPA 10/100MG TABLET PO SCH ×3 (09:01→17:16)
[2023-07-17] MEDS: GABAPENTIN 100MG CAPSULE PO SCH ×2 (09:03→17:16)
[2023-07-17] MEDS: LAMOTRIGINE 25MG TABLET PO SCH ×2 (09:04→17:16)
[2023-07-17] MEDS: PHENYTOIN SODIUM 100MG/2ML VIAL IV SCH ×2 (09:04→17:00)
[2023-07-17] MEDS: POTASSIUM CHLORIDE 20MEQ TABLET SR PO SCH ×2 (09:04→17:16)
[2023-07-17] MEDS: CHLORTHALIDONE 25MG TABLET PO SCH (09:04)
[2023-07-17] MEDS: LEVETIRACETAM 2,000 MG in SODIUM CHLORIDE 0.9% 250 ML IV SCH (09:05)
[2023-07-17 12:00] VITALS: BP 122/74; PULSE 76; RESP 19; TEMP 98.6
[2023-07-17 13:24] LABS: POTASSIUM 3.8 mEq/L (3.5-5.1)
[2023-07-17 13:32] LABS: CREATININE 1.5 mg/dL (0.6-1.3); PHOSPHORUS 2.6 mg/dL (2.5-4.9)
[2023-07-17] MEDS: APIXABAN 2.5 MG TABLET PO SCH ×2 (17:16→21:00)
[2023-07-17 20:00] VITALS: BP 136/72; PULSE 77; RESP 20; TEMP 97.5
[2023-07-17] MEDS: ATORVASTATIN CALCIUM 40MG TABLET PO SCH (20:59)
[2023-07-17] MEDS: TRAZODONE HCL 50MG TABLET PO SCH (20:59)
[2023-07-17] MEDS: INSULIN GLARGINE 100 UNITS/ML SUBCUT SCH (21:12)
[2023-07-17] MEDS ORDERED: MIDAZOLAM HCL 2 MG/2 ML VIAL IM PRN (22:30)
[2023-07-18] VITALS (9 sets, daily range): BP systolic 113–146; BP diastolic 71–92; PULSE 73–78; RESP 15–24; TEMP 96.8–98
[2023-07-18] MEDS: PIPERACILLIN/TAZOBACTAM 3.375 G in DEXTROSE 5% WATER 50 ML IV SCH ×3 (06:00→22:04)
[2023-07-18] MEDS: INSULIN LISPRO 100 UNITS/ML SUBCUT SCH ×4 (06:55→22:05)
[2023-07-18] MEDS: BLOOD SUGAR DIAGNOSTIC STRIP TEST SCH ×4 (06:55→21:07)
[2023-07-18] MEDS: BACLOFEN 10MG TABLET PO SCH (08:51)
[2023-07-18] MEDS: FAMOTIDINE 20MG TABLET PO SCH ×2 (08:51→20:55)
[2023-07-18] MEDS: SERTRALINE HCL 25MG TABLET PO SCH (08:52)
[2023-07-18] MEDS: POTASSIUM CHLORIDE 20MEQ TABLET SR PO SCH ×2 (08:52→16:43)
[2023-07-18] MEDS: TAMSULOSIN HCL 0.4MG SR CAPSULE PO SCH (08:52)
[2023-07-18] MEDS: APIXABAN 2.5 MG TABLET PO SCH ×2 (08:52→16:51)
[2023-07-18] MEDS: GABAPENTIN 100MG CAPSULE PO SCH ×2 (08:52→16:46)
[2023-07-18] MEDS: CHLORTHALIDONE 25MG TABLET PO SCH (08:52)
[2023-07-18] MEDS: LAMOTRIGINE 25MG TABLET PO SCH ×2 (08:53→16:44)
[2023-07-18] MEDS: CARBIDOPA/LEVODOPA 10/100MG TABLET PO SCH ×3 (08:53→16:44)
[2023-07-18] MEDS ORDERED: LIDOCAINE HCL 1% 10 MG/ML 10ML VIAL ONE (09:13)
[2023-07-18] MEDS: MORPHINE SULFATE 2 MG/ML CPJ (NOT FOR IM USE) IV PRN ×3 (12:10→20:57)
[2023-07-18] MEDS: TRAZODONE HCL 50MG TABLET PO SCH (20:55)
[2023-07-18] MEDS: PHENYTOIN SODIUM EXTENDED 100MG CAPSULE PO SCH (20:55)
[2023-07-18] MEDS: ATORVASTATIN CALCIUM 40MG TABLET PO SCH (20:56)
[2023-07-18] MEDS: INSULIN GLARGINE 100 UNITS/ML SUBCUT SCH (22:06)
[2023-07-19] MEDS: MORPHINE SULFATE 2 MG/ML CPJ (NOT FOR IM USE) IV PRN ×2 (01:41→05:50)
[2023-07-19 04:29] VITALS: BP 120/78; PULSE 72; RESP 15; TEMP 97.3
[2023-07-19] MEDS: PIPERACILLIN/TAZOBACTAM 3.375 G in DEXTROSE 5% WATER 50 ML IV SCH ×2 (05:47→14:00)
[2023-07-19] MEDS: INSULIN LISPRO 100 UNITS/ML SUBCUT SCH ×2 (06:39→13:49)
[2023-07-19] MEDS: BLOOD SUGAR DIAGNOSTIC STRIP TEST SCH ×2 (06:39→12:10)
[2023-07-19 08:00] VITALS: BP 130/88; PULSE 80; RESP 18; TEMP 96.7
[2023-07-19] MEDS: LAMOTRIGINE 25MG TABLET PO SCH (09:26)
[2023-07-19] MEDS: SERTRALINE HCL 25MG TABLET PO SCH (09:26)
[2023-07-19] MEDS: BACLOFEN 10MG TABLET PO SCH (09:26)
[2023-07-19] MEDS: TAMSULOSIN HCL 0.4MG SR CAPSULE PO SCH (09:26)
[2023-07-19] MEDS: GABAPENTIN 100MG CAPSULE PO SCH (09:27)
[2023-07-19] MEDS: PHENYTOIN SODIUM EXTENDED 100MG CAPSULE PO SCH (09:27)
[2023-07-19] MEDS: FAMOTIDINE 20MG TABLET PO SCH (09:27)
[2023-07-19] MEDS: APIXABAN 2.5 MG TABLET PO SCH (09:27)
[2023-07-19] MEDS: CHLORTHALIDONE 25MG TABLET PO SCH (09:27)
[2023-07-19] MEDS: POTASSIUM CHLORIDE 20MEQ TABLET SR PO SCH (09:27)
[2023-07-19] MEDS: CARBIDOPA/LEVODOPA 10/100MG TABLET PO SCH ×2 (09:27→15:18)
[2023-07-19] MEDS ORDERED: TRAMADOL 50MG TABLET PO PRN (10:00)
[2023-07-19 12:00] VITALS: BP 134/77; PULSE 75; RESP 17; TEMP 96.7
[2023-07-19 13:19] VITALS: BP 129/75; PULSE 75; TEMP 98
[2023-07-19 16:00] VITALS: BP 118/77; PULSE 81; RESP 18; TEMP 97
[2023-07-23 08:08] LABS: *HSV 1 DNA PCR Negative (Negative); *HSV 2 DNA PCR Negative (Negative)
== END 2023-07-19 17:48 | disposition home or self-care (01) | DRG 53 ==
LOC: ER 14:07 → MICUSO 19:17 → EDBEDREQTM 19:41 → EDBEDREQ 19:41 → 3WST 23:55 → CVICU 07-11 21:30 → 8WST 07-15 03:30
PROVIDERS: ADMIT Hospitalist; ATTEND Hospitalist
PROC: 4A00X4Z Measurement of Central Nervous Electrical Activity, External Approach (ICD-10-PCS; 2023-07-10)
PROC: 5A1945Z Respiratory Ventilation, 24-96 Consecutive Hours (ICD-10-PCS; principal; 2023-07-11)
PROC: 0BH17EZ Insertion of Endotracheal Airway into Trachea, Via Natural or Artificial Opening (ICD-10-PCS; 2023-07-11)
PROC: 02HV33Z Insertion of Infusion Device into Superior Vena Cava, Percutaneous Approach (ICD-10-PCS; 2023-07-12)
PROC: B548ZZA Ultrasonography of Superior Vena Cava, Guidance (ICD-10-PCS; 2023-07-12)
PROC: 009U3ZZ Drainage of Spinal Canal, Percutaneous Approach (ICD-10-PCS; 2023-07-16)
PROC: B01B1ZZ Fluoroscopy of Spinal Cord using Low Osmolar Contrast (ICD-10-PCS; 2023-07-16)
PROC: 5A09357 Assistance with Respiratory Ventilation, Less than 24 Consecutive Hours, Continuous Positive Airway Pressure (ICD-10-PCS; 2023-07-18)
PROC: 05HY33Z Insertion of Infusion Device into Upper Vein, Percutaneous Approach (ICD-10-PCS; 2023-07-18)
PROC: B54MZZA Ultrasonography of Right Upper Extremity Veins, Guidance (ICD-10-PCS; 2023-07-18)
PROC: 5A09357 Assistance with Respiratory Ventilation, Less than 24 Consecutive Hours, Continuous Positive Airway Pressure (ICD-10-PCS; 2023-07-19)
DX: G40.901 Epilepsy, unspecified, not intractable, with status epilepticus (principal); J96.00 Acute respiratory failure, unspecified whether with hypoxia or hypercapnia; J15.1 Pneumonia due to Pseudomonas; E44.1 Mild protein-calorie malnutrition; I82.621 Acute embolism and thrombosis of deep veins of right upper extremity; N17.9 Acute kidney failure, unspecified; E11.22 Type 2 diabetes mellitus with diabetic chronic kidney disease; E11.42 Type 2 diabetes mellitus with diabetic polyneuropathy; E87.1 Hypo-osmolality and hyponatremia; I48.91 Unspecified atrial fibrillation; D50.9 Iron deficiency anemia, unspecified; E11.621 Type 2 diabetes mellitus with foot ulcer; L97.509 Non-pressure chronic ulcer of other part of unspecified foot with unspecified severity; K21.9 Gastro-esophageal reflux disease without esophagitis; M48.00 Spinal stenosis, site unspecified; N18.30 Chronic kidney disease, stage 3 unspecified; G20 Parkinson's disease; E11.65 Type 2 diabetes mellitus with hyperglycemia; E66.01 Morbid (severe) obesity due to excess calories; F32.A Depression, unspecified; I69.354 Hemiplegia and hemiparesis following cerebral infarction affecting left non-dominant side; E78.00 Pure hypercholesterolemia, unspecified; E78.5 Hyperlipidemia, unspecified; F32.9 Major depressive disorder, single episode, unspecified; G47.33 Obstructive sleep apnea (adult) (pediatric); I12.9 Hypertensive chronic kidney disease with stage 1 through stage 4 chronic kidney disease, or unspecified chronic kidney disease; I25.10 Atherosclerotic heart disease of native coronary artery without angina pectoris; J44.9 Chronic obstructive pulmonary disease, unspecified; N40.0 Benign prostatic hyperplasia without lower urinary tract symptoms; F41.9 Anxiety disorder, unspecified; M19.90 Unspecified osteoarthritis, unspecified site; T42.6X5A Adverse effect of other antiepileptic and sedative-hypnotic drugs, initial encounter; Z68.29 Body mass index [BMI] 29.0-29.9, adult; Z79.01 Long term (current) use of anticoagulants; Z79.84 Long term (current) use of oral hypoglycemic drugs; Z79.899 Other long term (current) drug therapy; Z86.718 Personal history of other venous thrombosis and embolism; Z87.891 Personal history of nicotine dependence; Z83.3 Family history of diabetes mellitus; Z82.49 Family history of ischemic heart disease and other diseases of the circulatory system; Y92.89 Other specified places as the place of occurrence of the external cause
CPT/HCPCS: 31500; 36415; 36573; 36600; 62328; 70551; 70553; 71045; 73630; 76700; 80048; 80053; 80061; 80185; 80202; 80305; 80320; 81003; 82140; 82375; 82542; 82550; 82607; 82746; 82805; 82945; 82962; 83036; 83540; 83550; 83735; 84100; 84145; 84157; 84439; 84443; 84478; 84484; 85025; 85027; 86592; 86663; 86788; 86789; 87070; 87077; 87186; 87529; 87899; 92610; 93005; 93306; 93880; 93970; 93971; 94002; 94003; 94640; 94660; 97161; 99291; A4565; C1725; C1893; J0133; J0692; J0696; J1165; J1650; J1815; J1953; J2060; J2270; J2405; J2543; J2704; J3370; J3480; J3490; J7050; J7060; G0480

== ENCOUNTER 2023-07-27 00:30 | Emergency (ER) | payer MEDICAID ==
[~2023-07-27] VITALS: Ht 180.3 cm; Wt 97.0 kg
[~2023-07-27 00:30] MED LIST changes: -BENZ200C52 MT; -CARB-31 MT; +CARB-31 PO; +CARV12.545 PO; -DICL100G31 TP; +DICL100G58 TP; -FAMO20TA8 MT; -GABA-529 PO; +GABA-532 PO; +INSU100I33 SQ; -LAM25 PO
[2023-07-27 00:39] VITALS: O2SAT 99
[2023-07-27 01:46] LABS: BASOPHILS % 0.5 % (0.0-2.0); EOSINOPHILS % 2.2 % (0.0-5.0); HEMATOCRIT. 37.5 % (42.0-52.0); HEMOGLOBIN. 12.3 g/dL (14.0-18.0); MEAN CORPUSCULAR HEMOGLOBIN 26.9 pg (28.0-32.0); MEAN CORPUSCULAR HGB CONC 32.9 g/dL (31.0-37.0); MEAN CORPUSCULAR VOLUME 81.8 fL (80.0-94.0); MEAN PLATELET VOLUME 8.5 fl (7.4-10.4); MONOCYTES % 9.9 % (2.0-8.0); NEUTROPHILS % 67.4 % (40.0-76.0); PLATELET 285 x1000/uL (130-400); RED BLOOD CELL COUNT 4.59 mill/uL (4.7-6.1); RED CELL DISTRIBUTION WIDTH 20.6 % (11.6-14.6)
[2023-07-27 01:49] LABS: CHLORIDE 101 mEq/L (98-107); INDEX HEMOLYSI 1 (1-3); INDEX ICTERIC 1 (1-4); INDEX LIPEMIC 1 (1-3); POTASSIUM 3.8 mEq/L (3.5-5.1); SODIUM 137 mEq/L (136-145)
[2023-07-27 01:58] LABS: ALANINE AMINOTRANSFERASE 28 IU/L (13-61); ALBUMIN 3.2 g/dL (3.4-5.0); ASPARTATE AMINOTRANSFERASE 18 IU/L (15-37); BILIRUBIN TOTAL 0.2 mg/dL (0.1-1.0); CALCIUM 8.2 mg/dL (8.5-10.1); CARBON DIOXIDE 30 mEq/L (21-32); CREATININE 1.4 mg/dL (0.6-1.3); GLUCOSE 302 mg/dL (70-105); NT PRO B-TYPE NATRIURETIC PEP 157 pg/mL (5-125); PROTEIN TOTAL 8.3 g/dL (6.0-8.3); TROPONIN I HIGH SENSITIVITY 7 ng/L (<78); UREA NITROGEN BLOOD 33 mg/dL (7-21)
[2023-07-27 04:27] LABS: CLARITY URINE CLEAR (CLEAR); COLOR URINE YELLOW (YELLOW); GLUCOSE URINE 3+ (NEGATIVE); KETONES URINE NEGATIVE (NEGATIVE); LEUKOCYTE ESTERASE URINE NEGATIVE (NEGATIVE); NITRITE URINE NEGATIVE (NEGATIVE); OCCULT BLOOD URINE NEGATIVE (NEGATIVE); PH URINE 5.5 (4.5-8.0); PROTEIN URINE 1+ (NEGATIVE); SPECIFIC GRAVITY URINE 1.026 (1.005-1.030); UROBILINOGEN URINE 0.2 E.U./dL (0.2-1.0)
[2023-07-27 04:30] LABS: BACTERIA URINE NONE SEEN; RBC URINE 0-2 /hpf (0-2); YEAST URINE NONE SEEN
[2023-07-27 05:01] LABS: SQUAMOUS EPITHELIAL CELL URINE FEW /lpf (RARE/1+)
[2023-07-27 05:02] LABS: WBC URINE 0-2 /hpf (0-2)
[2023-07-27 05:52] LABS: TROPONIN I HIGH SENSITIVITY 5 ng/L (<78)
[2023-07-27 06:43] VITALS: TEMP 98.4
[2023-07-27] MEDS ORDERED: LEVETIRACETAM 500MG TABLET PO ONE (06:45)
[2023-07-27] MEDS ORDERED: PHENYTOIN SODIUM EXTENDED 100MG CAPSULE PO ONE (06:45)
[2023-07-27] MEDS ORDERED: ASPIRIN 81MG TABLET PO ONE (06:45)
[2023-07-27 08:25] VITALS: BP 156/87; PULSE 71; RESP 18
== END 2023-07-27 08:26 | disposition home or self-care (01) ==
LOC: ER 00:30
DX: R07.89 Other chest pain (principal); F41.9 Anxiety disorder, unspecified; J44.9 Chronic obstructive pulmonary disease, unspecified; M19.90 Unspecified osteoarthritis, unspecified site; E78.00 Pure hypercholesterolemia, unspecified; I25.2 Old myocardial infarction; F12.90 Cannabis use, unspecified, uncomplicated; E11.9 Type 2 diabetes mellitus without complications; N40.0 Benign prostatic hyperplasia without lower urinary tract symptoms; I48.91 Unspecified atrial fibrillation; I20.9 Angina pectoris, unspecified; I11.0 Hypertensive heart disease with heart failure; I50.9 Heart failure, unspecified; N28.9 Disorder of kidney and ureter, unspecified; Z87.891 Personal history of nicotine dependence; Z86.73 Personal history of transient ischemic attack (TIA), and cerebral infarction without residual deficits; Z79.899 Other long term (current) drug therapy
CPT/HCPCS: 80053; 81003; 83880; 83690; 85025; 84484; 36415; 71045; 93005; 99285; Z7610 ×3

== ENCOUNTER 2023-09-24 13:08 | Emergency (ER) | payer MEDICAID ==
[~2023-09-24] VITALS: Ht 175.3 cm; Wt 113.0 kg
[2023-09-24 13:10] VITALS: O2SAT 100
[2023-09-24 15:17] LABS: BASOPHILS % 0.2 % (0.0-2.0); EOSINOPHILS % 2.4 % (0.0-5.0); HEMATOCRIT. 35.2 % (42.0-52.0); HEMOGLOBIN. 11.2 g/dL (14.0-18.0); LYMPHOCYTES % 12.6 % (20.0-50.0); MEAN CORPUSCULAR HEMOGLOBIN 26.9 pg (28.0-32.0); MEAN CORPUSCULAR HGB CONC 31.7 g/dL (31.0-37.0); MEAN CORPUSCULAR VOLUME 84.9 fL (80.0-94.0); MEAN PLATELET VOLUME 8.9 fl (7.4-10.4); MONOCYTES % 7.8 % (2.0-8.0); PLATELET 191 x1000/uL (130-400); RED BLOOD CELL COUNT 4.14 mill/uL (4.7-6.1); RED CELL DISTRIBUTION WIDTH 19.5 % (11.6-14.6); WHITE BLOOD COUNT 7.5 x1000/uL (4.5-11.0)
[2023-09-24 15:19] LABS: CLARITY URINE CLEAR (CLEAR); COLOR URINE YELLOW (YELLOW); GLUCOSE URINE 3+ (NEGATIVE); KETONES URINE NEGATIVE (NEGATIVE); LEUKOCYTE ESTERASE URINE NEGATIVE (NEGATIVE); NITRITE URINE NEGATIVE (NEGATIVE); OCCULT BLOOD URINE NEGATIVE (NEGATIVE); PH URINE 5.5 (4.5-8.0); PROTEIN URINE TRACE (NEGATIVE); SPECIFIC GRAVITY URINE 1.015 (1.005-1.030); UROBILINOGEN URINE 0.2 E.U./dL (0.2-1.0)
[2023-09-24 15:35] LABS: INR 1.5; PROTHROMBIN TIME 15.3 sec (9.6-11.0)
[2023-09-24 15:36] LABS: AMMONIA < 10 uMol/L (<32)
[2023-09-24 15:57] LABS: *AMPHETAMINES SCREEN URINE NEGATIVE (NEGATIVE); *BARBITURATES SCREEN URINE NEGATIVE (NEGATIVE); *BENZODIAZEPINES SCREEN URINE NEGATIVE (NEGATIVE); *COCAINE SCREEN URINE NEGATIVE (NEGATIVE); CANNABINOID URINE SCREEN NEGATIVE (NEGATIVE); ECSTASY MDMA SCREEN URINE NEGATIVE (NEGATIVE); METHADONE URINE SCREEN Neg (NEGATIVE); OPIATES URINE SCREEN NEGATIVE (NEGATIVE); PHENCYCLIDINE URINE SCREEN NEGATIVE (NEGATIVE)
[2023-09-24 16:04] LABS: RBC URINE NONE SEEN /hpf (0-2); SQUAMOUS EPITHELIAL CELL URINE RARE /lpf (RARE/1+); WBC URINE 0-2 /hpf (0-2)
[2023-09-24 16:05] LABS: BACTERIA URINE TRACE
[2023-09-24 17:21] LABS: ALANINE AMINOTRANSFERASE 50 IU/L (10-49); ALBUMIN 3.9 g/dL (3.2-4.8); ASPARTATE AMINOTRANSFERASE 29 IU/L (<34); BILIRUBIN TOTAL 0.2 mg/dL (0.1-1.0); CALCIUM 8.7 mg/dL (8.7-10.4); CARBON DIOXIDE 21 mEq/L (21-32); CHLORIDE 102 mEq/L (98-107); CREATININE 1.5 mg/dL (0.6-1.3); GLUCOSE 277 mg/dL (70-105); PROTEIN TOTAL 7.1 g/dL (6.0-8.3); SODIUM 135 mEq/L (136-145); UREA NITROGEN BLOOD 37 mg/dL (9-23)
[2023-09-24 17:28] VITALS: BP 132/76; PULSE 72; RESP 16; TEMP 98.2
[2023-09-24 17:28] LABS: ETHANOL BLOOD < 10 mg/dL (<10)
[2023-09-24 18:55] LABS: THYROID STIMULATING HORMONE 1.79 uIU/mL (0.55-4.78)
[2023-09-24 19:03] LABS: TROPONIN I HIGH SENSITIVITY < 4 ng/L (3.0-53)
== END 2023-09-24 18:35 | disposition left against medical advice (07) ==
LOC: ER 13:08 → EDBEDREQ 13:28 → ER 18:35
DX: R56.9 Unspecified convulsions (principal); R07.89 Other chest pain; F12.10 Cannabis abuse, uncomplicated; E78.00 Pure hypercholesterolemia, unspecified; I11.0 Hypertensive heart disease with heart failure; I50.9 Heart failure, unspecified; J44.1 Chronic obstructive pulmonary disease with (acute) exacerbation; Z86.73 Personal history of transient ischemic attack (TIA), and cerebral infarction without residual deficits
CPT/HCPCS: 36415; 71045; 80053; 80305; 80320; 81003; 82140; 82962; 84443; 84484; 85025; 93005; 99291; G0480

== ENCOUNTER 2024-01-25 14:56 | Inpatient (IN) | payer MEDICAID ==
[~2024-01-25] VITALS: Ht 180.3 cm; Wt 94.6 kg
[~2024-01-25 14:56] MED LIST changes: -APIX5TAB PO; +CHOL-36; +HYDR100T26 PO; +SITA25TA3 PO; +WARF7.5T48 PO
[2024-01-25 15:36] LABS: BASOPHILS % 0.6 % (0.0-2.0); EOSINOPHILS % 2.9 % (0.0-5.0); HEMATOCRIT. 37.9 % (42.0-52.0); HEMOGLOBIN. 12.4 g/dL (14.0-18.0); LYMPHOCYTES % 15.3 % (20.0-50.0); MEAN CORPUSCULAR HEMOGLOBIN 26.7 pg (28.0-32.0); MEAN CORPUSCULAR HGB CONC 32.6 g/dL (31.0-37.0); MEAN PLATELET VOLUME 9.2 fl (7.4-10.4); MONOCYTES % 8.1 % (2.0-8.0); NEUTROPHILS % 73.1 % (40.0-76.0); PLATELET 244 x1000/uL (130-400); RED BLOOD CELL COUNT 4.63 mill/uL (4.7-6.1); RED CELL DISTRIBUTION WIDTH 17.4 % (11.6-14.6)
[2024-01-25 15:45] LABS: PROTHROMBIN TIME 10.9 sec (9.6-11.0)
[2024-01-25 15:49] LABS: ALANINE AMINOTRANSFERASE 18 IU/L (10-49); ALBUMIN 4.2 g/dL (3.2-4.8); ASPARTATE AMINOTRANSFERASE 18 IU/L (<34); BILIRUBIN TOTAL 0.3 mg/dL (0.1-1.0); CALCIUM 9.1 mg/dL (8.7-10.4); CARBON DIOXIDE 25 mEq/L (21-32); CHLORIDE 101 mEq/L (98-107); CREATININE 1.8 mg/dL (0.6-1.3); GLUCOSE 282 mg/dL (70-105); POTASSIUM 3.9 mEq/L (3.5-5.1); PROTEIN TOTAL 9.5 g/dL (6.0-8.3); SODIUM 134 mEq/L (136-145); UREA NITROGEN BLOOD 40 mg/dL (9-23)
[2024-01-25 15:52] LABS: ETHANOL BLOOD < 10 mg/dL (<10)
[2024-01-25 16:33] LABS: CLARITY URINE CLEAR (CLEAR); COLOR URINE YELLOW (YELLOW); GLUCOSE URINE 3+ (NEGATIVE); KETONES URINE NEGATIVE (NEGATIVE); LEUKOCYTE ESTERASE URINE NEGATIVE (NEGATIVE); NITRITE URINE NEGATIVE (NEGATIVE); OCCULT BLOOD URINE TRACE (NEGATIVE); PROTEIN URINE 1+ (NEGATIVE); SPECIFIC GRAVITY URINE 1.022 (1.005-1.030); UROBILINOGEN URINE 0.2 E.U./dL (0.2-1.0)
[2024-01-25 16:45] LABS: *AMPHETAMINES SCREEN URINE NEGATIVE (NEGATIVE); *BARBITURATES SCREEN URINE NEGATIVE (NEGATIVE); *BENZODIAZEPINES SCREEN URINE NEGATIVE (NEGATIVE); *COCAINE SCREEN URINE NEGATIVE (NEGATIVE); CANNABINOID URINE SCREEN NEGATIVE (NEGATIVE); ECSTASY MDMA SCREEN URINE NEGATIVE (NEGATIVE); METHADONE URINE SCREEN Neg (NEGATIVE); OPIATES URINE SCREEN NEGATIVE (NEGATIVE); PHENCYCLIDINE URINE SCREEN NEGATIVE (NEGATIVE)
[2024-01-25 17:15] LABS: WBC URINE 0-2 /hpf (0-2)
[2024-01-25 17:16] LABS: BACTERIA URINE TRACE; SQUAMOUS EPITHELIAL CELL URINE RARE /lpf (RARE/1+)
[2024-01-25 18:19] VITALS: PULSE 80; RESP 19; O2SAT 99
[2024-01-25] MEDS: IPRATROPIUM BROMIDE (0.02%) 0.5MG/2.5ML NEB HHN NR (18:19)
[2024-01-25] MEDS: ALBUTEROL (0.083%) 2.5MG/3ML NEB HHN NR (18:19)
[2024-01-25] MEDS ORDERED: DOCUSATE SODIUM 100MG CAPSULE PO PRN (20:45)
[2024-01-25] MEDS ORDERED: ACETAMINOPHEN 325MG TABLET PO PRN (20:45)
[2024-01-25] MEDS ORDERED: IPRATROPIUM/ALBUTEROL 0.5-3(2.5)MG/3ML NEB HHN PRN (20:45)
[2024-01-25] MEDS ORDERED: CLONIDINE 0.1MG TABLET PO PRN (20:45)
[2024-01-25] MEDS ORDERED: DEXTROSE 50% WATER 50ML SYRINGE IV PRN (21:15)
[2024-01-25] MEDS ORDERED: IOHEXOL-350 100 ML BOTTLE ONE (22:22)
[2024-01-25] MEDS ORDERED: VANCOMYCIN 1.5GM/250ML 250 ML IV NR (23:30)
[2024-01-25 23:34] LABS: CREATINE KINASE 34 IU/L (46-171); IRON 44 ug/dL (65-175); TOTAL IRON BINDING CAPACITY 170 ug/dl (250-425); VALPROIC ACID 3.3 ug/mL (50-100)
[2024-01-25 23:41] LABS: TROPONIN I HIGH SENSITIVITY < 4 ng/L (3.0-53)
[2024-01-25 23:56] LABS: FERRITIN 36 ng/mL (22-322); FOLIC ACID (FOLATE) SERUM > 20.00 ng/mL (>5.38); VITAMIN B12 SERUM 1056 pg/mL (211-911)
[2024-01-26] VITALS (12 sets, daily range): BP systolic 117–141; BP diastolic 75–96; PULSE 72–81; RESP 12–19; TEMP 97.5–99.1
[2024-01-26] MEDS ORDERED: PIPERACILLIN/TAZO 3.375G/50ML 50 ML IV SCH (01:00)
[2024-01-26] MEDS: KETOROLAC 15MG/ML VIAL IV PRN (01:06)
[2024-01-26] MEDS: PIPERACILLIN/TAZO 3.375G/50ML 50 ML IV SCH (06:10)
[2024-01-26 06:49] LABS: BASOPHILS % 0.4 % (0.0-2.0); EOSINOPHILS % 2.7 % (0.0-5.0); HEMATOCRIT. 37.4 % (42.0-52.0); LYMPHOCYTES % 21.4 % (20.0-50.0); MEAN CORPUSCULAR HEMOGLOBIN 26.5 pg (28.0-32.0); MEAN CORPUSCULAR HGB CONC 32.1 g/dL (31.0-37.0); MEAN CORPUSCULAR VOLUME 82.5 fL (80.0-94.0); MEAN PLATELET VOLUME 9.9 fl (7.4-10.4); MONOCYTES % 9.7 % (2.0-8.0); NEUTROPHILS % 65.8 % (40.0-76.0); PLATELET 220 x1000/uL (130-400); RED BLOOD CELL COUNT 4.53 mill/uL (4.7-6.1); RED CELL DISTRIBUTION WIDTH 17.6 % (11.6-14.6); WHITE BLOOD COUNT 7.6 x1000/uL (4.5-11.0)
[2024-01-26] MEDS: CARBIDOPA/LEVODOPA 10/100MG TABLET PO SCH (06:56)
[2024-01-26 07:11] LABS: ALANINE AMINOTRANSFERASE 17 IU/L (10-49); ALBUMIN 4.3 g/dL (3.2-4.8); ASPARTATE AMINOTRANSFERASE 16 IU/L (<34); BILIRUBIN TOTAL 0.2 mg/dL (0.1-1.0); CALCIUM 9.5 mg/dL (8.7-10.4); CARBON DIOXIDE 25 mEq/L (21-32); CHLORIDE 101 mEq/L (98-107); CHOLESTEROL 104 mg/dL (<200); CREATINE KINASE 32 IU/L (46-171); GLUCOSE 240 mg/dL (70-105); HDL CHOLESTEROL 41 mg/dL (>55); LDL CHOLESTEROL 39 mg/dL (5-100); POTASSIUM 4.2 mEq/L (3.5-5.1); PROTEIN TOTAL 9.2 g/dL (6.0-8.3); SODIUM 134 mEq/L (136-145); TRIGLYCERIDE 197 mg/dL (0-150); UREA NITROGEN BLOOD 47 mg/dL (9-23)
[2024-01-26 07:26] LABS: TROPONIN I HIGH SENSITIVITY < 4 ng/L (3.0-53)
[2024-01-26 07:44] LABS: HEPATITIS B SURFACE ANTIGEN NEGATIVE (Negative); HEPATITIS C AB NON REACTIVE (Neg) (Negative)
[2024-01-26] MEDS ORDERED: INSULIN LISPRO 100 UNITS/ML SUBCUT SCH (08:00)
[2024-01-26] MEDS ORDERED: DEXTROSE 50% WATER 50ML SYRINGE IV PRN (08:00)
[2024-01-26] MEDS: BLOOD SUGAR DIAGNOSTIC STRIP TEST SCH (08:21)
[2024-01-26] MEDS: GUAIFENESIN 200MG/10ML SUGAR FREE UDC PO PRN (08:39)
[2024-01-26] MEDS: VANCOMYCIN 1.5GM/250ML 250 ML IV NR (08:39)
[2024-01-26] MEDS: FERROUS SULFATE 325MG TABLET PO SCH (08:40)
[2024-01-26] MEDS: ACETAMINOPHEN 325MG TABLET PO PRN (08:40)
[2024-01-26] MEDS: SERTRALINE HCL 50MG TABLET PO SCH (08:41)
[2024-01-26] MEDS: PANTOPRAZOLE 40MG DR TABLET PO SCH (08:41)
[2024-01-26] MEDS: ASPIRIN 81MG EC TABLET PO SCH (08:41)
[2024-01-26] MEDS: ENOXAPARIN 30MG/0.3ML SYR SUBCUT SCH (08:42)
[2024-01-26] MEDS: INSULIN LISPRO 100 UNITS/ML SUBCUT SCH (08:47)
[2024-01-26] MEDS ORDERED: LEVODOPA PO SCH (09:00)
[2024-01-26] MEDS ORDERED: CARBIDOPA PO SCH (09:00)
[2024-01-26] MEDS ORDERED: [UNRECOGNIZED DRUG - OTHER] PO SCH (09:00)
[2024-01-26] MEDS: ATORVASTATIN CALCIUM 40MG TABLET PO SCH (20:11)
[2024-01-26] MEDS: INSULIN GLARGINE 100 UNITS/ML SUBCUT SCH (22:08)
[2024-01-27] VITALS (9 sets, daily range): BP systolic 113–146; BP diastolic 73–93; PULSE 63–99; RESP 12–31; TEMP 97.7–98
[2024-01-27 06:33] LABS: BASOPHILS % 0.4 % (0.0-2.0); EOSINOPHILS % 3.6 % (0.0-5.0); HEMATOCRIT. 39.9 % (42.0-52.0); HEMOGLOBIN. 12.9 g/dL (14.0-18.0); LYMPHOCYTES % 22.5 % (20.0-50.0); MEAN CORPUSCULAR HEMOGLOBIN 26.9 pg (28.0-32.0); MEAN CORPUSCULAR HGB CONC 32.3 g/dL (31.0-37.0); MEAN CORPUSCULAR VOLUME 83.3 fL (80.0-94.0); NEUTROPHILS % 65.5 % (40.0-76.0); RED BLOOD CELL COUNT 4.79 mill/uL (4.7-6.1); RED CELL DISTRIBUTION WIDTH 17.3 % (11.6-14.6)
[2024-01-27 06:53] LABS: CALCIUM 8.8 mg/dL (8.7-10.4); CREATININE 1.8 mg/dL (0.6-1.3); POTASSIUM 4.8 mEq/L (3.5-5.1)
[2024-01-27 07:18] LABS: DIFFERENTIAL COMMENT 1
[2024-01-27] MEDS: VANCOMYCIN 1.25GM PMX (XELLIA) 250 ML IV SCH (12:03)
[2024-01-27] MEDS ORDERED: [UNRECOGNIZED DRUG - CODE] PO (14:57)
[2024-01-27] MEDS ORDERED: HYDR100T31 PO (14:57)
[2024-01-27] MEDS ORDERED: OXYC1TAB12 PO (14:57)
[2024-01-27] MEDS ORDERED: DIVA250T4 PO (14:57)
[2024-01-27] MEDS ORDERED: ASPI-1160 PO (14:57)
[2024-01-27] MEDS ORDERED: NITR0.4T49 SL (14:57)
[2024-01-27] MEDS ORDERED: SODI10PO PO (14:57)
[2024-01-27] MEDS ORDERED: MSCON15 PO (14:57)
[2024-01-27] MEDS ORDERED: SITA25TA3 PO (14:59)
[2024-01-27] MEDS ORDERED: WARF7.5T48 PO (14:59)
[2024-01-28 00:04] VITALS: BP 137/93; PULSE 75; RESP 20; TEMP 97.9
[2024-01-28] MEDS: KETOROLAC 15MG/ML VIAL IV PRN (02:45)
[2024-01-28 04:00] VITALS: BP 116/73; PULSE 78; RESP 16; TEMP 97.5
[2024-01-28 08:00] VITALS: BP 124/79; PULSE 72; RESP 18; TEMP 97.6
[2024-01-28] MEDS: FAMOTIDINE 20MG TABLET PO SCH (08:49)
[2024-01-28] MEDS: PANTOPRAZOLE 40MG DR TABLET PO SCH (08:50)
[2024-01-28] MEDS: SODIUM HYPOCHLORITE (0.25%) 480ML SOLUTION (HALF STRENGTH) TOP SCH (08:55)
[2024-01-28 12:00] VITALS: BP 125/86; PULSE 78; RESP 18; TEMP 97.6
[2024-01-28] MEDS ORDERED: ONDANSETRON HCL 4MG/2ML INJ IV PRN (13:45)
[2024-01-28 16:00] VITALS: BP 139/76; PULSE 79; RESP 18; TEMP 97.7
[2024-01-28] MEDS: VANCOMYCIN 1GM/200ML PMX (BAXTER) IV NR (17:30)
[2024-01-28 20:00] VITALS: BP 159/95; PULSE 82; RESP 20; TEMP 97.9
[2024-01-29] VITALS: BP 121/79; PULSE 85; RESP 20; TEMP 98.1
[2024-01-29 04:00] VITALS: BP 143/89; PULSE 70; RESP 20; TEMP 98.1
[2024-01-29] MEDS: LIDOCAINE HCL 1% 20ML VIAL (Pyxis) INJ INFIL NR (07:21)
[2024-01-29 08:00] VITALS: BP 121/88; PULSE 83; RESP 20; TEMP 97.7
[2024-01-29 11:48] LABS: CALCIUM 8.4 mg/dL (8.7-10.4); CREATININE 1.9 mg/dL (0.6-1.3); POTASSIUM 4.1 mEq/L (3.5-5.1)
[2024-01-29 12:12] LABS: ERYTHROCYTE SEDIMENTATION RATE 74 mm/hr (0-20)
[2024-01-29 12:17] VITALS: BP 127/85; PULSE 76; RESP 18; TEMP 98.7
[2024-01-29 12:25] LABS: BASOPHILS % 0.3 % (0.0-2.0); EOSINOPHILS % 2.9 % (0.0-5.0); HEMATOCRIT. 36.8 % (42.0-52.0); HEMOGLOBIN. 11.9 g/dL (14.0-18.0); LYMPHOCYTES % 17.3 % (20.0-50.0); MEAN CORPUSCULAR HEMOGLOBIN 26.4 pg (28.0-32.0); MEAN CORPUSCULAR HGB CONC 32.2 g/dL (31.0-37.0); MEAN CORPUSCULAR VOLUME 81.9 fL (80.0-94.0); MEAN PLATELET VOLUME 9.6 fl (7.4-10.4); MONOCYTES % 11.1 % (2.0-8.0); NEUTROPHILS % 68.4 % (40.0-76.0); PLATELET 181 x1000/uL (130-400); RED CELL DISTRIBUTION WIDTH 17.5 % (11.6-14.6)
[2024-01-29] MEDS: INSULIN LISPRO 100 UNITS/ML SUBCUT SCH (13:49)
[2024-01-29 15:47] VITALS: BP 124/82; PULSE 88; RESP 20; TEMP 97.6
[2024-01-29] MEDS: VANCOMYCIN 750MG/150ML IV NR (17:27)
[2024-01-29 20:00] VITALS: BP 125/80; PULSE 77; RESP 20; TEMP 99.5
[2024-01-30] VITALS: BP 139/85; PULSE 73; RESP 20; TEMP 100
[2024-01-30 04:20] VITALS: BP 129/91; PULSE 73; RESP 20; TEMP 97.9
[2024-01-30 08:00] VITALS: BP 145/87; PULSE 63; RESP 20; TEMP 97.9
[2024-01-30 11:26] LABS: BASOPHILS % 0.3 % (0.0-2.0); EOSINOPHILS % 3.3 % (0.0-5.0); HEMATOCRIT. 37.9 % (42.0-52.0); HEMOGLOBIN. 12.1 g/dL (14.0-18.0); LYMPHOCYTES % 19.9 % (20.0-50.0); MEAN CORPUSCULAR HEMOGLOBIN 26.4 pg (28.0-32.0); MEAN CORPUSCULAR HGB CONC 31.8 g/dL (31.0-37.0); MEAN PLATELET VOLUME 9.1 fl (7.4-10.4); MONOCYTES % 10.5 % (2.0-8.0); PLATELET 180 x1000/uL (130-400); RED BLOOD CELL COUNT 4.57 mill/uL (4.7-6.1); RED CELL DISTRIBUTION WIDTH 17.5 % (11.6-14.6); WHITE BLOOD COUNT 6.4 x1000/uL (4.5-11.0)
[2024-01-30 11:58] VITALS: BP 119/79; PULSE 70; RESP 20; TEMP 97.7
[2024-01-30 12:08] LABS: CALCIUM 8.7 mg/dL (8.7-10.4); CREATININE 1.9 mg/dL (0.6-1.3); POTASSIUM 3.8 mEq/L (3.5-5.1)
[2024-01-30] MEDS ORDERED: METRONIDAZOLE 250 MG PREMIX 50 ML IV SCH (12:15)
[2024-01-30] MEDS: METRONIDAZOLE 250MG TABLET PO SCH (12:34)
[2024-01-30 16:00] VITALS: BP 118/70; PULSE 67; RESP 18; TEMP 97.9
[2024-01-30] MEDS ORDERED: METR375C2 PO (17:20)
[2024-01-30] MEDS ORDERED: LINE600T14 PO (17:20)
[2024-01-30 20:00] VITALS: BP 125/84; PULSE 77; RESP 18; TEMP 98
[2024-01-31] VITALS: BP 136/87; PULSE 72; RESP 20; TEMP 98.1
[2024-01-31 04:30] VITALS: BP 122/84; PULSE 73; RESP 18; TEMP 97.7
[2024-01-31] MEDS ORDERED: LIDOCAINE HCL 1% 10 MG/ML 10ML VIAL ONE (07:26)
[2024-01-31] MEDS: METRONIDAZOLE 500MG TABLET PO SCH (09:20)
[2024-01-31] MEDS: KETOROLAC 15MG/ML VIAL IV PRN (10:38)
[2024-01-31 12:00] VITALS: BP 107/71; PULSE 95; RESP 18; TEMP 97.7
[2024-01-31] MEDS: CEFTRIAXONE 2GM/50ML 50 ML IV SCH (12:38)
[2024-01-31 16:00] VITALS: BP 109/80; PULSE 92; RESP 18; TEMP 97.9
[2024-01-31 17:38] VITALS: BP 138/65; PULSE 87; TEMP 97.1; O2SAT 100
== END 2024-01-31 18:30 | disposition home health service (06) | DRG 793 ==
LOC: ER 14:56 → 5EST 17:59 → 7WST 01-27 23:18
PROVIDERS: ADMIT Internal Medicine; ATTEND Internal Medicine
PROC: 0KBV0ZZ Excision of Right Foot Muscle, Open Approach (ICD-10-PCS; principal; 2024-01-29)
PROC: 02HV33Z Insertion of Infusion Device into Superior Vena Cava, Percutaneous Approach (ICD-10-PCS; 2024-01-31)
PROC: B5181ZA Fluoroscopy of Superior Vena Cava using Low Osmolar Contrast, Guidance (ICD-10-PCS; 2024-01-31)
PROC: B548ZZA Ultrasonography of Superior Vena Cava, Guidance (ICD-10-PCS; 2024-01-31)
DX: T81.31XA Disruption of external operation (surgical) wound, not elsewhere classified, initial encounter (principal); G93.41 Metabolic encephalopathy; M86.171 Other acute osteomyelitis, right ankle and foot; E11.319 Type 2 diabetes mellitus with unspecified diabetic retinopathy without macular edema; E11.22 Type 2 diabetes mellitus with diabetic chronic kidney disease; G45.9 Transient cerebral ischemic attack, unspecified; E11.42 Type 2 diabetes mellitus with diabetic polyneuropathy; G40.909 Epilepsy, unspecified, not intractable, without status epilepticus; I48.91 Unspecified atrial fibrillation; D64.9 Anemia, unspecified; E11.69 Type 2 diabetes mellitus with other specified complication; E11.621 Type 2 diabetes mellitus with foot ulcer; I13.0 Hypertensive heart and chronic kidney disease with heart failure and stage 1 through stage 4 chronic kidney disease, or unspecified chronic kidney disease; I50.9 Heart failure, unspecified; I25.10 Atherosclerotic heart disease of native coronary artery without angina pectoris; I69.354 Hemiplegia and hemiparesis following cerebral infarction affecting left non-dominant side; N18.30 Chronic kidney disease, stage 3 unspecified; R74.8 Abnormal levels of other serum enzymes; E11.51 Type 2 diabetes mellitus with diabetic peripheral angiopathy without gangrene; L97.522 Non-pressure chronic ulcer of other part of left foot with fat layer exposed; E78.00 Pure hypercholesterolemia, unspecified; J44.9 Chronic obstructive pulmonary disease, unspecified; G20.A1 Parkinson's disease without dyskinesia, without mention of fluctuations; N40.0 Benign prostatic hyperplasia without lower urinary tract symptoms; F41.9 Anxiety disorder, unspecified; L98.492 Non-pressure chronic ulcer of skin of other sites with fat layer exposed; Z79.4 Long term (current) use of insulin; Z79.82 Long term (current) use of aspirin; Z79.899 Other long term (current) drug therapy; Z87.891 Personal history of nicotine dependence; Z89.421 Acquired absence of other right toe(s)
CPT/HCPCS: 36415; 36573; 70496; 70498; 70551; 71045; 73630; 73721; 80048; 80053; 80061; 80165; 80202; 80305; 80320; 81003; 82550; 82607; 82728; 82746; 82803; 82962; 83036; 83540; 83550; 83930; 84145; 84439; 84443; 84484; 85025; 85651; 86705; 87070; 87075; 87076; 87077; 87186; 87340; 93005; 93923; 93970; 94640; 97110; 97116; 97162; 97166; 97530; 97535; 99291; C1725; J0696; J1650; J1815; J1885; J2543; J3370; J3490; Q9967; G0480

== ENCOUNTER 2024-07-28 22:29 | Emergency (ER) | payer MEDICAID ==
[~2024-07-28] VITALS: Ht 182.9 cm; Wt 102.0 kg
[~2024-07-28 22:29] MED LIST changes: +ASPI-1160 PO; -BACL20TA PO; -CHLO25TA2 PO; -CHOL-36; -DICL100G58 TP; -HYDR100T26 PO; +LEVE500T19 PO; +NITR0.4T49 SL; -OMEP20CA14 PO; +OXYC1TAB12 PO; +PANT40TA51 PO; -SITA25TA3 PO; -WARF7.5T48 PO; +[UNRECOGNIZED DRUG - CODE] PO
[2024-07-28 22:32] VITALS: TEMP 98.8; O2SAT 100
[2024-07-28 23:58] VITALS: O2SAT 100
[2024-07-29 00:28] VITALS: BP 149/80; PULSE 86; RESP 18
[2024-07-29] MEDS: IBUPROFEN 400MG TABLET PO ONE (00:28)
[2024-07-29 00:57] LABS: BASOPHILS % 0.4 % (0.0-2.0); HEMATOCRIT. 39.2 % (42.0-52.0); HEMOGLOBIN. 12.6 g/dL (14.0-18.0); MEAN CORPUSCULAR HEMOGLOBIN 26.9 pg (28.0-32.0); MEAN CORPUSCULAR HGB CONC 32.1 g/dL (31.0-37.0); MEAN CORPUSCULAR VOLUME 83.9 fL (80.0-94.0); MEAN PLATELET VOLUME 9.4 fl (7.4-10.4); MONOCYTES % 11.7 % (2.0-8.0); NEUTROPHILS % 72.9 % (40.0-76.0); PLATELET 214 x1000/uL (130-400); RED BLOOD CELL COUNT 4.67 mill/uL (4.7-6.1); RED CELL DISTRIBUTION WIDTH 17.7 % (11.6-14.6)
[2024-07-29 00:58] LABS: CHLORIDE 105 mEq/L (98-107); SODIUM 136 mEq/L (136-145)
[2024-07-29 00:59] LABS: CALCIUM 8.9 mg/dL (8.7-10.4); CARBON DIOXIDE 23 mEq/L (21-32)
[2024-07-29 01:04] LABS: GLUCOSE 183 mg/dL (70-105); INR 1.5; PARTIAL THROMBOPLASTIN TIME 34.7 sec (23.4-31.0); UREA NITROGEN BLOOD 50 mg/dL (9-23)
[2024-07-29 01:17] LABS: ETHANOL BLOOD < 10 mg/dL (<10); TROPONIN I HIGH SENSITIVITY < 4 ng/L (3.0-53)
[2024-07-29] MEDS ORDERED: ACET-2708 MT (01:42)
== END 2024-07-29 02:02 | disposition home or self-care (01) ==
LOC: ER 22:29
DX: E11.621 Type 2 diabetes mellitus with foot ulcer (principal); I11.0 Hypertensive heart disease with heart failure; I50.9 Heart failure, unspecified; I48.91 Unspecified atrial fibrillation; Z00.00 Encounter for general adult medical examination without abnormal findings; Z79.899 Other long term (current) drug therapy; Z98.890 Other specified postprocedural states
CPT/HCPCS: 36415; 71045; 73630; 80048; 80320; 83880; 84484; 85025; 93005; 99285; G0480

== ENCOUNTER 2024-11-22 11:11 | Emergency (ER) | payer MEDICAID ==
[~2024-11-22] VITALS: Ht 175.3 cm; Wt 95.0 kg
[~2024-11-22 11:11] MED LIST changes: +ACET-2708 MT; +GABA-1180 PO; -GABA-532 PO; +INSLIS SUBCUT; +LANTUSUD SUBCUT
[2024-11-22] MEDS ORDERED: NITROGLYCERIN 0.4MG TABLET SL SL PRN (11:30)
[2024-11-22] MEDS ORDERED: FUROSEMIDE 40MG/4ML VIAL IV ONE (11:30)
[2024-11-22 12:00] VITALS: PULSE 86; RESP 20; O2SAT 97
[2024-11-22] MEDS: IPRATROPIUM BROMIDE (0.02%) 0.5MG/2.5ML NEB HHN STA (12:00)
[2024-11-22] MEDS: ALBUTEROL (0.083%) 2.5MG/3ML NEB HHN STA (12:00)
[2024-11-22 12:14] LABS: BASOPHILS % 0.2 % (0.0-2.0); EOSINOPHILS % 2.4 % (0.0-5.0); HEMATOCRIT. 39.8 % (42.0-52.0); HEMOGLOBIN. 12.4 g/dL (14.0-18.0); LYMPHOCYTES % 11.5 % (20.0-50.0); MEAN CORPUSCULAR HEMOGLOBIN 26.8 pg (28.0-32.0); MEAN CORPUSCULAR HGB CONC 31.3 g/dL (31.0-37.0); MEAN CORPUSCULAR VOLUME 85.6 fL (80.0-94.0); MEAN PLATELET VOLUME 8.9 fl (7.4-10.4); MONOCYTES % 7.7 % (2.0-8.0); NEUTROPHILS % 78.2 % (40.0-76.0); PLATELET 209 x1000/uL (130-400); RED BLOOD CELL COUNT 4.65 mill/uL (4.7-6.1); WHITE BLOOD COUNT 8.8 x1000/uL (4.5-11.0)
[2024-11-22 12:21] LABS: CHLORIDE 107 mEq/L (98-107); POTASSIUM 4.7 mEq/L (3.5-5.1); SODIUM 138 mEq/L (136-145)
[2024-11-22 12:22] LABS: CARBON DIOXIDE 20 mEq/L (21-32)
[2024-11-22 12:23] LABS: CALCIUM 9.3 mg/dL (8.7-10.4)
[2024-11-22 12:27] LABS: CREATININE 1.9 mg/dL (0.6-1.3)
[2024-11-22 12:28] LABS: UREA NITROGEN BLOOD 29 mg/dL (9-23)
[2024-11-22 12:42] LABS: BG BASE EXCESS -0.9 mmol/L (-2.0-3.0); BG CARBOXYHEMOGLOBIN 0.6 % (0.5-1.5); BG DEOXYHEMOGLOBIN 0.4 % (0.0-5.0); BG FRACTION INSPIRED OXYGEN 50; BG METHEMOGLOBIN 0.3 % (0.5-1.5); BG OXYGEN SATURATION 99.6 % (94.0-98.0); BG OXYHEMOGLOBIN 98.7 % (94.0-98.0); BG PCO2 40.8 mmHg (35.0-48.0); BG PH 7.388 (7.350-7.450); BG PO2 259.8 mmHg (83.0-108.0); BG SAMPLE SITE RIGHT BRACHIAL; BG TOTAL HEMOGLOBIN 12.4 g/dL (13.5-17.5); BG VENT MODE HHN TX
[2024-11-22 13:22] LABS: GLUCOSE 180 mg/dL (70-105); TROPONIN I HIGH SENSITIVITY < 4 ng/L (3.0-53)
[2024-11-22 13:23] LABS: ETHANOL BLOOD < 10 mg/dL (<10)
[2024-11-22 14:44] LABS: TROPONIN I HIGH SENSITIVITY < 4 ng/L (3.0-53)
[2024-11-22 16:00] VITALS: BP 128/81; PULSE 86; RESP 20; TEMP 36.83628; O2SAT 99
== END 2024-11-22 20:03 | disposition left against medical advice (07) ==
LOC: ER 11:11
DX: R07.9 Chest pain, unspecified (principal); E11.9 Type 2 diabetes mellitus without complications; I11.0 Hypertensive heart disease with heart failure; I50.9 Heart failure, unspecified; J45.909 Unspecified asthma, uncomplicated; I48.91 Unspecified atrial fibrillation; Z79.82 Long term (current) use of aspirin; Z79.84 Long term (current) use of oral hypoglycemic drugs; Z79.899 Other long term (current) drug therapy; Z99.2 Dependence on renal dialysis
CPT/HCPCS: 80048; 80320; 83880; 85025; 84484; 36415; 71045; 94640; 82805; 82375; 93005; 94070; 99285; 36600; Z7610 ×3; G0480